=== PATIENT | male | born 1970 | race Two or more races ===

== ENCOUNTER 2021-11-09 17:24 | Emergency (ER) | payer MEDICARE, MEDICAID, SELFPAY ==
[2021-11-09 17:33] VITALS: BP 124/81; PULSE 98; RESP 18; TEMP 36.9; O2SAT 98; BMI 30.7
[2021-11-09 17:43] LABS: MANUAL DIFF FLAG NO
[2021-11-09 17:44] LABS: Basophils Percent Auto 0.3 % (0-2); Hematocrit 44.3 % (42.0-52.0); Imm Gran Abs Auto 0.04 X10*3/uL (0.00-0.03); Imm Gran Pct Auto 0.3 % (0.0-0.4); Lymphocytes Absolute Auto 2.8 X10*3/uL (1.2-4.9); Mean Corpuscular HGB Conc 33.9 g/dl (31.0-36.0); Mean Corpuscular Hemoglobin 29.8 pg (27.0-33.0); Mean Corpuscular Volume 88.1 fL (80.0-98.0); Monocytes Absolute Auto 1.1 X10*3/uL (0.1-1.2); Monocytes Percent Auto 8.7 % (2-11); Neutrophils Absolute Auto 9.2 x10*3/uL (2.0-8.3); Neutrophils Percent Auto 69.7 % (45-73); Platelet Count 282 X10*3/uL (160-400); Red Blood Count 5.03 X10*6/uL (4.60-5.80); Red Cell Distribution Width 14.8 % (11.0-16.0); White Blood Count 13.2 X10*3/uL (4.8-10.8)
[2021-11-09 18:03] LABS: Alanine Aminotransferase 250 U/L (0-40); Alkaline Phosphatase 155 U/L (39-117); Anion Gap 15 (12-20); Aspartate Amino Transferase 755 U/L (5-37); Bilirubin Direct 1.8 mg/dL (0.0-0.5); Bilirubin Total 3.3 mg/dL (0.0-1.0); Blood Urea Nitrogen 22 mg/dL (9-16); Calcium 9.1 mg/dL (8.4-10.2); Carbon Dioxide 20 mmol/L (22-29); Chloride 96 mmol/L (96-108); Creatinine Clr Calc Pharmacy 94.1; Estimated Glomerular Filt Rate > 60; Glucose Random 127 mg/dL (60-115); Lipase 89 U/L (8-78); Potassium 4.3 mmol/L (3.3-5.1); Sodium 127 mmol/L (135-145)
== END 2021-11-10 02:01 | disposition left against medical advice (07) ==
PROVIDERS: Emergency Provider Emergency Medicine
DX: R10.9 Unspecified abdominal pain (principal); R11.10 Vomiting, unspecified; R42 Dizziness and giddiness
CPT/HCPCS: 36415; 80048; 80076; 83690; 85025; 99283

== ENCOUNTER 2023-05-23 09:47 | Inpatient (IN) | payer OTHER, SELFPAY ==
[2023-05-23] VITALS (8 sets, daily range): BP systolic 99–159; BP diastolic 40–84; PULSE 86–100; RESP 14–24; TEMP 36.7–37.7; O2SAT 87–98; BMI 41.5
--- NOTE | ~2023-05-23 | CT_ITS ---
EXAMINATION: CT CHEST WITHOUT CONTRAST CLINICAL INFORMATION: abnormal cxr findings. COMPARISON: No pertinent prior studies are available for comparison. TECHNIQUE: Multidetector volumetric imaging was performed from the thoracic inlet through the lung bases without contrast. Sagittal and coronal reformatted images were obtained on the technologist workstation. Soft tissue and lung algorithms evaluated. Thick slab MIP images were performed to increase nodule conspicuity. This CT examination was performed using dose optimization techniques as appropriate, variously including the following: *Automated exposure control *Adjustment of mA and/or kV according to patient size (this includes techniques or standardized protocols for targeted exams where dose is matched to indication/reason for exam; i.e. extremities or head) *Use of iterative reconstruction technique DLP: 493 mGy-cm. FINDINGS: LUNG: Minimal dependent airspace disease more likely reflecting a component of atelectasis/consolidation more so the right base where there are some subtle air bronchograms present. Tiny calcified granuloma also seen in the right lower lobe. Central airways are unremarkable. Tiny layering right effusion MEDIASTINUM: The mediastinum is normal. The central vascular structures are unremarkable. No hilar or mediastinal lymphadenopathy. CORONARY ARTERY CALCIFICATION: Absent PERICARDIUM/PLEURA: Small right pleural effusion THYROID/VISUALIZED LOWER NECK: Unremarkable. CHEST WALL/AXILLA: Bilateral gynecomastia VISUALIZED UPPER ABDOMEN: Slight nodular configuration to the liver. Spleen measures 16.2 cm maximal AP diameter. There does appear to be recanalization of the umbilical vein and some perisplenic varicosities present suggesting underlying portal hypertension. BONES: Degenerative changes in the spine. CT/CT chest wo IV con IMPRESSION: 1. Small right pleural effusion with mild right basilar airspace disease more likely due to atelectasis/consolidation. 2. Nodular configuration to the liver with splenomegaly and recanalization of the umbilical vein suggesting underlying portal hypertension.
--- NOTE | ~2023-05-23 | US_ITS ---
LIMITED ABDOMINAL ULTRASOUND. HISTORY: Cirrhosis. Evaluate ascites. US/US abdomen limited FINDINGS/IMPRESSION: Ultrasound examination of the 4 quadrants of the abdomen demonstrates no evidence of ascites. Intra-abdominal organs are not evaluated by this exam.
--- NOTE | ~2023-05-23 | XR_ITS ---
EXAMINATION: XR CHEST CLINICAL INFORMATION: Hypoxia COMPARISON: None available. TECHNIQUE: Frontal view of the chest was obtained. FINDINGS: There are bilateral airspace opacities, somewhat nodular, greater in the mid and lower lung zones. The right hilum is prominent. There are no pleural effusions. The cardiac silhouette is magnified by the AP position. XR/XR chest 1V IMPRESSION: Bilateral perihilar and lower lobe airspace opacities, nonspecific. Differential considerations include infectious, inflammatory and neoplastic processes. Thoracic CT with contrast might be of benefit in better assessing the extent and etiology of the findings.
--- NOTE | ~2023-05-23 | US_ITS ---
EXAMINATION: US SCROTUM CLINICAL INFORMATION: Scrotal swelling.. COMPARISON: None available. TECHNIQUE: A sonogram of the scrotum was performed assessing white-scale appearance and color Doppler flow. Spectral Doppler analysis of the arterial and venous flow were performed in the testes bilaterally. FINDINGS: RIGHT: Right testicle measures 4.03 x 2.5 x 3.0 cm, volume 16.0 mL. No focal testicular parenchymal lesions are visualized. Spectral Doppler analysis of the arterial and venous flow is normal in the right testis. Right epididymal head is normal in size. No right hydrocele or varicocele is seen. Right epididymal Doppler flow is normal. There is right inguinal hernia containing fat extending to the scrotum. LEFT: Left testicle measures 4.2 x 1.9 x 2.9 cm, volume 12.1 mL. No focal testicular parenchymal lesions are visualized. Spectral Doppler analysis of the arterial and venous flow is normal in the left testis. Left epididymal head is normal in size. There is a left epididymal head cysts measuring 0.3 x 0.25 x 0.3 cm. No left hydrocele or varicocele is seen. Left epididymal Doppler flow is normal. US/US scrotum IMPRESSION: 1. Right inguinal hernia containing fat extending to superior scrotum. 2. Small left epididymal head cyst. 3. Both testes are unremarkable. There is normal color flow to testes and epididymis
--- NOTE | 2023-05-23 10:14 | ED_ITS ---
HPI - General Adult General Chief complaint: General Medical Stated complaint: DYSURIA [id number], SWOLLEN TESTICLES/LE Time Seen by Provider: 05/23/23 10:03 Source: patient and RN notes reviewed Mode of arrival: ambulatory Limitations: no limitations History of Present Illness HPI narrative: This is a 52-year-old Bulgarian-speaking male, with a history of hypertension, liver cirrhosis, history of alcohol abuse, presenting to the emergency department with complaints of bilateral lower extremity swelling for the last several months and testicular swelling which started last night. Patient is currently on hydrochlorothiazide, which he has been taking however has noticed of the diuretic is no longer working. Patient reports that yesterday while he was watching TV notice that his testicles were much more swollen. Patient denies any dysuria, hematuria, urinary frequency or urgency. Denies any fevers, chills, chest pain. No other complaints or concerns at this time. MD complaint: LE swelling, testicular swelling Onset (ago): day(s) Location: genitals and lower extremity Radiation: non-radiation Quality: aching Pain Consistency: constant Relieving factors: none Exacerbating factors: none Associated symptoms: denies other symptoms Treatments prior to arrival: none Related Data Home Medications Medication Instructions Recorded Confirmed albuterol sulfate 90 mcg/actuation 2 puff inhalation Q6H PRN wheezing 05/23/23 05/23/23 aerosol inhaler (Ventolin HFA) amlodipine 5 mg tablet 5 mg PO DAILY 05/23/23 05/23/23 cholecalciferol (vitamin D3) 25 25 mcg DAILY 05/23/23 05/23/23 mcg (1,000 unit) capsule folic acid 1 mg tablet 1 mg PO DAILY 05/23/23 05/23/23 furosemide 20 mg tablet 20 mg DAILY 05/23/23 05/23/23 hydrochlorothiazide 12.5 mg tablet 12.5 mg PO DAILY 05/23/23 05/23/23 hydroxyzine HCl 25 mg tablet 25 mg PO BID PRN Anxiety 05/23/23 05/23/23 omeprazole 20 mg capsule,delayed 20 mg DAILY 05/23/23 05/23/23 release sertraline 50 mg tablet 50 mg PO DAILY 05/23/23 05/23/23 spironolactone 50 mg tablet 50 mg PO DAILY 05/23/23 05/23/23 thiamine HCl (vitamin B1) 100 mg 100 mg DAILY 05/23/23 05/23/23 tablet trazodone 50 mg tablet 50 mg PO BEDTIME insomnia 05/23/23 05/23/23 Allergies Allergy/AdvReac Type Severity Reaction Status Date / Time aspirin Allergy Unknown rash Verified 05/23/23 10:05 Shrimp Flavor Allergy Unknown anaphylaxis Uncoded 05/23/23 10:05 Review of Systems 2 Review of Systems: Yes all other systems are reviewed and are negative Constitutional: Constitutional: Reports as per [facility] Past Medical History Medical History Pancreatic lesion Peripheral neuropathy Portal vein thrombosis Recurrent acute pancreatitis Joint pain Insomnia Anxiety Asthma Hypertension Depression Alcoholic fatty liver Alcoholic cirrhosis of liver Alcohol abuse Social History Social History Household Members: None Housing: Apartment Do you presently have visiting nurse or other home services: Yes (2 nurses and in the process of getting a air conditioning mechanic. for bp checks and meds) Alcohol intake: current Alcohol intake frequency: 3 or more drinks per day Alcohol type: beer Comment: pt refuse Patient Tobacco Use Status: Current everyday Tobacco user Tobacco use type: Cigarette Cigarette Packs Per Day: 1 Cigarettes Per Day: 20.0 Years Smoked: 33 Second Hand Smoke Exposure: No service: No Physical Exam ED Vital Signs: Vital Signs - 24 hr 05/23/23 09:58 05/23/23 10:13 05/23/23 11:41 Temperature 98.1 F 98.1 F 98.3 F Pulse Rate 86 86 96 Respiratory Rate 18 18 24 H Blood Pressure 133/66 133/66 99/45 L Pulse Oximetry 98 98 87 L Oxygen Delivery Method Room Air Room Air Room Air Oxygen Flow Rate 05/23/23 12:50 05/23/23 13:42 Temperature 98.4 F Pulse Rate 95 Respiratory Rate 20 Blood Pressure 121/68 Pulse Oximetry 95 98 Oxygen Delivery Method Room Air Oxymask Oxygen Flow Rate 3 BMI result Body Mass Index 41.5 Const General: cooperative, comfortable and no acute distress Orientation/consciousness: patient oriented x3 Limitations: no limitations HENMT Head: Yes normal to inspection, Yes normocephalic and Yes atraumatic Ears: hearing grossly normal bilaterally General nose exam: Normal external nose present Face and sinus: Yes normal facial exam Mouth: Normal oral and palatal mucosa present, oropharynx normal and moist mucous membranes Throat: Yes posterior oropharynx normal Eyes General: appearance normal, both eyes and all related structures Eyelids: Yes eyelids normal Conjunctivae: conjunctivae normal Sclerae: sclerae normal Pupils: Equal, round and reactive pupils present EOM: EOMs intact bilaterally Neck Neck: Yes normal visual inspection, Yes full ROM and Yes no lymphadenopathy Lymphatic: no lymphadenopathy noted Chest Chest palpation & inspection: normal inspection of the chest Resp Effort & Inspection: normal respiratory effort and able to speak in complete sentences Auscultation: clear to auscultation bilaterally, no crackles, no rales, no rhonchi and no wheezes Cardio Rate: regular rate Rhythm: regular rhythm Heart sounds: S1 normal heart sound present and S2 normal heart sound present GI Inspection: Yes normal to inspection Other: BL testes are edematous, nonerythematous,no palpable masses. non-tender. Examination performed with card hanger present at all times during examination. Skin General skin exam: no rashes or lesions noted Trauma: no lacerations or abrasions Wounds: no wounds Neuro General: patient oriented x3 and moves all extremities Cranial nerves: Yes Equal, round and reactive pupils present Extrem Other: 2+ pitting edema noted bilaterally, no overlying cellulitis. no calf tenderness. General: Yes normal to inspection Right upper extremity: normal to inspection Left upper extremity: normal to inspection Right lower extremity: normal to inspection Left lower extremity: normal to inspection Course Reevaluation(s) Reevaluation #1: I reported to patient's bedside as patient became hypoxic in the 80s. Patient was placed on 3 L of supplemental O2, likely due to worsening CHF. His oxygen improved to 94% on 3 L. Time: 11:45 Reevaluation #2: Patient's oxygen maintained at 95% on 3 L. x-ray review with me attending physician revealing evidence CHF, radiologist reviewed as bilateral perihilar and lower lobe airspace opacities. Scrotal ultrasound showing left epididymal head cyst. Given worsening lower extremity edema, patient needing IV diuresis. Patient will need further hospitalization for management of his treatment and care. Patient is agreeable. Time: 13:38 Reevaluation #3: Hemoccult negative. Discussed case with hospitalist, Dr. Wise, who accepts transfer of care. Transfer care initiated Time: 15:00 Medications Administered Discontinued Medications Generic Name Dose Route Start Last Admin Trade Name Freq PRN Reason Stop Dose Admin Acetaminophen 650 mg 05/23/23 16:00 05/26/23 17:13 Acetaminophen 325 Mg Tablet PO 650 mg Q6H PRN Administration Pain, Mild (Pain Scale 1-3) Folic Acid 1 mg 05/24/23 09:00 05/27/23 10:49 Folic Acid 1 Mg Tablet PO 1 mg DAILY LUCRETIA Administration Furosemide 60 mg 05/23/23 12:58 05/23/23 14:57 Furosemide 100 Mg/10 Ml Vial IVPUSH 05/23/23 12:59 60 mg ONCE ONE Administration Protocol Furosemide 40 mg 05/23/23 21:00 05/26/23 17:11 Furosemide 40 Mg/4 Ml Vial IVPUSH 40 mg BID@0900,1800 LUCRETIA Administration Protocol Furosemide 40 mg 05/27/23 09:00 05/27/23 10:48 Furosemide 40 Mg Tablet PO 40 mg DAILY LUCRETIA Administration Protocol Heparin Sodium (Porcine) 5,000 unit 05/23/23 16:00 05/27/23 10:49 Heparin Sodium,Porcine 5,000 Unit/Ml Vial SUBCUT 5,000 unit Q8H LUCRETIA Administration Influenza Virus Vaccine 0.5 ml 05/23/23 20:06 05/23/23 20:47 Flu Vacc Mg5145-25(6mos Up)/Pf 0.5 Ml Syringe IM 05/23/23 20:07 0.5 ml .ONCE ONE Administration Losartan Potassium 25 mg 05/24/23 11:45 05/27/23 10:49 Losartan Potassium 25 Mg Tablet PO 25 mg DAILY LUCRETIA Administration Protocol Omeprazole 20 mg 05/24/23 09:00 05/27/23 10:49 Omeprazole 20 Mg Capsule.Dr PO 20 mg DAILY LUCRETIA Administration Phenobarbital 45 mg 05/24/23 09:00 05/25/23 19:41 Phenobarbital 15 Mg Tablet PO 05/25/23 21:01 45 mg BID LUCRETIA Administration Protocol Phenobarbital 30 mg 05/26/23 09:00 05/27/23 10:52 Phenobarbital 30 Mg Tablet PO 05/27/23 21:01 30 mg BID LUCRETIA Administration Protocol Phenobarbital Sodium 260 mg 05/23/23 20:00 05/24/23 04:56 Phenobarbital Sodium 130 Mg/Ml Vial IM 05/24/23 02:01 260 mg Q3H LUCRETIA Administration Protocol Potassium Chloride 40 meq 05/24/23 13:20 05/25/23 19:41 Potassium Chloride Packet 20 Meq Packet PO 05/25/23 21:01 40 meq BID LUCRETIA Administration Sertraline HCl 50 mg 05/24/23 09:00 05/27/23 10:49 Sertraline Hcl 50 Mg Tablet PO 50 mg DAILY LUCRETIA Administration Sodium Chloride 3 ml 05/23/23 16:00 05/27/23 10:50 0.9 % Sodium Chloride Flush 3 Ml Syringe IVFLUSH 3 ml QSHIFT LUCRETIA Administration Spironolactone 50 mg 05/24/23 09:00 05/27/23 10:47 Spironolactone 25 Mg Tablet PO 50 mg DAILY LUCRETIA Administration Protocol Thiamine HCl 100 mg 05/24/23 09:00 05/27/23 10:49 Thiamine Hcl 100 Mg Tablet PO 100 mg DAILY LUCRETIA Administration Trazodone HCl 50 mg 05/23/23 21:00 05/26/23 20:20 Trazodone Hcl 50 Mg Tablet PO 50 mg BEDTIME LUCRETIA Administration Medical Decision Making Medical Decision Making [facility] Narrative: This is a 52-year-old Bulgarian-speaking male, with a history of hypertension, liver cirrhosis, history of alcohol abuse, presenting to the emergency department with complaints of bilateral lower extremity swelling for the last several months and testicular swelling which started last night. He has had no CP. Currently on lasix and spirolactone and has been compliant with these medications without any relkiuef. He typically goes to [facility] care. On arrival, pt on 3L of O2 saturating at 98%. BP stable. Scrotum is edematous, nontender, no overlying cellulitis - likely due to edema. Plan: Labs, ekg, scrotal US, cxr, Differential Diagnosis Differential Diagnoses: The differential diagnosis associated with the presentation includes Admission/Observation Consideration of admission/observation: Escalation of care including admission/observation considered Lab Data [facility] Lab Attestation statement: I reviewed the patient's lab results. 05/26/23 06:25 05/27/23 06:13 Labs: Lab Results 05/23/23 05/23/23 05/23/23 Range/Units 10:56 11:26 12:20 WBC 7.6 (4.8-10.8) X10*3/uL RBC 3.56 L D (4.60-5.80) X10*6/uL Hgb 8.6 L D (14.0-18.0) g/dl Hct 28.3 L D (42.0-52.0) % MCV 79.5 L (80.0-98.0) fL MCH 24.2 L (27.0-33.0) pg MCHC 30.4 L (31.0-36.0) g/dl RDW 18.1 H (11.0-16.0) % Plt Count 166 D (160-400) X10*3/uL MPV 9.8 (9.4-12.4) fL Immature Gran % (Auto) 0.3 (0.0-0.4) % Neut % (Auto) 66.5 (45-73) % Lymph % (Auto) 22.5 (20-40) % [place] % (Auto) 9.0 (2-11) % Eos % (Auto) 1.0 (0-4) % Baso % (Auto) 0.7 (0-2) % Lymph # (Auto) 1.7 (1.2-4.9) X10*3/uL [place] # (Auto) 0.7 (0.1-1.2) X10*3/uL Eos # (Auto) 0.1 (0.0-0.4) X10*3/uL Baso # (Auto) 0.1 (0.0-0.2) X10*3/uL Abs Immat Gran (auto) 0.02 (0.00-0.03) X10*3/uL Absolute Neuts (auto) 5.1 (2.0-8.3) x10*3/uL Absolute Nucleated RBC 0.000 (0.0-0.012) X10*3/uL Nucleated RBC % (auto) 0.0 (0.0-0.2) /100WBC Sodium 139 (135-145) mmol/L Potassium 4.3 (3.3-5.1) mmol/L Chloride 106 (96-108) mmol/L Carbon Dioxide 26 (22-29) mmol/L Anion Gap 11 L (12-20) BUN 13 (9-16) mg/dL Creatinine 0.78 (0.5-1.4) mg/dL Estim Creat Clear Calc 148.0 Estimated GFR > 60 Random Glucose 107 (60-115) mg/dL Calcium 8.0 L D (8.4-10.2) mg/dL Magnesium 2.3 (1.6-2.6) mg/dL Iron 38 L (45-160) mcg/dL TIBC 443 H (228-428) mcg/dL % Saturation 9 L (15-50) % Unsat Iron Binding 405 ug/dL Ferritin 17 L (20-250) ng/mL Total Bilirubin 0.9 (0.0-1.0) mg/dL AST 100 H (5-37) U/L ALT 43 H (0-40) U/L Alkaline Phosphatase 118 H (39-117) U/L Troponin I High Sens 12.3 (<3.5-35.0) ng/L B-Natriuretic Peptide 182 H (<100) pg/mL Total Protein 7.7 (6.5-8.0) g/dL Albumin 3.7 (3.5-5.0) g/dL Lipase 47 (8-78) U/L Urine Color Yellow Urine Appearance Clear Urine pH 5.5 (5.0-9.0) Ur Specific [place] 1.010 (1.005-1.025) Urine Protein Negative (Neg-Trace) mg/dL Urine Glucose (UA) Negative (Negative) mg/dL Urine Ketones Negative (Negative) mg/dL Urine Blood Negative (Negative) Urine Nitrite Negative (Negative) Ur Leukocyte Esterase Negative (Negative) Urine RBC 0-2 (0-2) /HPF Urine WBC 0-5 (0-5) /HPF Ur Squamous Epith Cells 0-2 (0-2) /HPF Urine Bacteria None Seen (None Seen) Hyaline Casts 0-2 (0-2) /LPF Stool Occult Blood (NEGATIVE) Ethyl Alcohol 277 mg/dL 05/23/23 Range/Units 13:15 WBC (4.8-10.8) X10*3/uL RBC (4.60-5.80) X10*6/uL Hgb (14.0-18.0) g/dl Hct (42.0-52.0) % MCV (80.0-98.0) fL MCH (27.0-33.0) pg MCHC (31.0-36.0) g/dl RDW (11.0-16.0) % Plt Count (160-400) X10*3/uL MPV (9.4-12.4) fL Immature Gran % (Auto) (0.0-0.4) % Neut % (Auto) (45-73) % Lymph % (Auto) (20-40) % [place] % (Auto) (2-11) % Eos % (Auto) (0-4) % Baso % (Auto) (0-2) % Lymph # (Auto) (1.2-4.9) X10*3/uL [place] # (Auto) (0.1-1.2) X10*3/uL Eos # (Auto) (0.0-0.4) X10*3/uL Baso # (Auto) (0.0-0.2) X10*3/uL Abs Immat Gran (auto) (0.00-0.03) X10*3/uL Absolute Neuts (auto) (2.0-8.3) x10*3/uL Absolute Nucleated RBC (0.0-0.012) X10*3/uL Nucleated RBC % (auto) (0.0-0.2) /100WBC Sodium (135-145) mmol/L Potassium (3.3-5.1) mmol/L Chloride (96-108) mmol/L Carbon Dioxide (22-29) mmol/L Anion Gap (12-20) BUN (9-16) mg/dL Creatinine (0.5-1.4) mg/dL Estim Creat Clear Calc Estimated GFR Random Glucose (60-115) mg/dL Calcium (8.4-10.2) mg/dL Magnesium (1.6-2.6) mg/dL Iron (45-160) mcg/dL TIBC (228-428) mcg/dL % Saturation (15-50) % Unsat Iron Binding ug/dL Ferritin (20-250) ng/mL Total Bilirubin (0.0-1.0) mg/dL AST (5-37) U/L ALT (0-40) U/L Alkaline Phosphatase (39-117) U/L Troponin I High Sens (<3.5-35.0) ng/L B-Natriuretic Peptide (<100) pg/mL Total Protein (6.5-8.0) g/dL Albumin (3.5-5.0) g/dL Lipase (8-78) U/L Urine Color Urine Appearance Urine pH (5.0-9.0) Ur Specific [place] (1.005-1.025) Urine Protein (Neg-Trace) mg/dL Urine Glucose (UA) (Negative) mg/dL Urine Ketones (Negative) mg/dL Urine Blood (Negative) Urine Nitrite (Negative) Ur Leukocyte Esterase (Negative) Urine RBC (0-2) /HPF Urine WBC (0-5) /HPF Ur Squamous Epith Cells (0-2) /HPF Urine Bacteria (None Seen) Hyaline Casts (0-2) /LPF Stool Occult Blood NEGATIVE (NEGATIVE) Ethyl Alcohol mg/dL Radiology Impression Discussion of test interpretation with radiology: I have reviewed the radiologist's reading. External Record Review External record reviewed: Inpatient record, Office record, Outpatient record, Prior outpatient labs, Prior outpatient radiology, Primary care record and Outside ED record Critical Care Time Critical Care Time Critical Care Time: Yes Total Critical Care Time: 40 Attestation: I have personally provided critical care time exclusive of time spent on separately billable procedures. Time includes review of lab data, radiology results, discussion with consultants, and monitoring for potential decompensation. Intervention performed as documented. Discharge Plan Discharge Clinical Impression: Acute exacerbation of CHF (congestive heart failure), Hypoxia Anemia Qualifiers: Anemia type: other cause Patient Disposition: Admitted As Inpatient Interventions: Admission Worksheet (ED) Last Done: 05/23/23 15:09 Discharge Date/Time: 05/23/23 18:19
[2023-05-23 11:03] LABS: MANUAL DIFF FLAG NO
[2023-05-23 11:06] LABS: Basophils Absolute Auto 0.1 X10*3/uL (0.0-0.2); Basophils Percent Auto 0.7 % (0-2); Eosinophils Absolute Auto 0.1 X10*3/uL (0.0-0.4); Hematocrit 28.3 % (42.0-52.0); Hemoglobin 8.6 g/dl (14.0-18.0); Imm Gran Abs Auto 0.02 X10*3/uL (0.00-0.03); Imm Gran Pct Auto 0.3 % (0.0-0.4); Lymphocytes Absolute Auto 1.7 X10*3/uL (1.2-4.9); Lymphocytes Percent Auto 22.5 % (20-40); Mean Corpuscular HGB Conc 30.4 g/dl (31.0-36.0); Mean Corpuscular Hemoglobin 24.2 pg (27.0-33.0); Mean Corpuscular Volume 79.5 fL (80.0-98.0); Mean Platelet Volume 9.8 fL (9.4-12.4); Monocytes Absolute Auto 0.7 X10*3/uL (0.1-1.2); Neutrophils Absolute Auto 5.1 x10*3/uL (2.0-8.3); Neutrophils Percent Auto 66.5 % (45-73); Platelet Count 166 X10*3/uL (160-400); Red Blood Count 3.56 X10*6/uL (4.60-5.80); Red Cell Distribution Width 18.1 % (11.0-16.0); White Blood Count 7.6 X10*3/uL (4.8-10.8)
[2023-05-23 11:24] LABS: B Type Natriuretic Peptide 182 pg/mL (<100)
--- NOTE | 2023-05-23 11:25 | PC.NURSE ---
500 ML urine output via urinal; urine clear yellow without foul odor.
[2023-05-23 11:40] LABS: Appearance Urine Clear; Color Urine Yellow; Glucose Urine UA Negative (Negative); Leukocyte Esterase Urine Negative (Negative); Nitrite Urine Negative (Negative); PH 5.5 (5.0-9.0); Urine Blood Negative (Negative); Urine Ketones Negative (Negative); Urine Protein Negative (Neg-Trace)
[2023-05-23 11:43] LABS: Bacteria Urine None Seen (None Seen); Hyaline Casts Urine 0-2 /LPF (0-2); RBC Urine 0-2 /HPF (0-2); Squamous Epithelial Cell Urine 0-2 /HPF (0-2); WBC Urine 0-5 /HPF (0-5)
--- NOTE | 2023-05-23 11:47 | PC.NURSE ---
US at bedside.
--- NOTE | 2023-05-23 12:01 | PC.NURSE ---
Pt desat to 80% on RA; 2L via oxymask applied.
[2023-05-23 12:40] LABS: Anion Gap 11 (12-20)
[2023-05-23 12:44] LABS: Alanine Aminotransferase 43 U/L (0-40); Albumin Level 3.7 g/dL (3.5-5.0); Alkaline Phosphatase 118 U/L (39-117); Aspartate Amino Transferase 100 U/L (5-37); Bilirubin Total 0.9 mg/dL (0.0-1.0); Blood Urea Nitrogen 13 mg/dL (9-16); Carbon Dioxide 26 mmol/L (22-29); Chloride 106 mmol/L (96-108); Estimated Glomerular Filt Rate > 60; Glucose Random 107 mg/dL (60-115); Lipase 47 U/L (8-78); Magnesium 2.3 mg/dL (1.6-2.6); Potassium 4.3 mmol/L (3.3-5.1); Sodium 139 mmol/L (135-145); Total Protein 7.7 g/dL (6.5-8.0)
[2023-05-23 12:51] LABS: Troponin-I High Sensitivity 12.3 ng/L (<3.5-35.0)
[2023-05-23 13:26] LABS: OBS Int Ctl Valid YES; OBS1 NEGATIVE (NEGATIVE)
[2023-05-23 14:19] LABS: Ethanol 277 mg/dL
[2023-05-23] MEDS: Furosemide 100 MG/10 ML VIAL 60 MG IVPUSH (14:57)
--- NOTE | 2023-05-23 16:03 | PM.IMHP ---
History of Present Illness Date of Service: 05/23/23 Chief Complaint: swelling 52-year-old man presented there with complaints of worsening bilateral lower extremity edema that says has been ongoing for the last several months but worsening recently. He reported scrotal swelling that started last night. He reports drinking at least 6-8 beers every day and smokes about a pack a cigarettes a day. Denies fever, chills, nausea, vomiting, diarrhea, chest pain. Labs showing microcytic anemia with history of liver cirrhosis a mildly elevated liver enzymes likely secondary to alcohol abuse as levels 277, stool occult negative. Chest x-ray showing bilateral perihilar and lower lobe airspace opacifications. Scrotal ultrasound showing right inguinal hernia with both testes unremarkable. Blood pressure and softer side after receiving IV Lasix. Plan is to admit patient for further management and treatment of acute congestive heart failure. Unspecified Review of Systems Review of Systems: Denies any recent fever chills or decrease in appetite respiratory denies shortness breath cardiovascular denies chest pain gastrointestinal denies any dysphagia abdominal pain nausea vomiting or diarrhea genitourinary denies any dysuria frequency or hematuria musculoskeletal denies any joint pain or swelling neuropsych denies any weakness or seizures all other systems reviewed are negative PMFSH Medical History Pancreatic lesion Peripheral neuropathy Portal vein thrombosis Recurrent acute pancreatitis Joint pain Insomnia Anxiety Asthma Hypertension Depression Alcoholic fatty liver Alcoholic cirrhosis of liver Alcohol abuse Pertinent family history: Heart disease Social History (Updated 05/23/23 @ 18:21 by Kasia Aaron NP) Alcohol intake: current Alcohol intake frequency: 3 or more drinks per day Alcohol type: beer Comment: 6-8 beers a day Patient Tobacco Use Status: Current everyday Tobacco user Cigarette Packs Per Day: 1 Meds Allergies Allergy/AdvReac Type Severity Reaction Status Date / Time aspirin Allergy Unknown rash Verified 05/23/23 10:05 Shrimp Flavor Allergy Unknown anaphylaxis Uncoded 05/23/23 10:05 Active Medications: Current Medications Acetaminophen (Acetaminophen 325 Mg Tablet) 650 mg PO Q6H PRN PRN Reason: Pain, Mild (Pain Scale 1-3) Furosemide (Furosemide 40 Mg/4 Ml Vial) 40 mg IVPUSH BID@0900,1800 [facility]; Protocol Heparin Sodium (Porcine) (Heparin Sodium,Porcine 5,000 Unit/Ml Vial) 5,000 unit SUBCUT Q8H [facility] Ondansetron HCl (Ondansetron Hcl 4 Mg/2 Ml Vial) 4 mg IVPUSH Q8H PRN PRN Reason: Nausea and Vomiting Sodium Chloride (0.9 % Sodium Chloride Flush 3 Ml Syringe) 3 ml IVFLUSH QSHIFT [facility] Home Medications Medication Instructions Recorded Confirmed Last Taken Type albuterol sulfate 90 mcg/actuation 2 puff inhalation Q6H PRN wheezing 05/23/23 05/23/23 Unknown History aerosol inhaler (Ventolin HFA) amlodipine 5 mg tablet 5 mg PO DAILY 05/23/23 05/23/23 Unknown History cholecalciferol (vitamin D3) 25 25 mcg DAILY 05/23/23 05/23/23 Unknown History mcg (1,000 unit) capsule folic acid 1 mg tablet 1 mg PO DAILY 05/23/23 05/23/23 Unknown History furosemide 20 mg tablet 20 mg DAILY 05/23/23 05/23/23 Unknown History hydrochlorothiazide 12.5 mg tablet 12.5 mg PO DAILY 05/23/23 05/23/23 Unknown History hydroxyzine HCl 25 mg tablet 25 mg PO BID PRN Anxiety 05/23/23 05/23/23 Unknown History omeprazole 20 mg capsule,delayed 20 mg DAILY 05/23/23 05/23/23 Unknown History release sertraline 50 mg tablet 50 mg PO DAILY 05/23/23 05/23/23 Unknown History spironolactone 50 mg tablet 50 mg PO DAILY 05/23/23 05/23/23 Unknown History thiamine HCl (vitamin B1) 100 mg 100 mg DAILY 05/23/23 05/23/23 Unknown History tablet trazodone 50 mg tablet 50 mg PO BEDTIME insomnia 05/23/23 05/23/23 Unknown History Physical Exam Vital Signs and Narrative: Vital Signs: Last Vital Signs Temp 98.4 F 05/23/23 12:50 Pulse 97 05/23/23 14:59 Resp 14 05/23/23 14:59 BP 108/51 L 05/23/23 14:59 Pulse Ox 98 05/23/23 14:59 O2 Del Method Oxymask 05/23/23 14:59 O2 Flow Rate 3 05/23/23 14:59 BMI result Body Mass Index 41.5 Appearing in no acute distress head is normocephalic atraumatic eyes pupils are PERRLA sclera is anicteric mouth throat mucous membranes are intact and moist neck is supple no lymphadenopathy, no JVD noted lung sounds are clear to auscultation heart regular rate rhythm, clear S1, S2 positive bowel sounds, abdomen is soft, nontender neuro patient is alert x3, no focal deficits +2-3 pedal edema, tense edema to calf and lin area, edema all the way up to thighs, noted scrotal edema Results Labs 05/23/23 10:56 05/23/23 12:20 Labs: Laboratory Results - last 24 hr 05/23/23 05/23/23 05/23/23 10:56 11:26 12:20 MCV 79.5 L MCH 24.2 L MCHC 30.4 L RDW 18.1 H Plt Count 166 D MPV 9.8 Immature Gran % (Auto) 0.3 Neut % (Auto) 66.5 Lymph % (Auto) 22.5 [place] % (Auto) 9.0 Eos % (Auto) 1.0 Baso % (Auto) 0.7 Lymph # (Auto) 1.7 [place] # (Auto) 0.7 Eos # (Auto) 0.1 Baso # (Auto) 0.1 Abs Immat Gran (auto) 0.02 Absolute Neuts (auto) 5.1 Absolute Nucleated RBC 0.000 Nucleated RBC % (auto) 0.0 Anion Gap 11 L Estim Creat Clear Calc 148.0 Estimated GFR > 60 Random Glucose 107 Calcium 8.0 L D Magnesium 2.3 Total Bilirubin 0.9 AST 100 H ALT 43 H Alkaline Phosphatase 118 H B-Natriuretic Peptide 182 H Total Protein 7.7 Albumin 3.7 Lipase 47 Urine Color Yellow Urine Appearance Clear Urine pH 5.5 Ur Specific [place] 1.010 Urine Protein Negative Urine Glucose (UA) Negative Urine Ketones Negative Urine Blood Negative Urine Nitrite Negative Ur Leukocyte Esterase Negative Urine RBC 0-2 Urine WBC 0-5 Ur Squamous Epith Cells 0-2 Urine Bacteria None Seen Hyaline Casts 0-2 Stool Occult Blood Ethyl Alcohol 277 05/23/23 13:15 MCV MCH MCHC RDW Plt Count MPV Immature Gran % (Auto) Neut % (Auto) Lymph % (Auto) [place] % (Auto) Eos % (Auto) Baso % (Auto) Lymph # (Auto) [place] # (Auto) Eos # (Auto) Baso # (Auto) Abs Immat Gran (auto) Absolute Neuts (auto) Absolute Nucleated RBC Nucleated RBC % (auto) Anion Gap Estim Creat Clear Calc Estimated GFR Random Glucose Calcium Magnesium Total Bilirubin AST ALT Alkaline Phosphatase B-Natriuretic Peptide Total Protein Albumin Lipase Urine Color Urine Appearance Urine pH Ur Specific [place] Urine Protein Urine Glucose (UA) Urine Ketones Urine Blood Urine Nitrite Ur Leukocyte Esterase Urine RBC Urine WBC Ur Squamous Epith Cells Urine Bacteria Hyaline Casts Stool Occult Blood NEGATIVE Ethyl Alcohol Imaging Radiologist's Impressions: Impressions Scrotum Ultrasound 05/23/23 12:03 IMPRESSION: 1. Right inguinal hernia containing fat extending to superior scrotum. 2. Small left epididymal head cyst. 3. Both testes are unremarkable. There is normal color flow to testes and epididymis Chest X-Ray 05/23/23 12:30 IMPRESSION: Bilateral perihilar and lower lobe airspace opacities, nonspecific. Differential considerations include infectious, inflammatory and neoplastic processes. Thoracic CT with contrast might be of benefit in better assessing the extent and etiology of the findings. Assessment and Plan (1) Acute exacerbation of CHF (congestive heart failure): Status: Acute 52-year-old man admitted with increased lower extremity edema, scrotal edema with history of alcohol abuse and liver cirrhosis Fluid overload. Acute CHF, Unspecified Likely secondary to liver disease Start IV Lasix 40 mg b.i.d. Cardiology consultation Echocardiogram Strict intake and output Daily weight Monitor on telemetry History of liver cirrhosis Elevated LFTs likely secondary to alcohol abuse Continue spironolactone Monitor LFTs Ultrasound for ascites check, history of paracentesis Chronic alcohol abuse phenobarbitol protocol drinks 6-8 beers a day Discussed importance of cessation Continue thiamine, folic acid Addiction Team consult COPD/asthma No exacerbation Continue albuterol as needed Hypertension with low blood pressure readings Hold hydrochlorothiazide and amlodipine Mental health Continue home medications GERD Continue PPI DVT prophylaxis with heparin Full code Patient requires at least 48 hours of admission for treatment of congestive heart failure requiring IV Lasix, specialty consultation and echocardiogram cannot be done at a lesser acute setting as patient would decompensate quickly (2) Anemia: Status: Acute Quality Stroke Does the patient have a stroke diagnosis?: No VTE Prior VTE?: No VTE Risk Level:: Medical - moderate - high VTE Device Contraindication: Treatment Not Indicated VTE Drug Contraindication: N/A - Med Ordered
--- NOTE | 2023-05-23 16:09 | PHA.MEDREC ---
Pharmacy Consult ? Medication Reconciliation Pharmacy has completed the medication reconciliation. Patient unaware of any medications since he has VNA. Received medication list from [facility] [facility] [employer] in [place]. List was updated 05/05/23. Per claim 2 new medications were added trazodone on 05/18/23 and HCTZ on 05/08/23. List has acamprosate however this was last filled 04/11/23 for a 15 days supply therefore I did not include in home medication list. Ana Gonzalez, PharmD
[2023-05-23] MEDS: Heparin Sodium,Porcine 5,000 UNIT/ML VIAL 5000 UNIT SUBCUT (17:37)
[2023-05-23] MEDS: 0.9 % Sodium Chloride Flush 3 ML SYRINGE IVFLUSH ×2 (17:37→20:52)
--- NOTE | 2023-05-23 20:01 | P.CNGI_ITS ---
History of Present Illness Data of Consult Service Date: 05/23/23 Requesting physician: Kasia Aaron Primary Care Provider: Unknown Physician HPI Reason for consult: anemia 52-year-old man w/ hx of alcohol abuse who i am seeing for assessment for anemia. Patient came to ED after noting wosening exertional SOB with ncreased ankle sweliing, and scrotal swelling. HE does admit to rectal bleeding with fresh blood noted when he wipes himsefl, denies hematuria, melena, nose bleeds, hematuria. He reports drinking at least 6-8 beers every day and smokes about a pack a cigarettes a day. Denies fever, chills, nausea, vomiting, diarrhea, chest pain. Review of Systems 2 Review of Systems: Constitutional : No Weight loss, No Fever, No Chills ENT/Mouth : No sore throat, No Rhinorrhea Eyes: No Swelling, No Redness Cardiovascular : No Chest Pain, + SOB, + Edema Respiratory : No Cough, No Sputum, No Wheezing Gastrointestinal : see HPI Genitourinary : NO Dysuria, No Urinary Frequency, No Hematuria, No Urgency Musculoskeletal : No joint pain, No Myalgias, No Joint Swelling Skin : No Skin Lesions, No rash Neuro : No Weakness, No Numbness, No Dizziness, No Headache Psych : No Anxiety/Panic, No Depression Heme/Lymph: No Bruising, No Lymphadenopathy Endocrine : No Polyuria, No Polydipsia All other systems reviewed and are negative. [facility] Past Medical History Medical History Pancreatic lesion Peripheral neuropathy Portal vein thrombosis Recurrent acute pancreatitis Joint pain Insomnia Anxiety Asthma Hypertension Depression Alcoholic fatty liver Alcoholic cirrhosis of liver Alcohol abuse Family History Pertinent family history: fh of cardiac disease Social History Social History (Updated 05/23/23 @ 18:21 by Kasia Aaron, DIRECTOR OF CASEWORK DEPARTMENT) Alcohol intake: current Alcohol intake frequency: 3 or more drinks per day Alcohol type: beer Comment: 6-8 beers a day Patient Tobacco Use Status: Current everyday Tobacco user Cigarette Packs Per Day: 1 Smoked in Last 30 Days: Yes Use of substances other than those prescribed or required for medical reasons: No Advance Directives: No Advance Directives Information Provided: Yes Nutrition Risks: No Nutritional Risk Meds Allergies Allergy/AdvReac Type Severity Reaction Status Date / Time aspirin Allergy Unknown rash Verified 05/23/23 10:05 Shrimp Flavor Allergy Unknown anaphylaxis Uncoded 05/23/23 10:05 Active Medications: Current Medications Acetaminophen (Acetaminophen 325 Mg Tablet) 650 mg PO Q6H PRN PRN Reason: Pain, Mild (Pain Scale 1-3) Albuterol Sulfate (Albuterol Sulfate 90 Mcg 8 Gm Inhaler) 2 puff INHALE Q6H PRN PRN Reason: wheezing Folic Acid (Folic Acid 1 Mg Tablet) 1 mg PO DAILY [facility] Furosemide (Furosemide 40 Mg/4 Ml Vial) 40 mg IVPUSH BID@0900,1800 [facility]; Protocol Heparin Sodium (Porcine) (Heparin Sodium,Porcine 5,000 Unit/Ml Vial) 5,000 unit SUBCUT Q8H [facility] Last Admin: 05/23/23 17:37 Dose: 5,000 unit Hydroxyzine HCl (Hydroxyzine Hcl 25 Mg Tablet) 25 mg PO BID PRN PRN Reason: Anxiety Omeprazole (Omeprazole 20 Mg Capsule.Dr) 20 mg PO DAILY [facility] Ondansetron HCl (Ondansetron Hcl 4 Mg/2 Ml Vial) 4 mg IVPUSH Q8H PRN PRN Reason: Nausea and Vomiting Pharmacy Consult (Consult Rx Etoh Phenob Po Only) 1 each MISCELLANE ONCE PRN; Protocol PRN Reason: Consult order Phenobarbital (Phenobarbital 15 Mg Tablet) 45 mg PO BID [facility]; Protocol Stop: 05/25/23 21:01 Phenobarbital (Phenobarbital 30 Mg Tablet) 30 mg PO BID [facility]; Protocol Stop: 05/27/23 21:01 Phenobarbital (Phenobarbital 30 Mg Tablet) 30 mg PO DAILY [facility]; Protocol Stop: 05/29/23 09:01 Phenobarbital Sodium (Phenobarbital Sodium 130 Mg/Ml Vial) 260 mg IM Q3H [facility]; Protocol Stop: 05/24/23 02:01 Sertraline HCl (Sertraline Hcl 50 Mg Tablet) 50 mg PO DAILY [facility] Sodium Chloride (0.9 % Sodium Chloride Flush 3 Ml Syringe) 3 ml IVFLUSH QSHIFT [facility] Last Admin: 05/23/23 17:37 Dose: 3 ml Spironolactone (Spironolactone 25 Mg Tablet) 50 mg PO DAILY [facility]; Protocol Thiamine HCl (Thiamine Hcl 100 Mg Tablet) 100 mg PO DAILY [facility] Trazodone HCl (Trazodone Hcl 50 Mg Tablet) 50 mg PO BEDTIME [facility] Home Medications Medication Instructions Recorded Confirmed Last Taken Type albuterol sulfate 90 mcg/actuation 2 puff inhalation Q6H PRN wheezing 05/23/23 05/23/23 Unknown History aerosol inhaler (Ventolin HFA) amlodipine 5 mg tablet 5 mg PO DAILY 05/23/23 05/23/23 Unknown History cholecalciferol (vitamin D3) 25 25 mcg DAILY 05/23/23 05/23/23 Unknown History mcg (1,000 unit) capsule folic acid 1 mg tablet 1 mg PO DAILY 05/23/23 05/23/23 Unknown History furosemide 20 mg tablet 20 mg DAILY 05/23/23 05/23/23 Unknown History hydrochlorothiazide 12.5 mg tablet 12.5 mg PO DAILY 05/23/23 05/23/23 Unknown History hydroxyzine HCl 25 mg tablet 25 mg PO BID PRN Anxiety 05/23/23 05/23/23 Unknown History omeprazole 20 mg capsule,delayed 20 mg DAILY 05/23/23 05/23/23 Unknown History release sertraline 50 mg tablet 50 mg PO DAILY 05/23/23 05/23/23 Unknown History spironolactone 50 mg tablet 50 mg PO DAILY 05/23/23 05/23/23 Unknown History thiamine HCl (vitamin B1) 100 mg 100 mg DAILY 05/23/23 05/23/23 Unknown History tablet trazodone 50 mg tablet 50 mg PO BEDTIME insomnia 05/23/23 05/23/23 Unknown History Physical Exam 2 Vital Signs: Vital Signs: Last Vital Signs Temp 98.8 F 05/23/23 19:42 Pulse 100 05/23/23 19:42 Resp 18 05/23/23 19:42 BP 100/40 L 05/23/23 19:42 Pulse Ox 98 05/23/23 19:42 O2 Del Method Room Air 05/23/23 19:42 O2 Flow Rate 3 05/23/23 14:59 BMI result Body Mass Index 41.5 EXAM: GENERAL: The patient is obese, with roscea VITAL SIGNS:see workflow HEENT: Nonicteric sclerae, PERRLA, EOMI. Oropharynx clear. Moist mucous membranes. Conjunctivae appear pale. No thyroid mass. CHEST: Chest wall is nontender. HEART: Regular rate and rhythm without murmurs. LUNGS: Clear to auscultation bilaterally. ABDOMEN: Soft, positive bowel sounds, nontender, no organomegaly.no flank tenderness SKIN: No rash, no excessive bruising, petechiae, or purpura. NEUROLOGIC: Cranial nerves II-XII intact without motor/sensory deficit. Psych: Appearance: grossly normal Results Labs 05/23/23 10:56 05/23/23 12:20 Labs: Short CBC 05/23/23 Range/Units 10:56 WBC 7.6 (4.8-10.8) X10*3/uL Hgb 8.6 L D (14.0-18.0) g/dl Hct 28.3 L D (42.0-52.0) % Plt Count 166 D (160-400) X10*3/uL BMP 05/23/23 12:20 Sodium 139 Potassium 4.3 Chloride 106 Carbon Dioxide 26 BUN 13 Creatinine 0.78 Calcium 8.0 L D Liver Function 05/23/23 Range/Units 12:20 Total Bilirubin 0.9 (0.0-1.0) mg/dL AST 100 H (5-37) U/L ALT 43 H (0-40) U/L Alkaline Phosphatase 118 H (39-117) U/L Albumin 3.7 (3.5-5.0) g/dL Urine 05/23/23 Range/Units 11:26 Urine Color Yellow Urine Appearance Clear Urine pH 5.5 (5.0-9.0) Ur Specific [place] 1.010 (1.005-1.025) Urine Protein Negative (Neg-Trace) mg/dL Urine Glucose (UA) Negative (Negative) mg/dL Imaging CT scan - chest: Attestation: I personally reviewed and interpreted this imaging study as follows: (varices, pleural effusion, small) Chest x-ray: Attestation: I personally reviewed and interpreted this imaging study as follows: (patchy infiltrates and shadowing ) Assessment and Plan (1) Anemia: Qualifiers: Anemia type: other cause Status: Acute Plan 1/ Anemia, with probable alcoholic cirhosis with imaging suggestive of sequelae of portal htn. ddx; hemorrhoids, alcoholic gastritis, malnutrition 2/ Edema and SOB possible 2/2 to 1/ above and heart failure and alcoholic heart disease or thiamine def PLAN: 1/ transfuse with hgb target 9 g/dl 2/ check hep b and c serologies, hiv, b12, folate 3/ agree with diuresis lasix and aldactone -careful monitoring of lytes 4/ consider echo 5/ B vitamins , DT protocol 6/ egd and colonoscopy once resp status stabilized and completes DT protocol Procedures Date of Service Date of Service: 05/23/23
[2023-05-23 20:06] LABS: Iron 38 mcg/dL (45-160); Percent Iron Saturation 9 % (15-50); Total Iron Binding Capacity 443 mcg/dL (228-428); Unsaturated Iron Binding 405 ug/dL
[2023-05-23 20:26] LABS: Ferritin 17 ng/mL (20-250)
[2023-05-23] MEDS: PHENobarbitaL sodium 130 MG/ML VIAL 260 MG IM (20:43)
[2023-05-23] MEDS: Furosemide 40 MG/4 ML VIAL IVPUSH (20:45)
[2023-05-23] MEDS: Acetaminophen 325 MG TABLET 650 MG PO (20:51)
[2023-05-23] MEDS: traZODone HCL 50 MG TABLET PO (20:51)
[2023-05-24] MEDS: PHENobarbitaL sodium 130 MG/ML VIAL 260 MG IM ×2 (00:58→04:56)
[2023-05-24] MEDS: Heparin Sodium,Porcine 5,000 UNIT/ML VIAL 5000 UNIT SUBCUT ×3 (00:59→15:29)
[2023-05-24 03:34] VITALS: BP 158/76; PULSE 103; RESP 20; TEMP 38.4; O2SAT 97
[2023-05-24 05:30] VITALS: BMI 38.4
[2023-05-24 06:00] VITALS: BMI 38.4
[2023-05-24 06:37] LABS: Influenza A PCR NEGATIVE (Negative); Influenza B PCR NEGATIVE (Negative); Resp Syncy Virus RNA Qual PCR NEGATIVE (Negative); SARS COV2 PCR INHOUSE NEGATIVE (Negative)
[2023-05-24 07:17] VITALS: BP 165/71; PULSE 98; RESP 18; TEMP 37.1; O2SAT 98
[2023-05-24 07:52] LABS: MANUAL DIFF FLAG NO
[2023-05-24 08:06] LABS: Basophils Percent Auto 0.4 % (0-2); Eosinophils Absolute Auto 0.1 X10*3/uL (0.0-0.4); Hematocrit 26.5 % (42.0-52.0); Hemoglobin 8.2 g/dl (14.0-18.0); Imm Gran Abs Auto 0.04 X10*3/uL (0.00-0.03); Imm Gran Pct Auto 0.6 % (0.0-0.4); Lymphocytes Absolute Auto 1.6 X10*3/uL (1.2-4.9); Lymphocytes Percent Auto 22.9 % (20-40); Mean Corpuscular HGB Conc 30.9 g/dl (31.0-36.0); Mean Corpuscular Hemoglobin 23.9 pg (27.0-33.0); Mean Corpuscular Volume 77.3 fL (80.0-98.0); Mean Platelet Volume 10.3 fL (9.4-12.4); Monocytes Absolute Auto 0.7 X10*3/uL (0.1-1.2); Monocytes Percent Auto 9.8 % (2-11); Neutrophils Absolute Auto 4.5 x10*3/uL (2.0-8.3); Neutrophils Percent Auto 65.3 % (45-73); Red Blood Count 3.43 X10*6/uL (4.60-5.80); Red Cell Distribution Width 18.1 % (11.0-16.0); White Blood Count 6.9 X10*3/uL (4.8-10.8)
[2023-05-24 08:31] LABS: Platelet Count 116 X10*3/uL (160-400)
[2023-05-24 08:36] LABS: Alanine Aminotransferase 39 U/L (0-40); Albumin Level 3.6 g/dL (3.5-5.0); Alkaline Phosphatase 126 U/L (39-117); Aspartate Amino Transferase 98 U/L (5-37); Bilirubin Total 1.6 mg/dL (0.0-1.0); Blood Urea Nitrogen 11 mg/dL (9-16); Calcium 8.3 mg/dL (8.4-10.2); Estimated Glomerular Filt Rate > 60; Glucose Random 93 mg/dL (60-115); Magnesium 1.9 mg/dL (1.6-2.6); Total Protein 7.6 g/dL (6.5-8.0)
--- NOTE | 2023-05-24 08:37 | MHC.CM.PN ---
CM met with Patient at bedside, with the assist of a Icing Machine Operator and addressed IMM with him, providing Patient with the original and a copy has been placed on the chart. Patient lives alone in an apartment and he uses a walker to assist with mobility. Patient receives CCA/RN visits and is in the process of obtaining a CCA/MENTAL HEALTH NURSE. Home/resume said services is the goal and CM has initiated and will follow for dc planning. PCP is from [facility] in [place] and Patient's Significant Other/[place] is the HCP.
[2023-05-24 08:47] LABS: Anion Gap 16 (12-20); Carbon Dioxide 26 mmol/L (22-29); Chloride 101 mmol/L (96-108); Potassium 2.9 mmol/L (3.3-5.1); Sodium 140 mmol/L (135-145)
[2023-05-24 08:59] LABS: Folate 11.9 ng/mL (> or = 4.0); Vitamin B12 447 pg/mL (200-900)
[2023-05-24] MEDS: Spironolactone 25 MG TABLET 50 MG PO (09:04)
[2023-05-24] MEDS: 0.9 % Sodium Chloride Flush 3 ML SYRINGE IVFLUSH ×2 (09:04→15:29)
[2023-05-24] MEDS: Acetaminophen 325 MG TABLET 650 MG PO (09:05)
[2023-05-24] MEDS: Omeprazole 20 MG CAPSULE.DR PO (09:05)
[2023-05-24] MEDS: Sertraline HCL 50 MG TABLET PO (09:05)
[2023-05-24] MEDS: Thiamine HCL 100 MG TABLET PO (09:05)
[2023-05-24] MEDS: PHENobarbitaL 15 MG TABLET 45 MG PO ×2 (09:05→20:38)
[2023-05-24] MEDS: Folic Acid 1 MG TABLET PO (09:05)
[2023-05-24] MEDS: Furosemide 40 MG/4 ML VIAL IVPUSH ×2 (09:17→18:47)
[2023-05-24 11:08] VITALS: BP 168/66; PULSE 108; RESP 20; TEMP 37; O2SAT 99
--- NOTE | 2023-05-24 11:41 | P.CONCA_ITS ---
History of Present Illness History of Present Illness Date of Service: 05/24/23 Requesting physician: Jerome Woodard Chief complaint: CHF Narrative: 52-year-old gentleman with background history of alcohol use who is presenting with shortness of breath and significant edema. He has background of liver disease also. Noticed to be significantly volume overloaded and admitted for IV diuretics for congestive heart failure. He has significant peripheral edema. He is hypertensive. Denying any significant chest discomfort but complaining of some atypical pains off and on. Labs, EKG and imaging reviewed. High sensitivity troponin level of 12.3. BNP 182. He is hypokalemic with potassium 2.9 and magnesium is 1.9. Creatinine clearance is 142. PMFSH Past Medical History Medical History Pancreatic lesion Peripheral neuropathy Portal vein thrombosis Recurrent acute pancreatitis Joint pain Insomnia Anxiety Asthma Hypertension Depression Alcoholic fatty liver Alcoholic cirrhosis of liver Alcohol abuse Social History Social History (Updated 05/23/23 @ 18:21 by Kasia Aaron NP) Household Members: None Housing: Apartment Do you presently have visiting nurse or other home services: Yes (2 nurses and in the process of getting a biodiesel product manager. for bp checks and meds) Alcohol intake: current Alcohol intake frequency: 3 or more drinks per day Alcohol type: beer Comment: 6-8 beers a day Patient Tobacco Use Status: Current everyday Tobacco user Tobacco use type: Cigarette Cigarette Packs Per Day: 1 Cigarettes Per Day: 20.0 Years Smoked: 33 Smoked in Last 30 Days: Yes Patient Interested in Nicotine Replacement: No Patient Given Instructions on How to Stop Smoking: No Second Hand Smoke Exposure: No Use of substances other than those prescribed or required for medical reasons: No Currently Displaying Signs/Symptoms of Drug Intoxication Withdrawal: No Have you been hit, kicked, punched, or otherwise hurt by someone within the past year? If so, by whom?: No Do you feel safe in your current relationship?: Yes Is there a partner from a previous relationship who is making you feel unsafe now?: No Are you made to feel afraid or neglected: No Spiritual Healthcare Practices: none Confucianist Healthcare Practices: none Cultural Healthcare Practices: none Advance Directives: No Advance Directives Information Provided: Yes Do you have thoughts of harming others: None Do you have a plan to hurt others: No Plan Recently lost weight without trying: No Nutrition Risks: No Nutritional Risk service: No Meds Allergies Allergy/AdvReac Type Severity Reaction Status Date / Time aspirin Allergy Unknown rash Verified 05/23/23 10:05 Shrimp Flavor Allergy Unknown anaphylaxis Uncoded 05/23/23 10:05 Active Medications: Current Medications Acetaminophen (Acetaminophen 325 Mg Tablet) 650 mg PO Q6H PRN PRN Reason: Pain, Mild (Pain Scale 1-3) Last Admin: 05/24/23 09:05 Dose: 650 mg Albuterol Sulfate (Albuterol Sulfate 90 Mcg 8 Gm Inhaler) 2 puff INHALE Q6H PRN PRN Reason: wheezing Folic Acid (Folic Acid 1 Mg Tablet) 1 mg PO DAILY [facility] Last Admin: 05/24/23 09:05 Dose: 1 mg Furosemide (Furosemide 40 Mg/4 Ml Vial) 40 mg IVPUSH BID@0900,1800 [facility]; Protocol Last Admin: 05/24/23 09:17 Dose: 40 mg Heparin Sodium (Porcine) (Heparin Sodium,Porcine 5,000 Unit/Ml Vial) 5,000 unit SUBCUT Q8H [facility] Last Admin: 05/24/23 09:04 Dose: 5,000 unit Hydroxyzine HCl (Hydroxyzine Hcl 25 Mg Tablet) 25 mg PO BID PRN PRN Reason: Anxiety Omeprazole (Omeprazole 20 Mg Capsule.Dr) 20 mg PO DAILY [facility] Last Admin: 05/24/23 09:05 Dose: 20 mg Ondansetron HCl (Ondansetron Hcl 4 Mg/2 Ml Vial) 4 mg IVPUSH Q8H PRN PRN Reason: Nausea and Vomiting Pharmacy Consult (Consult Rx Etoh Phenob Po Only) 1 each MISCELLANE ONCE PRN; Protocol PRN Reason: Consult order Phenobarbital (Phenobarbital 15 Mg Tablet) 45 mg PO BID [facility]; Protocol Stop: 05/25/23 21:01 Last Admin: 05/24/23 09:05 Dose: 45 mg Phenobarbital (Phenobarbital 30 Mg Tablet) 30 mg PO BID [facility]; Protocol Stop: 05/27/23 21:01 Phenobarbital (Phenobarbital 30 Mg Tablet) 30 mg PO DAILY [facility]; Protocol Stop: 05/29/23 09:01 Sertraline HCl (Sertraline Hcl 50 Mg Tablet) 50 mg PO DAILY [facility] Last Admin: 05/24/23 09:05 Dose: 50 mg Sodium Chloride (0.9 % Sodium Chloride Flush 3 Ml Syringe) 3 ml IVFLUSH QSHIFT [facility] Last Admin: 05/24/23 09:04 Dose: 3 ml Spironolactone (Spironolactone 25 Mg Tablet) 50 mg PO DAILY [facility]; Protocol Last Admin: 05/24/23 09:04 Dose: 50 mg Thiamine HCl (Thiamine Hcl 100 Mg Tablet) 100 mg PO DAILY [facility] Last Admin: 05/24/23 09:05 Dose: 100 mg Trazodone HCl (Trazodone Hcl 50 Mg Tablet) 50 mg PO BEDTIME [facility] Last Admin: 05/23/23 20:51 Dose: 50 mg Home Medications Medication Instructions Recorded Confirmed Last Taken Type albuterol sulfate 90 mcg/actuation 2 puff inhalation Q6H PRN wheezing 05/23/23 05/23/23 Unknown History aerosol inhaler (Ventolin HFA) amlodipine 5 mg tablet 5 mg PO DAILY 05/23/23 05/23/23 Unknown History cholecalciferol (vitamin D3) 25 25 mcg DAILY 05/23/23 05/23/23 Unknown History mcg (1,000 unit) capsule folic acid 1 mg tablet 1 mg PO DAILY 05/23/23 05/23/23 Unknown History furosemide 20 mg tablet 20 mg DAILY 05/23/23 05/23/23 Unknown History hydrochlorothiazide 12.5 mg tablet 12.5 mg PO DAILY 05/23/23 05/23/23 Unknown History hydroxyzine HCl 25 mg tablet 25 mg PO BID PRN Anxiety 05/23/23 05/23/23 Unknown History omeprazole 20 mg capsule,delayed 20 mg DAILY 05/23/23 05/23/23 Unknown History release sertraline 50 mg tablet 50 mg PO DAILY 05/23/23 05/23/23 Unknown History spironolactone 50 mg tablet 50 mg PO DAILY 05/23/23 05/23/23 Unknown History thiamine HCl (vitamin B1) 100 mg 100 mg DAILY 05/23/23 05/23/23 Unknown History tablet trazodone 50 mg tablet 50 mg PO BEDTIME insomnia 05/23/23 05/23/23 Unknown History Physical Exam 2 Vital Signs: Vital Signs: Last Vital Signs Temp 98.6 F 05/24/23 11:08 Pulse 108 H 05/24/23 11:08 Resp 20 05/24/23 11:08 BP 168/66 H 05/24/23 11:08 Pulse Ox 99 05/24/23 11:08 O2 Del Method Room Air 05/24/23 11:08 O2 Flow Rate 3 05/23/23 14:59 BMI result Body Mass Index 38.4 GENERAL APPEARANCE: Obese, short of breath, on supplemental oxygen NECK: no carotid bruit, lasts jugular venous distention. SKIN: no suspicious lesions, warm and dry. HEART: no murmurs, regular rate and rhythm. Tachycardic. LUNGS: clear to auscultation anteriorly. ABDOMEN: soft, nontender. EXTREMITIES: +2 edema. PERIPHERAL PULSES: equal. NEUROLOGIC: No gross deficits, AAO X 3 Objective Labs and Meds 05/24/23 07:08 05/24/23 07:08 Lab results: Laboratory Results - last 24 hr 05/23/23 05/23/23 05/23/23 11:26 12:20 13:15 WBC RBC Hgb Hct MCV MCH MCHC RDW Plt Count MPV Immature Gran % (Auto) Neut % (Auto) Lymph % (Auto) [place] % (Auto) Eos % (Auto) Baso % (Auto) Lymph # (Auto) [place] # (Auto) Eos # (Auto) Baso # (Auto) Abs Immat Gran (auto) Absolute Neuts (auto) Absolute Nucleated RBC Nucleated RBC % (auto) Sodium 139 Potassium 4.3 Chloride 106 Carbon Dioxide 26 Anion Gap 11 L BUN 13 Creatinine 0.78 Estim Creat Clear Calc 148.0 Estimated GFR > 60 Random Glucose 107 Calcium 8.0 L D Magnesium 2.3 Iron 38 L TIBC 443 H % Saturation 9 L Unsat Iron Binding 405 Ferritin 17 L Total Bilirubin 0.9 AST 100 H ALT 43 H Alkaline Phosphatase 118 H Troponin I High Sens 12.3 Total Protein 7.7 Albumin 3.7 Lipase 47 Vitamin B12 Folate Urine Color Yellow Urine Appearance Clear Urine pH 5.5 Ur Specific [place] 1.010 Urine Protein Negative Urine Glucose (UA) Negative Urine Ketones Negative Urine Blood Negative Urine Nitrite Negative Ur Leukocyte Esterase Negative Urine RBC 0-2 Urine WBC 0-5 Ur Squamous Epith Cells 0-2 Urine Bacteria None Seen Hyaline Casts 0-2 Stool Occult Blood NEGATIVE Ethyl Alcohol 277 Influenza Type A (PCR) Influenza Type B (PCR) RSV RNA Qual (PCR) SARS-CoV-2 RNA (RT-PCR) Blood Type Antibody Screen 05/24/23 05/24/23 05:05 07:08 WBC 6.9 RBC 3.43 L Hgb 8.2 L Hct 26.5 L MCV 77.3 L MCH 23.9 L MCHC 30.9 L RDW 18.1 H Plt Count 116 L D MPV 10.3 Immature Gran % (Auto) 0.6 H Neut % (Auto) 65.3 Lymph % (Auto) 22.9 [place] % (Auto) 9.8 Eos % (Auto) 1.0 Baso % (Auto) 0.4 Lymph # (Auto) 1.6 [place] # (Auto) 0.7 Eos # (Auto) 0.1 Baso # (Auto) 0.0 Abs Immat Gran (auto) 0.04 H Absolute Neuts (auto) 4.5 Absolute Nucleated RBC 0.000 Nucleated RBC % (auto) 0.0 Sodium 140 Potassium 2.9 L D Chloride 101 Carbon Dioxide 26 Anion Gap 16 BUN 11 Creatinine 0.78 Estim Creat Clear Calc 142.0 Estimated GFR > 60 Random Glucose 93 Calcium 8.3 L Magnesium 1.9 Iron TIBC % Saturation Unsat Iron Binding Ferritin Total Bilirubin 1.6 H AST 98 H ALT 39 Alkaline Phosphatase 126 H Troponin I High Sens Total Protein 7.6 Albumin 3.6 Lipase Vitamin B12 447 Folate 11.9 Urine Color Urine Appearance Urine pH Ur Specific [place] Urine Protein Urine Glucose (UA) Urine Ketones Urine Blood Urine Nitrite Ur Leukocyte Esterase Urine RBC Urine WBC Ur Squamous Epith Cells Urine Bacteria Hyaline Casts Stool Occult Blood Ethyl Alcohol Influenza Type A (PCR) NEGATIVE Influenza Type B (PCR) NEGATIVE RSV RNA Qual (PCR) NEGATIVE SARS-CoV-2 RNA (RT-PCR) NEGATIVE Blood Type A Positive Antibody Screen NEGATIVE Imaging Radiologist's impression: Impressions Scrotum Ultrasound 05/23/23 12:03 IMPRESSION: 1. Right inguinal hernia containing fat extending to superior scrotum. 2. Small left epididymal head cyst. 3. Both testes are unremarkable. There is normal color flow to testes and epididymis Chest X-Ray 05/23/23 12:30 IMPRESSION: Bilateral perihilar and lower lobe airspace opacities, nonspecific. Differential considerations include infectious, inflammatory and neoplastic processes. Thoracic CT with contrast might be of benefit in better assessing the extent and etiology of the findings. Chest CT 05/23/23 17:07 IMPRESSION: 1. Small right pleural effusion with mild right basilar airspace disease more likely due to atelectasis/consolidation. 2. Nodular configuration to the liver with splenomegaly and recanalization of the umbilical vein suggesting underlying portal hypertension. Abdomen Ultrasound 05/23/23 18:52 FINDINGS/IMPRESSION: Ultrasound examination of the 4 quadrants of the abdomen demonstrates no evidence of ascites. Intra-abdominal organs are not evaluated by this exam. Assessment and Plan (1) Acute exacerbation of CHF (congestive heart failure): Status: Acute Plan 52-year-old gentleman with background of alcoholism presenting with shortness of breath. He is anemic and significantly volume overloaded. There is also some concerns for cirrhosis of liver and GI is involved. Clinically he is volume overloaded and agree with IV Lasix and spironolactone. Monitor potassium and magnesium closely. Keep potassium more than 4 and magnesium more than 2 at all times. We will check echocardiogram to assess LV. It is possible that he has cardiomyopathy due to alcohol use. He has right more than left-sided failure currently with significant edema. With cirrhosis portal hypertension is a possibility and a lot of these patients also developed pulmonary hypertension which can lead to RV dysfunction. In any case we will gather more information with echocardiography. Hydrochlorothiazide should not be resumed. Thank you for allowing me to participate in the care of your patient. Please feel free to contact me if you have any questions. Procedures Date of Service Date of Service: 05/24/23
[2023-05-24] MEDS: Losartan Potassium 25 MG TABLET PO (12:24)
--- NOTE | 2023-05-24 13:17 | HO.PM.IMPN ---
Subjective Subjective Date of Service: 05/24/23 Interval History: Minimal improvement since admission. Continues of bilateral leg pain Review of Systems Denies chest pain Denies shortness of breath Denies nausea vomiting diarrhea Admits to bilateral leg pain worse with ambulation Physical Exam Vital Signs: Vital Signs: Last Vital Signs Temp 98.6 F 05/24/23 11:08 Pulse 108 H 05/24/23 11:08 Resp 20 05/24/23 11:08 BP 168/66 H 05/24/23 11:08 Pulse Ox 99 05/24/23 11:08 O2 Del Method Room Air 05/24/23 11:08 O2 Flow Rate 3 05/23/23 14:59 BMI result Body Mass Index 38.4 Const: Other: Awake alert no acute issues Resp: Other: Essentially clear to auscultations bilaterally. Diminished at bases with scant crackles noted Cardio: Other: No S4; positive S1-S2; no S3 murmurs rubs or gallops GI: Other: Soft nontender nondistended normoactive bowel sounds Neuro: Other: Cranial nerves 2-12 grossly intact as tested motor is 5/5 all extremities sensation isn't Extrem: Other: Bilateral pitting edema Objective Data Active Medications Acetaminophen (Acetaminophen 325 Mg Tablet) 650 mg PO Q6H PRN PRN Reason: Pain, Mild (Pain Scale 1-3) Last Admin: 05/24/23 09:05 Dose: 650 mg Documented By: JAI Albuterol Sulfate (Albuterol Sulfate 90 Mcg 8 Gm Inhaler) 2 puff INHALE Q6H PRN PRN Reason: wheezing Folic Acid (Folic Acid 1 Mg Tablet) 1 mg PO DAILY [facility] Last Admin: 05/24/23 09:05 Dose: 1 mg Documented By: JAI Furosemide (Furosemide 40 Mg/4 Ml Vial) 40 mg IVPUSH BID@0900,1800 [facility]; Protocol Last Admin: 05/24/23 09:17 Dose: 40 mg Documented By: JAI Heparin Sodium (Porcine) (Heparin Sodium,Porcine 5,000 Unit/Ml Vial) 5,000 unit SUBCUT Q8H [facility] Last Admin: 05/24/23 09:04 Dose: 5,000 unit Documented By: JAI Hydroxyzine HCl (Hydroxyzine Hcl 25 Mg Tablet) 25 mg PO BID PRN PRN Reason: Anxiety Losartan Potassium (Losartan Potassium 25 Mg Tablet) 25 mg PO DAILY [facility]; Protocol Last Admin: 05/24/23 12:24 Dose: 25 mg Documented By: JAI Omeprazole (Omeprazole 20 Mg Capsule.Dr) 20 mg PO DAILY [facility] Last Admin: 05/24/23 09:05 Dose: 20 mg Documented By: JAI Ondansetron HCl (Ondansetron Hcl 4 Mg/2 Ml Vial) 4 mg IVPUSH Q8H PRN PRN Reason: Nausea and Vomiting Pharmacy Consult (Consult Rx Etoh Phenob Po Only) 1 each MISCELLANE ONCE PRN; Protocol PRN Reason: Consult order Phenobarbital (Phenobarbital 15 Mg Tablet) 45 mg PO BID [facility]; Protocol Stop: 05/25/23 21:01 Last Admin: 05/24/23 09:05 Dose: 45 mg Documented By: JAI Phenobarbital (Phenobarbital 30 Mg Tablet) 30 mg PO BID [facility]; Protocol Stop: 05/27/23 21:01 Phenobarbital (Phenobarbital 30 Mg Tablet) 30 mg PO DAILY [facility]; Protocol Stop: 05/29/23 09:01 Potassium Chloride (Potassium Chloride Packet 20 Meq Packet) 40 meq PO BID [facility] Stop: 05/25/23 21:01 Sertraline HCl (Sertraline Hcl 50 Mg Tablet) 50 mg PO DAILY [facility] Last Admin: 05/24/23 09:05 Dose: 50 mg Documented By: JAI Sodium Chloride (0.9 % Sodium Chloride Flush 3 Ml [facility]) [facility] Admin: 05/24/23 09:04 Dose: 3 ml Documented By: JAI Spironolactone (Spironolactone 25 Mg Tablet) 50 mg PO DAILY [facility]; Protocol Last Admin: 05/24/23 09:04 Dose: 50 mg Documented By: JAI Thiamine HCl (Thiamine Hcl 100 Mg Tablet) 100 mg PO DAILY [facility] Last Admin: 05/24/23 09:05 Dose: 100 mg Documented By: JAI Trazodone HCl (Trazodone Hcl 50 Mg Tablet) 50 mg PO BEDTIME [facility] Last Admin: 05/23/23 20:51 Dose: 50 mg Documented By: [email or web address] Labs 05/24/23 07:08 05/24/23 07:08 Labs: Laboratory Results - last 24 hr 05/23/23 05/23/23 05/24/23 12:20 13:15 05:05 MCV MCH MCHC RDW Plt Count MPV Immature Gran % (Auto) Neut % (Auto) Lymph % (Auto) [place] % (Auto) Eos % (Auto) Baso % (Auto) Lymph # (Auto) [place] # (Auto) Eos # (Auto) Baso # (Auto) Abs Immat Gran (auto) Absolute Neuts (auto) Absolute Nucleated RBC Nucleated RBC % (auto) Anion Gap Estim Creat Clear Calc Estimated GFR Random Glucose Calcium Magnesium Iron 38 L TIBC 443 H % Saturation 9 L Unsat Iron Binding 405 Ferritin 17 L Total Bilirubin AST ALT Alkaline Phosphatase Total Protein Albumin Vitamin B12 Folate Stool Occult Blood NEGATIVE Ethyl Alcohol 277 Influenza Type A (PCR) NEGATIVE Influenza Type B (PCR) NEGATIVE RSV RNA Qual (PCR) NEGATIVE SARS-CoV-2 RNA (RT-PCR) NEGATIVE Blood Type Antibody Screen 05/24/23 07:08 MCV 77.3 L MCH 23.9 L MCHC 30.9 L RDW 18.1 H Plt Count 116 L D MPV 10.3 Immature Gran % (Auto) 0.6 H Neut % (Auto) 65.3 Lymph % (Auto) 22.9 [place] % (Auto) 9.8 Eos % (Auto) 1.0 Baso % (Auto) 0.4 Lymph # (Auto) 1.6 [place] # (Auto) 0.7 Eos # (Auto) 0.1 Baso # (Auto) 0.0 Abs Immat Gran (auto) 0.04 H Absolute Neuts (auto) 4.5 Absolute Nucleated RBC 0.000 Nucleated RBC % (auto) 0.0 Anion Gap 16 Estim Creat Clear Calc 142.0 Estimated GFR > 60 Random Glucose 93 Calcium 8.3 L Magnesium 1.9 Iron TIBC % Saturation Unsat Iron Binding Ferritin Total Bilirubin 1.6 H AST 98 H ALT 39 Alkaline Phosphatase 126 H Total Protein 7.6 Albumin 3.6 Vitamin B12 447 Folate 11.9 Stool Occult Blood Ethyl Alcohol Influenza Type A (PCR) Influenza Type B (PCR) RSV RNA Qual (PCR) SARS-CoV-2 RNA (RT-PCR) Blood Type A Positive Antibody Screen NEGATIVE Assessment and Plan (1) Acute exacerbation of CHF (congestive heart failure): Status: Acute Assessment and Plan: 52-year-old man admitted with increased lower extremity edema, scrotal edema with history of alcohol abuse and liver cirrhosis;responding to aggressive diuresis 1Acute CHF, Unspecified;echo pending -5 L negative since admission -IV Lasix 40 mg b.i.d. -continue Aldactone 50 mg daily -aggressive repletion of potassium and magnesium -follow renals/divalent 2.Liver cirrhosis -continue spironolactone -no evidence of ultrasound on abdominal ultrasound -follow liver function tests 4.Chronic alcohol abuse -for no seizures noted -phenobarbitol protocol 5.COPD/asthma No exacerbation Continue albuterol as needed 6.Hypertension -acceptable control -add back therapies when appropriate heparin Full code Patient requires ongoing hospitalization for treatment of congestive heart failure requiring IV Lasix, specialty consultation and echocardiogram cannot be done at a lesser acute setting as patient would decompensate quickly (2) Anemia: Status: Acute Quality Stroke Does the patient have a stroke diagnosis?: No VTE Prior VTE?: No VTE Risk Level:: Medical - moderate - high VTE Device Contraindication: Treatment Not Indicated VTE Drug Contraindication: N/A - Med Ordered
[2023-05-24] MEDS: Potassium Chloride Packet 20 MEQ PACKET 40 MEQ PO ×2 (14:23→20:39)
[2023-05-24 15:13] VITALS: BP 160/68; PULSE 89; RESP 18; TEMP 37.1; O2SAT 99
[2023-05-24 20:00] VITALS: BP 138/62; PULSE 92; RESP 18; TEMP 37.1; O2SAT 98
[2023-05-24] MEDS: traZODone HCL 50 MG TABLET PO (20:39)
[2023-05-25] VITALS (7 sets, daily range): BP systolic 116–148; BP diastolic 46–70; PULSE 90–102; RESP 18–21; TEMP 37–37.7; O2SAT 97–99; BMI 37.6
[2023-05-25] MEDS: Heparin Sodium,Porcine 5,000 UNIT/ML VIAL 5000 UNIT SUBCUT ×4 (00:07→23:23)
[2023-05-25] MEDS: 0.9 % Sodium Chloride Flush 3 ML SYRINGE IVFLUSH ×4 (00:07→19:42)
[2023-05-25 05:49] LABS: MANUAL DIFF FLAG NO
[2023-05-25 05:55] LABS: Basophils Percent Auto 0.4 % (0-2); Eosinophils Absolute Auto 0.1 X10*3/uL (0.0-0.4); Eosinophils Percent Auto 2.2 % (0-4); Hematocrit 27.4 % (42.0-52.0); Hemoglobin 8.2 g/dl (14.0-18.0); Imm Gran Abs Auto 0.01 X10*3/uL (0.00-0.03); Imm Gran Pct Auto 0.2 % (0.0-0.4); Lymphocytes Absolute Auto 1.3 X10*3/uL (1.2-4.9); Lymphocytes Percent Auto 24.6 % (20-40); Mean Corpuscular HGB Conc 29.9 g/dl (31.0-36.0); Mean Corpuscular Hemoglobin 23.4 pg (27.0-33.0); Mean Corpuscular Volume 78.3 fL (80.0-98.0); Mean Platelet Volume 10.3 fL (9.4-12.4); Monocytes Absolute Auto 0.6 X10*3/uL (0.1-1.2); Monocytes Percent Auto 10.6 % (2-11); Neutrophils Absolute Auto 3.4 x10*3/uL (2.0-8.3); Red Cell Distribution Width 17.8 % (11.0-16.0); White Blood Count 5.4 X10*3/uL (4.8-10.8)
[2023-05-25 05:59] LABS: Platelet Count 95 X10*3/uL (160-400)
[2023-05-25 06:10] LABS: Alanine Aminotransferase 30 U/L (0-40); Albumin Level 3.3 g/dL (3.5-5.0); Alkaline Phosphatase 112 U/L (39-117); Anion Gap 12 (12-20); Aspartate Amino Transferase 62 U/L (5-37); Bilirubin Total 1.6 mg/dL (0.0-1.0); Blood Urea Nitrogen 12 mg/dL (9-16); Calcium 8.3 mg/dL (8.4-10.2); Carbon Dioxide 23 mmol/L (22-29); Chloride 104 mmol/L (96-108); Estimated Glomerular Filt Rate > 60; Glucose Fasting 97 mg/dL (60-99); Potassium 3.4 mmol/L (3.3-5.1); Sodium 136 mmol/L (135-145); Total Protein 7.1 g/dL (6.5-8.0)
--- NOTE | 2023-05-25 07:00 | CA_ITS ---
Transthoracic Echocardiogram Patient (Last, First, Middle): José Manuel Vegas G Gender: Male Date of : 1970 Age: 52 Procedure Date: 05/25/2023 Procedure Type: Transthoracic Echocardiogram Location: [facility] [place] Height: 172. cm Weight: 115.21 kg BSA: 2.26 m2 Heart Rate: 92 bpm BP: 117 / 46 mmHg Wire Spinner: JESS Referring MD: Freddie Buckley MD Symptoms: CHF Study Quality: Adequate ECG Rhythm: Sinus Conclusions: - Mildly increased left ventricular cavity size. There is mildly increased left ventricular wall thickness. The left ventricular systolic function is normal. The visually estimated ejection fraction is between 55-60%. - Elevated filling pressures. - Mildly increased right ventricular cavity size. There is normal right ventricular systolic function. - There is a normal trileaflet aortic valve. Elevated gradients due to anemia. - There is mild dilatation of the sinuses of Valsalva measuring 3.80 cm and mild dilatation of the ascending aorta measuring 3.60 cm. Findings Procedure Information Contrast agent, definity, is being given per protocol with complications as noted. Left Ventricle Mildly increased left ventricular cavity size. There is mildly increased left ventricular wall thickness. The left ventricular systolic function is normal. The visually estimated ejection fraction is between 55-60%. There is no evidence of regional wall motion abnormalities. Abnormal diastolic function is noted. Spectral Doppler is indicative of a pseudonormal filling pattern. Elevated filling pressures. Right Ventricle Mildly increased right ventricular cavity size. There is normal right ventricular systolic function. Atria The left atrium is normal in size. The right atrium is normal in size. Aortic Valve There is a normal trileaflet aortic valve. There is no aortic valve stenosis. There is no aortic valve regurgitation. Mitral Valve The mitral valve appears normal. There is trace mitral valve regurgitation. There is no mitral valve stenosis. Pulmonic Valve The pulmonic valve is likely normal. Tricuspid Valve Normal tricuspid valve structure and function. There is no tricuspid valve regurgitation. Tricuspid regurgitation envelope is inadequate for calculation of right ventricular systolic pressure. Normal right atrial pressure. Great Vessels There is mild dilatation of the sinuses of Valsalva measuring 3.80 cm and mild dilatation of the ascending aorta measuring 3.60 cm. The visualized portions of the pulmonary artery and branches are normal. Venous The inferior vena cava is normal in size and collapses greater than 50% with inspiration. Pericardium/Pleural There is no evidence of pericardial effusion. Prior Study Comparison No prior study available for comparison. Measurements 2D Linear Measurements IVSd: 1.07 0.6-0.9/0.6-1.0 cm LVIDd: 6.00 3.9-5.3/4.2-5.9 cm LVIDd Index: 2.65 2.4-3.2/2.2-3.1 cm/m2 LVIDs: 3.78 2.0-3.6 cm LVPWd: 1.20 0.7-1.1 cm LA Diam: 4.40 2.7-3.8/3.0-4.0 cm LAIDs Index: 1.95 1.5-2.3 cm/m2 LV Mass: 363.59 67-162/88-224 g LV Mass Index: 160.88 43-95/49-115 g/m2 LVOT Diam: 2.10 3.0+(-)1.3 cm 2D Systolic Function EF 4C: 62.40 >55% EF 2C: 55.80 >55% EF BiP: 59.10 >55% Mitral Valve MV Pk E: 1.13 MV PK A: 1.18 MV Decel Time: 195.00 E/A: 1.00 E'Lateral: 6.96 E'Medial: 7.29 E/E' Med: 15.50 E/E' Lat: 16.20 PHT: 57.00 MVA PHT: 3.86 Decel [place]: 5.78 Aortic Valve AoV Pk Edward: 2.27 AoV Mn Edward: 1.64 AoV VTI: 0.42 AoV Pk Grad: 21.00 Aov Mn Grad: 12.00 SEAN Cont.VTI: 2.52 LVOT LVOT Pk Edward: 1.67 LVOT Mn Edward: 1.11 LVOT VTI: 0.31 LVOT Pk Grad: 11.00 LVOT Mn Grad: 6.00 LVOT Diam: 2.10 LVOT Area: 3.46 Diastolic Function MV Pk E: 1.13 MV Pk A: 1.18 E/A: 1.00 E'Medial: 7.29 E/E' Med: 15.50 E' Laterial: 6.96 E/E' Lat: 16.20 Right Ventricle TAPSE (mm): 25.30 TVS' Edward: 14.40 Great Vessels Aorta Sinus of Valsalva: 3.80 2.0-3.5 cm Ao Asc: 3.60 2.1-3.4 cm Pulmonary Valve PV Pk Edward: 1.41 Peak PV Grad: 8.00 Updated in Other Vendor System with Status of Final Freddie Buckley MD electronically signed on 05/25/2023 5:05:25 PM with status of Final
[2023-05-25] MEDS: PHENobarbitaL 15 MG TABLET 45 MG PO ×2 (08:19→19:41)
[2023-05-25] MEDS: Thiamine HCL 100 MG TABLET PO (08:19)
[2023-05-25] MEDS: Furosemide 40 MG/4 ML VIAL IVPUSH ×2 (08:19→16:55)
[2023-05-25] MEDS: Omeprazole 20 MG CAPSULE.DR PO (08:19)
[2023-05-25] MEDS: Losartan Potassium 25 MG TABLET PO (08:19)
[2023-05-25] MEDS: Spironolactone 25 MG TABLET 50 MG PO (08:20)
[2023-05-25] MEDS: Sertraline HCL 50 MG TABLET PO (08:20)
[2023-05-25] MEDS: Potassium Chloride Packet 20 MEQ PACKET 40 MEQ PO ×2 (08:20→19:41)
[2023-05-25] MEDS: Folic Acid 1 MG TABLET PO (08:20)
--- NOTE | 2023-05-25 10:17 | PM.PNCARD ---
Subjective Subjective Date of Service: 05/25/23 Interval history: Seen and examined at bedside. Feeling better. Still volume overloaded. Labs reviewed. Physical Exam Vital Signs: Last Vital Signs Temp 98.7 F 05/25/23 07:07 Pulse 94 05/25/23 07:07 Resp 20 05/25/23 07:07 BP 117/46 L 05/25/23 07:07 Pulse Ox 97 05/25/23 07:07 O2 Del Method Room Air 05/25/23 07:07 O2 Flow Rate 3 05/23/23 14:59 BMI result Body Mass Index 37.6 GENERAL APPEARANCE: Obese, in no distress. NECK: no carotid bruit, + jugular venous distention. SKIN: no suspicious lesions, warm and dry. HEART: no murmurs, regular rate and rhythm. LUNGS: clear to auscultation anteriorly. ABDOMEN: soft, nontender. EXTREMITIES: +2 edema ankle to mid leg. PERIPHERAL PULSES: equal. NEUROLOGIC: No gross deficits, AAO X 3 Objective Labs and Meds 05/25/23 05:41 05/25/23 05:41 Lab results: Laboratory Results - last 24 hr 05/25/23 05:41 WBC 5.4 RBC 3.50 L Hgb 8.2 L Hct 27.4 L MCV 78.3 L MCH 23.4 L MCHC 29.9 L RDW 17.8 H Plt Count 95 L MPV 10.3 Immature Gran % (Auto) 0.2 Neut % (Auto) 62.0 Lymph % (Auto) 24.6 [place] % (Auto) 10.6 Eos % (Auto) 2.2 Baso % (Auto) 0.4 Lymph # (Auto) 1.3 [place] # (Auto) 0.6 Eos # (Auto) 0.1 Baso # (Auto) 0.0 Abs Immat Gran (auto) 0.01 Absolute Neuts (auto) 3.4 Absolute Nucleated RBC 0.000 Nucleated RBC % (auto) 0.0 Sodium 136 Potassium 3.4 Chloride 104 Carbon Dioxide 23 Anion Gap 12 BUN 12 Creatinine 0.74 Estim Creat Clear Calc 148.0 Estimated GFR > 60 Fasting Glucose 97 Calcium 8.3 L Total Bilirubin 1.6 H AST 62 H ALT 30 Alkaline Phosphatase 112 Total Protein 7.1 Albumin 3.3 L Progress Note: A&P Assessment and plan (1) Acute exacerbation of CHF (congestive heart failure): Status: Acute Plan 52-year-old gentleman presenting with anemia and congestive heart failure. He has background of alcohol use. Clinically improving with diuretics at this point. Continue IV Lasix along with spironolactone. Losartan 25 mg daily. Would not titrate dose further. No beta-maria r for now. Check echocardiogram to assess LV function. If transfusion is a planned then he may be able to tolerated now. Thank you for allowing me to participate in the care of your patient. Please feel free to contact me if you have any questions. Time Spent With Patient Time: Total time managing care of this patient today ____ minutes. Progress Note: Quality Stroke Does the patient have a stroke diagnosis?: No Procedures Date of Service Date of Service: 05/25/23
--- NOTE | 2023-05-25 13:04 | P.PNIM_ITS ---
Subjective Subjective Date of Service: 05/25/23 Interval History: seen and examined this morning history obtained with assistance of bill adjuster follow up for CHF leg swelling improving, no sob Review of Systems Review of Systems: Yes all other systems are reviewed and are negative Constitutional Constitutional: Denies chills and Denies fever(s) Cardiovascular Cardiovascular: Denies chest pain and Denies palpitations Gastrointestinal Gastrointestinal: Denies abdominal pain, Denies nausea and Denies vomiting Endocrine Endocrine: Denies palpitations Physical Exam 2 Vital Signs: Vital Signs: Last Vital Signs Temp 98.8 F 05/25/23 11:03 Pulse 91 05/25/23 11:03 Resp 20 05/25/23 11:03 BP 147/70 H 05/25/23 11:03 Pulse Ox 99 05/25/23 11:03 O2 Del Method Room Air 05/25/23 11:03 O2 Flow Rate 3 05/23/23 14:59 BMI result Body Mass Index 37.6 Const: General: cooperative, comfortable, no acute distress, alert and awake Nutritional Appearance: overweight Orientation/consciousness: patient oriented x3 Resp: Effort & Inspection: normal respiratory effort, able to speak in complete sentences, no respiratory distress and no use of accessory muscles A uscultation: clear to auscultation bilaterally Cardio: Jugular venous distension: JVD Rate: regular rate GI: Inspection: No distended Palpation (GI): Soft to palpation Neuro: General: patient oriented x3 and moves all extremities Extrem: Other: b/l lower extremity edema Objective Data Active Medications Acetaminophen (Acetaminophen 325 Mg Tablet) 650 mg PO Q6H PRN PRN Reason: Pain, Mild (Pain Scale 1-3) Last Admin: 05/24/23 09:05 Dose: 650 mg Documented By: JAI Albuterol Sulfate (Albuterol Sulfate 90 Mcg 8 Gm Inhaler) 2 puff INHALE Q6H PRN PRN Reason: wheezing Folic Acid (Folic Acid 1 Mg Tablet) 1 mg PO DAILY [facility] Last Admin: 05/25/23 08:20 Dose: 1 mg Documented By: LAURI Furosemide (Furosemide 40 Mg/4 Ml Vial) 40 mg IVPUSH BID@0900,1800 [facility]; Protocol Last Admin: 05/25/23 08:19 Dose: 40 mg Documented By: LAURI Heparin Sodium (Porcine) (Heparin Sodium,Porcine 5,000 Unit/Ml Vial) 5,000 unit SUBCUT Q8H [facility] Last Admin: 05/25/23 08:19 Dose: 5,000 unit Documented By: LAURI Hydroxyzine HCl (Hydroxyzine Hcl 25 Mg Tablet) 25 mg PO BID PRN PRN Reason: Anxiety Losartan Potassium (Losartan Potassium 25 Mg Tablet) 25 mg PO DAILY [facility]; Protocol Last Admin: 05/25/23 08:19 Dose: 25 mg Documented By: LAURI Omeprazole (Omeprazole 20 Mg Capsule.Dr) 20 mg PO DAILY [facility] Last Admin: 05/25/23 08:19 Dose: 20 mg Documented By: LAURI Ondansetron HCl (Ondansetron Hcl 4 Mg/2 Ml Vial) 4 mg IVPUSH Q8H PRN PRN Reason: Nausea and Vomiting Pharmacy Consult (Consult Rx Etoh Phenob Po Only) 1 each MISCELLANE ONCE PRN; Protocol PRN Reason: Consult order Phenobarbital (Phenobarbital 15 Mg Tablet) 45 mg PO BID [facility]; Protocol Stop: 05/25/23 21:01 Last Admin: 05/25/23 08:19 Dose: 45 mg Documented By: LAURI Phenobarbital (Phenobarbital 30 Mg Tablet) 30 mg PO BID [facility]; Protocol Stop: 05/27/23 21:01 Phenobarbital (Phenobarbital 30 Mg Tablet) 30 mg PO DAILY [facility]; Protocol Stop: 05/29/23 09:01 Potassium Chloride (Potassium Chloride Packet 20 Meq Packet) 40 meq PO BID [facility] Stop: 05/25/23 21:01 Last Admin: 05/25/23 08:20 Dose: 40 meq Documented By: LAURI Sertraline HCl (Sertraline Hcl 50 Mg Tablet) 50 mg PO DAILY [facility] Last Admin: 05/25/23 08:20 Dose: 50 mg Documented By: LAURI Sodium Chloride (0.9 % Sodium Chloride Flush 3 Ml Syringe) [facility] Last Admin: 05/25/23 08:20 Dose: 3 ml Documented By: LAURI Spironolactone (Spironolactone 25 Mg Tablet) 50 mg PO DAILY [facility]; Protocol Last Admin: 05/25/23 08:20 Dose: 50 mg Documented By: LAURI Thiamine HCl (Thiamine Hcl 100 Mg Tablet) 100 mg PO DAILY [facility] Last Admin: 12/14/23 08:19 Dose: 100 mg Documented By: FOGARTB Trazodone HCl (Trazodone Hcl 50 Mg Tablet) 50 mg PO BEDTIME [facility] Last Admin: 05/24/23 20:39 Dose: 50 mg Documented By: ERNESTINA Labs 05/25/23 05:41 05/25/23 05:41 Labs: Laboratory Results - last 24 hr 05/25/23 05:41 MCV 78.3 L MCH 23.4 L MCHC 29.9 L RDW 17.8 H Plt Count 95 L MPV 10.3 Immature Gran % (Auto) 0.2 Neut % (Auto) 62.0 Lymph % (Auto) 24.6 [place] % (Auto) 10.6 Eos % (Auto) 2.2 Baso % (Auto) 0.4 Lymph # (Auto) 1.3 [place] # (Auto) 0.6 Eos # (Auto) 0.1 Baso # (Auto) 0.0 Abs Immat Gran (auto) 0.01 Absolute Neuts (auto) 3.4 Absolute Nucleated RBC 0.000 Nucleated RBC % (auto) 0.0 Anion Gap 12 Estim Creat Clear Calc 148.0 Estimated GFR > 60 Fasting Glucose 97 Calcium 8.3 L Total Bilirubin 1.6 H AST 62 H ALT 30 Alkaline Phosphatase 112 Total Protein 7.1 Albumin 3.3 L Assessment and Plan (1) Acute exacerbation of CHF (congestive heart failure): Status: Acute Assessment and Plan: This is a 52-year-old man admitted with increased lower extremity edema, scrotal edema with history of alcohol abuse and liver cirrhosis Acute respiratory failure due to CHF exacerbation weaned off oxygen and on room air Acute CHF, Unspecified ;echo pending - nearly 10L negative since admission -continue IV Lasix 40 mg b.i.d. -continue Aldactone 50 mg daily -aggressive repletion of potassium and magnesium as needed, follow BMP daily Liver cirrhosis -continue spironolactone, IV lasix (on po at baseline) -no evidence of ascites on abdominal ultrasound -follow liver function tests Thrombocytopenia r/t etoh follow CBC anemia b12, folate wnl no evidence of blood loss avoid blood transfusion due to fluid overload will consider iron transfusion follow CBC alcohol use disorder continue thiamine/folic acid continue phenobarbitol protocol addiction medicine consult pending - pt says he has been gradually decreasing his alcohol intake over the past few months COPD/asthma No exacerbation Continue albuterol as needed Hypertension started on loartan continue aldactone HCTZ, norvasc on hold dvt ppx - heparin Full code attending - Dr. Chaney Patient requires ongoing hospitalization for treatment of congestive heart failure requiring IV Lasix, specialty consultation and echocardiogram cannot be done at a lesser acute setting as patient would decompensate quickly Quality Stroke Does the patient have a stroke diagnosis?: No VTE Prior VTE?: No VTE Risk Level:: Medical - moderate - high VTE Device Contraindication: Treatment Not Indicated VTE Drug Contraindication: N/A - Med Ordered
--- NOTE | 2023-05-25 16:12 | MHC.RECOVRN ---
Met with pt and pts partner in 450, along with automatic machine attendant, after consult placed to Addiction Medicine for alcohol use. Pt had presented to the ED with bilateral testicular swelling along with bilateral lower extremity swelling. Pt had reported a hx of liver cirrhosis, HTN, and alcohol use. Upon evaluation, pt admitted for acute exacerbation of CHF. Pt sitting in bed, awake, alert, easily engages in conversation. Pt reports alcohol use, 6-8 24 ounce beers daily x 2 years. Pt reports prior to 2 years ago, drinking 12-18 beers daily. Pt reports hx 4-5 medical admissions for alcohol withdrawal, typically goes to [facility] or [facility]. Pt reports 2 months ago an admission to [facility] but ended up being transferred to [facility] and admitted x 4 days. Pt reports hx heroin and cocaine use, over 10 years ago. Pt reports having been prescribed naltrexone and acamprosate from PCP and hospital respectively, is not currently taking either medication. Pt reports he took naltrexone x 1 week and then discontinued. Discussed HAYLEY and importance of outpatient follow up. Pt would like to restart HAYLEY and follow up at the [facility]. Appt made for 06/02/23 at 1:15PM. Pt provided with written information, denies questions or concerns at this time. Discussed with Cindy Macedo APRN.
[2023-05-25] MEDS: traZODone HCL 50 MG TABLET PO (19:41)
[2023-05-26 03:09] VITALS: BP 150/71; PULSE 89; RESP 20; TEMP 37.3; O2SAT 95
[2023-05-26 05:09] VITALS: BMI 37.9
[2023-05-26 06:39] LABS: MANUAL DIFF FLAG NO
[2023-05-26 06:52] LABS: Basophils Percent Auto 0.4 % (0-2); Eosinophils Absolute Auto 0.2 X10*3/uL (0.0-0.4); Eosinophils Percent Auto 2.2 % (0-4); Hematocrit 29.5 % (42.0-52.0); Hemoglobin 8.9 g/dl (14.0-18.0); Imm Gran Abs Auto 0.05 X10*3/uL (0.00-0.03); Imm Gran Pct Auto 0.7 % (0.0-0.4); Lymphocytes Absolute Auto 1.8 X10*3/uL (1.2-4.9); Mean Corpuscular HGB Conc 30.2 g/dl (31.0-36.0); Mean Corpuscular Hemoglobin 23.9 pg (27.0-33.0); Mean Corpuscular Volume 79.1 fL (80.0-98.0); Mean Platelet Volume 10.4 fL (9.4-12.4); Monocytes Absolute Auto 0.8 X10*3/uL (0.1-1.2); Monocytes Percent Auto 10.1 % (2-11); Neutrophils Absolute Auto 4.8 x10*3/uL (2.0-8.3); Neutrophils Percent Auto 62.6 % (45-73); Platelet Count 121 X10*3/uL (160-400); Red Blood Count 3.73 X10*6/uL (4.60-5.80); Red Cell Distribution Width 18.2 % (11.0-16.0); White Blood Count 7.6 X10*3/uL (4.8-10.8)
[2023-05-26 07:05] VITALS: BP 131/60; PULSE 91; RESP 18; TEMP 36.6; O2SAT 100
[2023-05-26 07:15] LABS: Anion Gap 11 (12-20); Blood Urea Nitrogen 16 mg/dL (9-16); Calcium 8.8 mg/dL (8.4-10.2); Carbon Dioxide 26 mmol/L (22-29); Chloride 104 mmol/L (96-108); Creatinine Clr Calc Pharmacy 135.7; Estimated Glomerular Filt Rate > 60; Glucose Random 101 mg/dL (60-115); Magnesium 2.1 mg/dL (1.6-2.6); Potassium 3.6 mmol/L (3.3-5.1); Sodium 137 mmol/L (135-145)
[2023-05-26 07:22] LABS: HBS Num1 0.64 mIU/mL (0-7.99); HBc Num1 0.14 S/CO (0.00-0.79); HBsAGNum1 0.27 S/CO (0.00-0.99); HIV AB/AG Nonreactive (Nonreactive); HIV Num 1 0.05 S/CO (0.00-0.99); Hepatitis B Core Antibody Nonreactive (Nonreactive); Hepatitis B Surface Antigen Negative (Negative); ~HepC Num1 0.25 S/CO (0.00-0.79); ~Hepatitis B Surface Antibody NONREACTIVE (Nonreactive); ~Hepatitis C Antibody Nonreactive (Nonreactive)
[2023-05-26] MEDS: Heparin Sodium,Porcine 5,000 UNIT/ML VIAL 5000 UNIT SUBCUT ×3 (08:44→23:16)
[2023-05-26] MEDS: Furosemide 40 MG/4 ML VIAL IVPUSH ×2 (08:44→17:11)
[2023-05-26] MEDS: 0.9 % Sodium Chloride Flush 3 ML SYRINGE IVFLUSH ×3 (08:45→23:17)
[2023-05-26] MEDS: PHENobarbitaL 30 MG TABLET PO ×2 (08:54→20:20)
[2023-05-26] MEDS: Spironolactone 25 MG TABLET 50 MG PO (08:54)
[2023-05-26] MEDS: Omeprazole 20 MG CAPSULE.DR PO (08:54)
[2023-05-26] MEDS: Losartan Potassium 25 MG TABLET PO (08:55)
[2023-05-26] MEDS: Thiamine HCL 100 MG TABLET PO (08:55)
[2023-05-26] MEDS: Folic Acid 1 MG TABLET PO (08:55)
[2023-05-26] MEDS: Sertraline HCL 50 MG TABLET PO (08:55)
[2023-05-26 11:09] VITALS: BP 106/60; PULSE 89; RESP 18; TEMP 36.2; O2SAT 98
--- NOTE | 2023-05-26 11:35 | P.PNCA_ITS ---
Subjective Subjective Date of Service: 05/26/23 Interval history: Seen examined at bedside. Feeling better. Still has peripheral edema but much improved. Physical Exam Vital Signs: Last Vital Signs Temp 97.1 F 05/26/23 11:09 Pulse 89 05/26/23 11:09 Resp 18 05/26/23 11:09 BP 106/60 05/26/23 11:09 Pulse Ox 98 05/26/23 11:09 O2 Del Method Room Air 05/26/23 11:09 O2 Flow Rate 3 05/23/23 14:59 BMI result Body Mass Index 37.9 GENERAL APPEARANCE: Obese, in no distress. NECK: no carotid bruit, mild jugular venous distention. SKIN: no suspicious lesions, warm and dry. HEART: no murmurs, regular rate and rhythm. LUNGS: clear to auscultation anteriorly. ABDOMEN: soft, nontender. EXTREMITIES: +1 edema ankle. PERIPHERAL PULSES: equal. NEUROLOGIC: No gross deficits, AAO X 3 Objective Labs and Meds 05/26/23 06:25 05/26/23 06:25 Lab results: Laboratory Results - last 24 hr 05/25/23 05/26/23 13:06 06:25 WBC 7.6 RBC 3.73 L Hgb 8.9 L Hct 29.5 L MCV 79.1 L MCH 23.9 L MCHC 30.2 L RDW 18.2 H Plt Count 121 L D MPV 10.4 Immature Gran % (Auto) 0.7 H Neut % (Auto) 62.6 Lymph % (Auto) 24.0 [place] % (Auto) 10.1 Eos % (Auto) 2.2 Baso % (Auto) 0.4 Lymph # (Auto) 1.8 [place] # (Auto) 0.8 Eos # (Auto) 0.2 Baso # (Auto) 0.0 Abs Immat Gran (auto) 0.05 H Absolute Neuts (auto) 4.8 Absolute Nucleated RBC 0.000 Nucleated RBC % (auto) 0.0 Sodium 137 Potassium 3.6 Chloride 104 Carbon Dioxide 26 Anion Gap 11 L BUN 16 Creatinine 0.81 Estim Creat Clear Calc 135.7 Estimated GFR > 60 Random Glucose 101 Calcium 8.8 D Magnesium 2.1 Hep Bs Antigen Negative Hep Bs Antibody NONREACTIVE Hep B Core Total Ab Nonreactive Hepatitis C Ab (EIA) Nonreactive HIV 1&2 Ab/P24 Ag 4thGn Nonreactive Progress Note: A&P Assessment and plan (1) Acute exacerbation of CHF (congestive heart failure): Status: Acute Plan [age] year gentleman presenting with congestive heart failure anemia on background of alcohol use. Echocardiography has shown mild dilation of the LV but overall LV function is normal. He had elevated filling pressures. Diuresed and improving. Continue IV diuretics today and can transition to 40 mg p.o. Lasix from tomorrow. The hydrochlorothiazide should not be resumed at discharge. He should stay on spironolactone 50 mg and losartan. Complete abstinence from alcohol. Thank you for allowing me to participate in the care of your patient. Please feel free to contact me if you have any questions. Time Spent With Patient Time: Total time managing care of this patient today ____ minutes. Progress Note: Quality Stroke Does the patient have a stroke diagnosis?: No Procedures Date of Service Date of Service: 05/26/23
[2023-05-26 15:50] VITALS: BP 139/52; PULSE 85; RESP 20; TEMP 36.5; O2SAT 100
--- NOTE | 2023-05-26 16:23 | P.PNIM_ITS ---
Subjective Subjective Date of Service: 05/26/23 Interval History: seen and examined this morning follow up for CHF improving, still with leg edema, no sob Review of Systems Review of Systems: Yes all other systems are reviewed and are negative Constitutional Constitutional: Denies chills and Denies fever(s) Cardiovascular Cardiovascular: Denies chest pain, Denies palpitations and Denies dyspnea Respiratory Respiratory: Denies cough and Denies dyspnea Gastrointestinal Gastrointestinal: Denies abdominal pain Endocrine Endocrine: Denies palpitations Physical Exam 2 Vital Signs: Vital Signs: Last Vital Signs Temp 97.7 F 05/26/23 15:50 Pulse 85 05/26/23 15:50 Resp 20 05/26/23 15:50 BP 139/52 L 05/26/23 15:50 Pulse Ox 100 05/26/23 15:50 O2 Del Method Room Air 05/26/23 15:50 O2 Flow Rate 3 05/23/23 14:59 BMI result Body Mass Index 37.9 Const: General: cooperative, comfortable, no acute distress, alert and awake Nutritional Appearance: overweight Orientation/consciousness: patient oriented x3 Resp: Effort & Inspection: normal respiratory effort, able to speak in complete sentences, no respiratory distress and no use of accessory muscles A uscultation: clear to auscultation bilaterally Cardio: Jugular venous distension: JVD (mild) Rate: regular rate GI: Inspection: No distended Palpation (GI): Soft to palpation Neuro: General: patient oriented x3 and moves all extremities Extrem: Other: b/l pedal edema, improving Objective Data Active Medications Acetaminophen (Acetaminophen 325 Mg Tablet) 650 mg PO Q6H PRN PRN Reason: Pain, Mild (Pain Scale 1-3) Last Admin: 05/24/23 09:05 Dose: 650 mg Documented By: JAI Albuterol Sulfate (Albuterol Sulfate 90 Mcg 8 Gm Inhaler) 2 puff INHALE Q6H PRN PRN Reason: wheezing Folic Acid (Folic Acid 1 Mg Tablet) 1 mg PO DAILY [facility] Last Admin: 05/26/23 08:55 Dose: 1 mg Documented By: ISAIAS Furosemide (Furosemide 40 Mg/4 Ml Vial) 40 mg IVPUSH BID@0900,1800 [facility]; Protocol Last Admin: 05/26/23 08:44 Dose: 40 mg Documented By: ISAIAS Heparin Sodium (Porcine) (Heparin Sodium,Porcine 5,000 Unit/Ml Vial) 5,000 unit SUBCUT Q8H [facility] Last Admin: 05/26/23 08:44 Dose: 5,000 unit Documented By: ISAIAS Hydroxyzine HCl (Hydroxyzine Hcl 25 Mg Tablet) 25 mg PO BID PRN PRN Reason: Anxiety Losartan Potassium (Losartan Potassium 25 Mg Tablet) 25 mg PO DAILY [facility]; Protocol Last Admin: 05/26/23 08:55 Dose: 25 mg Documented By: ISAIAS Omeprazole (Omeprazole 20 Mg Capsule.Dr) 20 mg PO DAILY [facility] Last Admin: 05/26/23 08:54 Dose: 20 mg Documented By: ISAIAS Ondansetron HCl (Ondansetron Hcl 4 Mg/2 Ml Vial) 4 mg IVPUSH Q8H PRN PRN Reason: Nausea and Vomiting Pharmacy Consult (Consult Rx Etoh Phenob Po Only) 1 each MISCELLANE ONCE PRN; Protocol PRN Reason: Consult order Phenobarbital (Phenobarbital 30 Mg Tablet) 30 mg PO BID [facility]; Protocol Stop: 05/27/23 21:01 Last Admin: 05/26/23 08:54 Dose: 30 mg Documented By: ISAIAS Phenobarbital (Phenobarbital 30 Mg Tablet) 30 mg PO DAILY [facility]; Protocol Stop: 05/29/23 09:01 Sertraline HCl (Sertraline Hcl 50 Mg Tablet) 50 mg PO DAILY [facility] Last Admin: 05/26/23 08:55 Dose: 50 mg Documented By: ISAIAS Sodium Chloride (0.9 % Sodium Chloride Flush 3 Ml Syringe) [facility] Last Admin: 05/26/23 08:45 Dose: 3 ml Documented By: ISAIAS Spironolactone (Spironolactone 25 Mg Tablet) 50 mg PO DAILY [facility]; Protocol Last Admin: 05/26/23 08:54 Dose: 50 mg Documented By: ISAIAS Thiamine HCl (Thiamine Hcl 100 Mg Tablet) 100 mg PO DAILY [facility] Last Admin: 05/26/23 08:55 Dose: 100 mg Documented By: ISAIAS Trazodone HCl (Trazodone Hcl 50 Mg Tablet) 50 mg PO BEDTIME [facility] Last Admin: 05/25/23 19:41 Dose: 50 mg Documented By: ELLEN Labs 05/26/23 06:25 05/26/23 06:25 Labs: Laboratory Results - last 24 hr 05/25/23 05/26/23 13:06 06:25 MCV 79.1 L MCH 23.9 L MCHC 30.2 L RDW 18.2 H Plt Count 121 L D MPV 10.4 Immature Gran % (Auto) 0.7 H Neut % (Auto) 62.6 Lymph % (Auto) 24.0 [place] % (Auto) 10.1 Eos % (Auto) 2.2 Baso % (Auto) 0.4 Lymph # (Auto) 1.8 [place] # (Auto) 0.8 Eos # (Auto) 0.2 Baso # (Auto) 0.0 Abs Immat Gran (auto) 0.05 H Absolute Neuts (auto) 4.8 Absolute Nucleated RBC 0.000 Nucleated RBC % (auto) 0.0 Anion Gap 11 L Estim Creat Clear Calc 135.7 Estimated GFR > 60 Random Glucose 101 Calcium 8.8 D Magnesium 2.1 Hep Bs Antigen Negative Hep Bs Antibody NONREACTIVE Hep B Core Total Ab Nonreactive Hepatitis C Ab (EIA) Nonreactive HIV 1&2 Ab/P24 Ag 4thGn Nonreactive Assessment and Plan (1) Acute exacerbation of CHF (congestive heart failure): Status: Acute Assessment and Plan: This is a 52-year-old man admitted with increased lower extremity edema, scrotal edema with history of alcohol abuse and liver cirrhosis Acute respiratory failure due to CHF exacerbation weaned off oxygen and on room air Acute HFpEF nearly 10L negative since admission continue IV Lasix 40 mg b.i.d. today and then change to po lasix in am continue Aldactone 50 mg daily stop HCTZ follow BMP daily Liver cirrhosis continue spironolactone, IV lasix (on po at baseline) no evidence of ascites on abdominal ultrasound follow liver function tests seen by GI rec egd and colonoscopy, tentatively scheduled for Monday Thrombocytopenia r/t etoh liver dz cbc stable anemia b12, folate wnl no evidence of blood loss avoid blood transfusion due to fluid overload H/H stable alcohol use disorder continue thiamine/folic acid continue phenobarbitol protocol seen by recovery team, has appointment on 06/02 at [facility] at 1:15 for follow up COPD/asthma No exacerbation Continue albuterol as needed Hypertension started on loartan continue aldactone HCTZ, norvasc on hold dvt ppx - heparin Full code attending - Dr. Chaney Patient requires ongoing hospitalization for treatment of congestive heart failure requiring IV Lasix, specialty consultation and echocardiogram cannot be done at a lesser acute setting as patient would decompensate quickly Quality Stroke Does the patient have a stroke diagnosis?: No VTE Prior VTE?: No VTE Risk Level:: Medical - moderate - high VTE Device Contraindication: Treatment Not Indicated VTE Drug Contraindication: N/A - Med Ordered
[2023-05-26] MEDS: Acetaminophen 325 MG TABLET 650 MG PO (17:13)
[2023-05-26 20:00] VITALS: BP 111/49; PULSE 90; RESP 18; TEMP 36.3; O2SAT 99
[2023-05-26] MEDS: traZODone HCL 50 MG TABLET PO (20:20)
[2023-05-26 23:32] VITALS: BP 128/58; PULSE 82; RESP 20; TEMP 36.6; O2SAT 96
[2023-05-27 03:14] VITALS: BP 127/60; PULSE 85; RESP 18; TEMP 36.7; O2SAT 96
[2023-05-27 05:21] VITALS: BMI 37.9
[2023-05-27 06:50] LABS: Anion Gap 13 (12-20); Blood Urea Nitrogen 16 mg/dL (9-16); Calcium 8.9 mg/dL (8.4-10.2); Carbon Dioxide 25 mmol/L (22-29); Chloride 105 mmol/L (96-108); Estimated Glomerular Filt Rate > 60; Glucose Random 102 mg/dL (60-115); Potassium 3.9 mmol/L (3.3-5.1); Sodium 139 mmol/L (135-145)
[2023-05-27 07:18] VITALS: BP 127/58; PULSE 86; RESP 18; TEMP 36.9; O2SAT 95
--- NOTE | 2023-05-27 10:07 | HO.PM.IMPN ---
Subjective Subjective Date of Service: 05/27/23 Interval History: seen and examined this morning follow up for fluid overload leg edema improving no sob Review of Systems Review of Systems: Yes all other systems are reviewed and are negative Constitutional Constitutional: Denies chills and Denies fever(s) Cardiovascular Cardiovascular: Denies chest pain, Denies palpitations and Denies dyspnea Respiratory Respiratory: Denies cough and Denies dyspnea Endocrine Endocrine: Denies palpitations Physical Exam Vital Signs: Vital Signs: Last Vital Signs Temp 98.5 F 05/27/23 07:18 Pulse 86 05/27/23 07:18 Resp 18 05/27/23 07:18 BP 127/58 L 05/27/23 07:18 Pulse Ox 95 05/27/23 07:18 O2 Del Method Room Air 05/27/23 07:18 O2 Flow Rate 3 05/23/23 14:59 BMI result Body Mass Index 37.9 Const: General: cooperative, comfortable, no acute distress, alert and awake Nutritional Appearance: overweight Orientation/consciousness: patient oriented x3 Resp: Effort & Inspection: normal respiratory effort, able to speak in complete sentences, no respiratory distress and no use of accessory muscles Auscultation: clear to auscultation bilaterally Cardio: Jugular venous distension: JVD (mild) Rate: regular rate GI: Inspection: No distended Palpation (GI): Soft to palpation Neuro: General: patient oriented x3 and moves all extremities Extrem: Other: leg edema much improved, still with b/l swelling to feet also improving Objective Data Active Medications Acetaminophen (Acetaminophen 325 Mg Tablet) 650 mg PO Q6H PRN PRN Reason: Pain, Mild (Pain Scale 1-3) Last Admin: 05/26/23 17:13 Dose: 650 mg Documented By: ISAIAS Albuterol Sulfate (Albuterol Sulfate 90 Mcg 8 Gm Inhaler) 2 puff INHALE Q6H PRN PRN Reason: wheezing Folic Acid (Folic Acid 1 Mg Tablet) 1 mg PO DAILY [facility] Last Admin: 05/26/23 08:55 Dose: 1 mg Documented By: ISAIAS Furosemide (Furosemide 40 Mg Tablet) 40 mg PO DAILY [facility]; Protocol Heparin Sodium (Porcine) (Heparin Sodium,Porcine 5,000 Unit/Ml Vial) 5,000 unit SUBCUT Q8H [facility] Last Admin: 05/26/23 23:16 Dose: 5,000 unit Documented By: JUAN Hydroxyzine HCl (Hydroxyzine Hcl 25 Mg Tablet) 25 mg PO BID PRN PRN Reason: Anxiety Losartan Potassium (Losartan Potassium 25 Mg Tablet) 25 mg PO DAILY [facility]; Protocol Last Admin: 05/26/23 08:55 Dose: 25 mg Documented By: ISAIAS Omeprazole (Omeprazole 20 Mg Capsule.Dr) 20 mg PO DAILY [facility] Last Admin: 05/26/23 08:54 Dose: 20 mg Documented By: ISAIAS Ondansetron HCl (Ondansetron Hcl 4 Mg/2 Ml Vial) 4 mg IVPUSH Q8H PRN PRN Reason: Nausea and Vomiting Pharmacy Consult (Consult Rx Etoh Phenob Po Only) 1 each MISCELLANE ONCE PRN; Protocol PRN Reason: Consult order Phenobarbital (Phenobarbital 30 Mg Tablet) 30 mg PO BID [facility]; Protocol Stop: 05/27/23 21:01 Last Admin: 05/26/23 20:20 Dose: 30 mg Documented By: JUAN Phenobarbital (Phenobarbital 30 Mg Tablet) 30 mg PO DAILY [facility]; Protocol Stop: 05/29/23 09:01 Sertraline HCl (Sertraline Hcl 50 Mg Tablet) 50 mg PO DAILY [facility] Last Admin: 05/26/23 08:55 Dose: 50 mg Documented By: ISAIAS Sodium Chloride (0.9 % Sodium Chloride Flush 3 Ml Syringe) [facility] Admin: 05/26/23 23:17 Dose: 3 ml Documented By: JUAN Spironolactone (Spironolactone 25 Mg Tablet) 50 mg PO DAILY [facility]; Protocol Last Admin: 05/26/23 08:54 Dose: 50 mg Documented By: ISAIAS Thiamine HCl (Thiamine Hcl 100 Mg Tablet) 100 mg PO DAILY [facility] Last Admin: 05/26/23 08:55 Dose: 100 mg Documented By: ISAIAS Trazodone HCl (Trazodone Hcl 50 Mg Tablet) 50 mg PO BEDTIME [facility] Last Admin: 05/26/23 20:20 Dose: 50 mg Documented By: JUAN Labs 05/26/23 06:25 05/27/23 06:13 Labs: Laboratory Results - last 24 hr 05/27/23 06:13 Hold Purple Top SEE NOTE Anion Gap 13 Estim Creat Clear Calc 141.0 Estimated GFR > 60 Random Glucose 102 Calcium 8.9 Assessment and Plan (1) Acute exacerbation of CHF (congestive heart failure): Status: Acute Assessment and Plan: This is a 52-year-old man admitted with increased lower extremity edema, scrotal edema with history of alcohol abuse and liver cirrhosis Acute respiratory failure due to CHF exacerbation weaned off oxygen and on room air Acute HFpEF echo with preserved EF negative 10L since admission s/p IV lasix, will change to 40 mg po lasix today (on 20mg at baseline) continue Aldactone 50 mg daily stop HCTZ follow BMP daily Liver cirrhosis continue spironolactone, lasix no evidence of ascites on abdominal ultrasound seen by GI rec inpatient egd and colonoscopy, scheduled for Monday; NPO monday night Thrombocytopenia r/t etoh liver dz cbc stable anemia b12, folate wnl no evidence of blood loss H/H stable alcohol use disorder continue thiamine/folic acid continue phenobarbitol protocol seen by recovery team, has appointment on 06/02 at [facility] at 1:15 for follow up COPD/asthma No exacerbation Continue albuterol as needed Hypertension started on loartan continue aldactone HCTZ, norvasc on hold Morbid obesity BMI 37.9 weight loss encouraged dvt ppx - heparin Full code attending - Dr. Henry Patient requires ongoing hospitalization for treatment of congestive heart failure, EGD/colonoscopy cannot be done at a lesser acute setting as patient could decompensate quickly Quality Stroke Does the patient have a stroke diagnosis?: No VTE Prior VTE?: No VTE Risk Level:: Medical - moderate - high VTE Device Contraindication: Treatment Not Indicated VTE Drug Contraindication: N/A - Med Ordered
[2023-05-27] MEDS: Spironolactone 25 MG TABLET 50 MG PO (10:47)
[2023-05-27] MEDS: Furosemide 40 MG TABLET PO (10:48)
[2023-05-27] MEDS: Heparin Sodium,Porcine 5,000 UNIT/ML VIAL 5000 UNIT SUBCUT (10:49)
[2023-05-27] MEDS: Losartan Potassium 25 MG TABLET PO (10:49)
[2023-05-27] MEDS: Sertraline HCL 50 MG TABLET PO (10:49)
[2023-05-27] MEDS: Thiamine HCL 100 MG TABLET PO (10:49)
[2023-05-27] MEDS: Folic Acid 1 MG TABLET PO (10:49)
[2023-05-27] MEDS: Omeprazole 20 MG CAPSULE.DR PO (10:49)
[2023-05-27] MEDS: 0.9 % Sodium Chloride Flush 3 ML SYRINGE IVFLUSH (10:50)
[2023-05-27] MEDS: PHENobarbitaL 30 MG TABLET PO (10:52)
[2023-05-27 11:40] VITALS: BP 119/57; PULSE 96; RESP 20; TEMP 37.1; O2SAT 100
[2023-05-27 16:00] VITALS: BP 128/62; PULSE 92; RESP 20; TEMP 36.9; O2SAT 97
--- NOTE | 2023-09-01 14:33 | P.DS_ITS ---
DS: Providers Provider Date of Service: 05/27/23 Date of admission: 05/23/23 16:00 Date of discharge: 05/27/23 Primary care physician: MP Schofield Consults: 05/23/23 16:02 Consult to Cardiology Routine Consulting Provider: [facility] Cardiovascular Services Reason for consultation: CHF 05/23/23 16:30 Consult to Gastroenterology Routine Consulting Provider: Katelynn Cuevas Reason for consultation: anemia 05/23/23 16:41 Addiction Medicine Routine Consulting Provider: Addiction Covering Reason for consultation: alcohol abuse Discharging clinician: Lorri Johnson DS: Diagnosis Discharge Diagnosis (1) Acute exacerbation of CHF (congestive heart failure): Status: Acute DS: Summary Hospital Course Hospital Course: From H&P on the day of admission 52-year-old man presented there with complaints of worsening bilateral lower extremity edema that says has been ongoing for the last several months but worsening recently. He reported scrotal swelling that started last night. He reports drinking at least 6-8 beers every day and smokes about a pack a cigarettes a day. Denies fever, chills, nausea, vomiting, diarrhea, chest pain. Labs showing microcytic anemia with history of liver cirrhosis a mildly elevated liver enzymes likely secondary to alcohol abuse as levels 277, stool occult negative. Chest x-ray showing bilateral shaji hilar and lower lobe airspace opacifications. Scrotal ultrasound showing right inguinal hernia with both testes unremarkable. Blood pressure and softer side after receiving IV Lasix. Plan is to admit patient for further management and treatment of acute congestive heart failure Acute respiratory failure due to CHF exacerbation weaned off oxygen and on room air Acute HFpEF echo with preserved EF negative 10L since admission s/p IV lasix, will change to 40 mg po lasix today (on 20mg at baseline) continue Aldactone 50 mg daily stop HCTZ follow BMP daily Liver cirrhosis continue spironolactone, lasix no evidence of ascites on abdominal ultrasound seen by GI rec inpatient egd and colonoscopy, scheduled for Monday; NPO monday night Thrombocytopenia r/t etoh liver dz cbc stable anemia b12, folate wnl no evidence of blood loss H/H stable alcohol use disorder continue thiamine/folic acid continue phenobarbitol protocol seen by recovery team, has appointment on 06/02 at [facility] at 1:15 for follow up COPD/asthma No exacerbation Continue albuterol as needed Hypertension started on loartan continue aldactone HCTZ, norvasc on hold unfortunately on the evening of 05/27, the patient elected to leave the hospital against medical advice. Time Attestation Total time managing care of this patient today: 32 mintues. Discharge Coordination Time (in mins): 32 Quality: Safe Use of Opioids Does Pt have an Active Cancer Diagnosis on the Problem List?: No Quality: Stroke Does the patient have a stroke diagnosis?: No Physical Exam Vital Signs: Vital Signs: Last Vital Signs Temp 98.4 F 05/27/23 16:00 Pulse 92 05/27/23 16:00 Resp 20 05/27/23 16:00 BP 128/62 05/27/23 16:00 Pulse Ox 97 05/27/23 16:00 O2 Del Method Room Air 05/27/23 16:00 O2 Flow Rate 3 05/23/23 14:59 BMI result Body Mass Index 37.9 Const: General: comfortable, no acute distress, alert and awake Nutritional Appearance: average body habitus Resp: Effort & Inspection: normal respiratory effort, able to speak in complete sentences, no respiratory distress and no use of accessory muscles Cardio: Rate: regular rate GI: Inspection: No distended Palpation (GI): nontender Neuro: General: No moves all extremities and No CN's II-XI intact bilaterally DS: Data Data Completed and Pending Completed studies during hospitalization [Text1]: Procedures Detoxification Services for Substance Abuse Treatment (06/27/23) Discharge Plan Discharge Patient Disposition: Left Against Medical Advice Discharge Diagnosis: acute respiratory failure due to acute CHF acute HFpEF liver cirrhosis with thrombocytopenia Referrals: Zo Doe FNP [Primary Care Provider] - 1 Week Discharge Medications: No Action gabapentin 100 mg capsule 100 mg PO BID PRN (Reason: Pain) omeprazole 40 mg capsule,delayed release(DR/EC) 40 mg PO DAILY@0630 thiamine HCl (vitamin B1) 100 mg tablet 100 mg DAILY amlodipine 5 mg tablet 5 mg PO DAILY folic acid 1 mg tablet 1 mg PO DAILY albuterol sulfate [Ventolin HFA] 90 mcg/actuation HFA aerosol inhaler 2 puff INHALATION Q6H PRN (Reason: wheezing) sertraline 50 mg tablet 50 mg PO DAILY spironolactone 50 mg tablet 50 mg PO DAILY cholecalciferol (vitamin D3) 25 mcg (1,000 unit) capsule 25 mcg DAILY quetiapine 25 mg tablet 25 mg BEDTIME docusate sodium 100 mg capsule 100 mg PO BID PRN (Reason: constipation) ferrous sulfate 325 mg (65 mg iron) tablet,delayed release (DR/EC) 325 mg PO DAILY furosemide [Lasix] 40 mg tablet 40 mg PO DAILY Qty: 30 0RF Discharge Orders: Discharge Order (Routine); Ordered 09/01/23 Ordered By: Lorri Johnson Care Plan Goals: left AMA Health Concerns: liver cirrhosis respiratory failure CHF Plan of Treatment: left AMA Assessment: you have left Against medical advice Call to schedule follow-up appointment with PCP Return with new or worsening symptoms Discharge Date/Time: 05/27/23 17:00
== END 2023-05-27 17:00 | disposition left against medical advice (07) | DRG 291 ==
LOC: HO.ED 15:09 → HO.EDOVER 16:16 → HO.IMC 16:41
PROVIDERS: Hospitalist; Internal Medicine; Physician Assistant; Physician Assistant Medical; Admitting Provider Nurse Practitioner Acute Care; Emergency Provider Emergency Medicine Emergency Medical Services; PCP Registered Nurse; Visit Provider Physician Assistant Medical
DX: I11.0 Hypertensive heart disease with heart failure (principal); I50.31 Acute diastolic (congestive) heart failure; J96.01 Acute respiratory failure with hypoxia; K70.30 Alcoholic cirrhosis of liver without ascites; J44.9 Chronic obstructive pulmonary disease, unspecified; E66.01 Morbid (severe) obesity due to excess calories; Z68.37 Body mass index [BMI] 37.0-37.9, adult; D69.59 Other secondary thrombocytopenia; F17.210 Nicotine dependence, cigarettes, uncomplicated; F10.10 Alcohol abuse, uncomplicated; K21.9 Gastro-esophageal reflux disease without esophagitis; Z20.822 Contact with and (suspected) exposure to COVID-19; Y90.8 Blood alcohol level of 240 mg/100 ml or more; Z23 Encounter for immunization; Z71.6 Tobacco abuse counseling; Z79.899 Other long term (current) drug therapy
CPT/HCPCS: 0241U; 36415; 71045; 71250; 76705; 76870; 80048; 80053; 80307; 81001; 82272; 82607; 82728; 82746; 83540; 83690; 83735; 83880; 84484; 85025; 86704; 86706; 86803; 86850; 86900; 86901; 87340; 87389; 90686; 93306; 99285; J1644; J1940; J2560; Q9957

== ENCOUNTER 2023-05-23 16:00 | Outpatient (BNV) | payer OTHER, SELFPAY | END 2023-05-25 07:00 | PROVIDERS: Admitting Provider Nurse Practitioner Acute Care; Emergency Provider Emergency Medicine Emergency Medical Services; PCP Registered Nurse; Visit Provider Internal Medicine Cardiovascular Disease | DX: I50.9 Heart failure, unspecified (principal) | CPT/HCPCS: 93306 ==

== ENCOUNTER → 2023-05-23 16:00 | Outpatient (BNV) | payer OTHER, SELFPAY | PROVIDERS: Admitting Provider Nurse Practitioner Acute Care; Emergency Provider Emergency Medicine Emergency Medical Services; Visit Provider Hospitalist | DX: I50.9 Heart failure, unspecified (principal) | CPT/HCPCS: 99223; 99232; 99233 ==

== ENCOUNTER → 2023-05-23 16:00 | Outpatient (BNV) | payer OTHER, SELFPAY | PROVIDERS: Admitting Provider Nurse Practitioner Acute Care; Emergency Provider Emergency Medicine Emergency Medical Services; Visit Provider Internal Medicine Gastroenterology | DX: D64.9 Anemia, unspecified (principal) | CPT/HCPCS: 99223 ==

== ENCOUNTER → 2023-05-23 16:00 | Outpatient (BNV) | payer OTHER, SELFPAY | PROVIDERS: Admitting Provider Nurse Practitioner Acute Care; Emergency Provider Emergency Medicine Emergency Medical Services; Visit Provider Internal Medicine Cardiovascular Disease | DX: I50.9 Heart failure, unspecified (principal) | CPT/HCPCS: 99223; 99232 ==

== ENCOUNTER 2023-06-27 09:43 | Inpatient (IN) | payer OTHER, SELFPAY ==
--- NOTE | ~2023-06-27 | XR_ITS ---
EXAMINATION: XR CHEST CLINICAL INFORMATION: Shortness of breath. History of CHF. COMPARISON: Chest CT and chest x-ray May 23, 2023 TECHNIQUE: Frontal view of the chest was obtained. FINDINGS: Cardiac silhouette is mildly enlarged. There is mild prominence of the interstitial markings diffusely. There is no gross lobar consolidation. No appreciable pleural effusion. No pneumothorax. XR/XR chest 1V IMPRESSION: Mild prominence of the interstitial markings diffusely. Findings are nonspecific but may represent mild volume overload versus viral infiltrate.
--- NOTE | ~2023-06-27 | US_ITS ---
EXAMINATION: US ABDOMEN LIMITED CLINICAL INFORMATION: Ascites. COMPARISON: Abdominal ultrasound 05/23/2023 TECHNIQUE: Real-time imaging of the 4 quadrants of the abdomen FINDINGS: Ultrasound examination of the 4 quadrants of the abdomen demonstrate no evidence of ascites. Intra-abdominal organs are not evaluated by this exam. US/US abdomen limited IMPRESSION: No ascites.
[2023-06-27 09:52] VITALS: BP 112/49; BP 116/72; PULSE 90; PULSE 95; RESP 18; TEMP 37.1; O2SAT 96; O2SAT 98; BMI 44.3
--- NOTE | 2023-06-27 10:05 | ED.GENADULT ---
HPI - General Adult General Chief complaint: Extremity Problem Stated complaint: LEG & ABD SWELLING X4 MONTHS,FEELS SICK PER EMS Time Seen by Provider: 06/27/23 09:54 Source: patient, EMS and travel professional Mode of arrival: EMS Limitations: no limitations History of Present Illness HPI narrative: 52-year-old man presented to ED with complaints of worsening bilateral lower extremity edema that says has been ongoing for the last several months but worsening recently. Was seen at [facility] 5 times had ultrasound of lower extremities was unremarkable, patient takes water pills diuresis with normal urination, patient with history of drinking problem today he drank 3-4 beers as per patient. Patient been having exertional dyspnea intermittently when he walk with his walker, also reports PND occasionally. Related Data Home Medications Medication Instructions Recorded Confirmed albuterol sulfate 90 mcg/actuation 2 puff inhalation Q6H PRN wheezing 05/23/23 06/27/23 aerosol inhaler (Ventolin HFA) amlodipine 5 mg tablet 5 mg PO DAILY 05/23/23 06/27/23 cholecalciferol (vitamin D3) 25 25 mcg DAILY 05/23/23 06/27/23 mcg (1,000 unit) capsule folic acid 1 mg tablet 1 mg PO DAILY 05/23/23 06/27/23 furosemide 20 mg tablet 20 mg DAILY 05/23/23 06/27/23 hydroxyzine HCl 25 mg tablet 25 mg PO BID PRN Anxiety 05/23/23 06/27/23 sertraline 50 mg tablet 50 mg PO DAILY 05/23/23 06/27/23 spironolactone 50 mg tablet 50 mg PO DAILY 05/23/23 06/27/23 thiamine HCl (vitamin B1) 100 mg 100 mg DAILY 05/23/23 06/27/23 tablet docusate sodium 100 mg capsule 100 mg PO BID PRN constipation 06/27/23 06/27/23 ferrous sulfate 325 mg (65 mg 325 mg PO DAILY 06/27/23 06/27/23 iron) tablet,delayed release quetiapine 25 mg tablet 25 mg BEDTIME 06/27/23 06/27/23 Allergies Allergy/AdvReac Type Severity Reaction Status Date / Time aspirin Allergy Unknown rash Verified 06/27/23 10:09 Shrimp Flavor Allergy Unknown anaphylaxis Uncoded 05/23/23 10:05 Review of Systems Review of Systems: All other systems are reviewed and are negative Constitutional: Reports as per HPI and Reports no additional constitutional complaints Eyes: Reports as per HPI and Reports no additional eye complaints Reports system reviewed and no additional complaints, except as documented Cardiovascular: Reports as per HPI and Reports no additional cardiovascular complaints Respiratory: Reports as per HPI and Reports no additional respiratory complaints Gastrointestinal: Reports as per HPI and Reports no additional gastrointestinal complaints Genitourinary: Reports no additional female genitourinary complaints Musculoskeletal: Reports no additional musculoskeletal complaints Skin/Breast: Reports system reviewed and no additional complaints, except as docu Psychiatric: Reports no additional psychiatric complaints Endocrine: Reports no additional endocrine complaints Hematologic/Lymphatic: Reports no additional hematologic/lymphatic complaints Allergic/Immunologic: Reports no additional allergic/immunologic complaints Reports system reviewed and no additional complaints, except as documented and Reports Abnormal speech present. REPLACED BY [facility] Past Medical History Onset Date is defined in the Problem List Problems that require an onset date and time if occurred within 24 hrs of arrival to the ED Aortic Dissection and Rupture; Neurologic impairment; Cardiopulmonary Arrest; Endotracheal Intubation; Insertion or Replacement of Mechanical Circulatory Assist Device Medical History Pancreatic lesion Peripheral neuropathy Portal vein thrombosis Recurrent acute pancreatitis Joint pain Insomnia Anxiety Asthma Hypertension Depression Alcoholic fatty liver Alcoholic cirrhosis of liver Alcohol abuse Social History Social History Household Members: None Housing: Apartment Do you presently have visiting nurse or other home services: Yes (2 nurses and in the process of getting a making line worker. for bp checks and meds) Alcohol intake: current Alcohol intake frequency: 3 or more drinks per day Alcohol type: beer Comment: pt refuse Patient Tobacco Use Status: Current everyday Tobacco user Tobacco use type: Cigarette Cigarette Packs Per Day: 1 Cigarettes Per Day: 20.0 Years Smoked: 33 Second Hand Smoke Exposure: No Use of substances other than those prescribed or required for medical reasons: No Advance Directives: No Advance Directives Information Provided: Yes Nutrition Risks: No Nutritional Risk service: No Physical Exam ED Vital Signs: Vital Signs - 24 hr 06/27/23 09:52 06/27/23 10:30 06/27/23 12:14 Temperature 98.7 F Pulse Rate 95 92 88 Respiratory Rate 18 18 19 Blood Pressure 112/49 L 110/60 123/71 Pulse Oximetry 96 97 96 Oxygen Delivery Method Room Air Room Air Room Air BMI result Body Mass Index 44.3 Vital signs have been reviewed and appear to be correct. Blood pressure elevated. Heart rate normal. Respiratory rate normal. Temperature normal. Oxygen saturation normal. Appearance: Alert. Oriented X3. No acute distress. Head: Normal external exam. Normocephalic. Atraumatic. No Mallory signs noted. No raccoon eyes noted Eyes: PERRLA. EOMI. Conjunctiva and sclera normal. Eyelids normal. ENT: TM's Normal. Pharynx normal. Uvula midline. Moist mucous membranes. No trismus noted. No drooling noted. No muffled voice noted. Neck: Normal inspection. Neck supple. FROM. No adenopathy. Thyroid Normal. No meningeal signs. No neck mass noted. CVS: Normal heart rate and rhythm. Heart sound normal. No murmurs noted. Pulses normal throughout. Respiratory: No respiratory distress. Painless inspiration. Breath sounds normal. Bilateral basilar rales, Chest nontender. No accessory muscle usage noted or decreased air movement noted. Abdomen: Soft and nontender. Bowel sounds normal in all 4 quadrants. No distention noted. No organomegaly noted. No visible injury noted. Rectal exam: Brown stool trace blood guaiac positive, no external hemorrhoids. Back: No CVA tenderness. Full range of motion noted. Skin: Skin warm and dry. Normal skin color. Normal skin turgor. No rashes/lesions/lacerations noted. Extremities: +3 lower extremity edema. Extremities exhibit normal range of motion. Extremities nontender. Neuro: Oriented X 3. Cranial nerve exam: II-XII are grossly intact No motor deficit. No sensory deficit. Reflexes normal. Course Reevaluation(s) Reevaluation #1: At 52-year-old male history of CHF came in mainly for lower extremity edema, no scrotal edema, mild PND and exertional dyspnea patient is already on Lasix was given 1 extra dose of Lasix in the emergency department. X-ray suggesting volume overload no rafal pulmonary edema. Patient also been having alcohol drinking with elevation of LFTs. Will admit for more diuresis. Time: 12:22 Medications Administered Generic Name Dose Route Start Last Admin Trade Name Freq PRN Reason Stop Dose Admin Octreotide Acetate 500 mcg/ 501 mls @ 50.1 mls/hr 06/27/23 13:00 06/27/23 14:31 Sodium Chloride IVCONT 50 mcg/hr .Q10H [place] 50.1 mls/hr Administration 50 MCG/HR Ceftriaxone Sodium 1 gm/ 50 mls @ 100 mls/hr 06/27/23 13:00 06/27/23 14:32 Sodium Chloride IV Infused Q24H [place] Infusion Nicotine 21 mg 06/27/23 13:30 06/27/23 13:58 Nicotine 21 Mg Patch.[id number] TRANSDERMA 21 mg DAILY [place] Administration Sodium Chloride 3 ml 06/27/23 16:00 06/27/23 15:39 0.9 % Sodium Chloride Flush 3 Ml Syringe IVFLUSH Not Given QSHIFT [place] Discontinued Medications Generic Name Dose Route Start Last Admin Trade Name Freq PRN Reason Stop Dose Admin Furosemide 40 mg 06/27/23 10:16 06/27/23 10:36 Furosemide 40 Mg/4 Ml Vial IVPUSH 06/27/23 10:17 40 mg ONCE ONE Administration Protocol Octreotide Acetate 50 mcg 06/27/23 12:57 06/27/23 13:57 Octreotide Acetate 100 Mcg/Ml Ampul IVPUSH 06/27/23 12:58 50 mcg ONCE ONE Administration Phenobarbital Sodium 317.2 mg 06/27/23 14:00 06/27/23 13:59 Phenobarbital Sodium 130 Mg/Ml Im Once IM 06/27/23 14:01 317.2 mg ONCE ONE Administration Protocol Medical Decision Making Differential Diagnosis Differential Diagnoses: The differential diagnosis associated with the presentation includes (CHF, volume overload, alcoholic hepatitis, electrolyte abnormality, severe anemia, GI bleed.) Admission/Observation Consideration of admission/observation: Escalation of care including admission/observation considered Consult Healthcare Provider Management of the patient was discussed with: Hospitalist (Dr. Polanco) Lab Data MDM Lab Attestation statement: I reviewed the patient's lab results. 06/27/23 10:25 06/27/23 10:25 Labs: Lab Results 06/27/23 06/27/23 06/27/23 Range/Units 10:25 12:15 12:44 WBC 5.2 (4.8-10.8) X10*3/uL RBC 3.29 L (4.60-5.80) X10*6/uL Hgb 7.5 L (14.0-18.0) g/dl Hct 24.2 L (42.0-52.0) % MCV 73.6 L (80.0-98.0) fL MCH 22.8 L (27.0-33.0) pg MCHC 31.0 (31.0-36.0) g/dl RDW 24.4 H (11.0-16.0) % Plt Count 63 L D (160-400) X10*3/uL MPV 9.4 (9.4-12.4) fL Immature Gran % (Auto) 0.6 H (0.0-0.4) % Neut % (Auto) 61.9 (45-73) % Lymph % (Auto) 25.4 (20-40) % King % (Auto) 9.8 (2-11) % Eos % (Auto) 1.7 (0-4) % Baso % (Auto) 0.6 (0-2) % Lymph # (Auto) 1.3 (1.2-4.9) X10*3/uL King # (Auto) 0.5 (0.1-1.2) X10*3/uL Eos # (Auto) 0.1 (0.0-0.4) X10*3/uL Baso # (Auto) 0.0 (0.0-0.2) X10*3/uL Abs Immat Gran (auto) 0.03 (0.00-0.03) X10*3/uL Absolute Neuts (auto) 3.2 (2.0-8.3) x10*3/uL Absolute Nucleated RBC 0.000 (0.0-0.012) X10*3/uL Nucleated RBC % (auto) 0.0 (0.0-0.2) /100WBC Sodium 138 (135-145) mmol/L Potassium 3.8 (3.3-5.1) mmol/L Chloride 107 (96-108) mmol/L Carbon Dioxide 25 (22-29) mmol/L Anion Gap 10 L (12-20) BUN 10 (9-16) mg/dL Creatinine 1.04 (0.5-1.4) mg/dL Estim Creat Clear Calc 108.0 Estimated GFR > 60 Random Glucose 128 H (60-115) mg/dL Calcium 7.5 L D (8.4-10.2) mg/dL Iron 21 L (45-160) mcg/dL TIBC 327 (228-428) mcg/dL % Saturation 6 L (15-50) % Unsat Iron Binding 306 ug/dL Ferritin 64 (20-250) ng/mL Total Bilirubin 1.3 H (0.0-1.0) mg/dL Direct Bilirubin 0.8 H (0.0-0.5) mg/dL AST 243 H (5-37) U/L ALT 83 H (0-40) U/L Alkaline Phosphatase 258 H (39-117) U/L Troponin I High Sens 7.6 (<3.5-35.0) ng/L B-Natriuretic Peptide 100 (<100) pg/mL Total Protein 7.0 (6.5-8.0) g/dL Albumin 3.0 L (3.5-5.0) g/dL Lipase 163 H (8-78) U/L Urine Color Yellow Urine Appearance Clear Urine pH 5.0 (5.0-9.0) Ur Specific [place] <= 1.005 (1.005-1.025) Urine Protein Negative (Neg-Trace) mg/dL Urine Glucose (UA) Negative (Negative) mg/dL Urine Ketones Negative (Negative) mg/dL Urine Blood Negative (Negative) Urine Nitrite Negative (Negative) Ur Leukocyte Esterase Negative (Negative) Stool Occult Blood NEGATIVE (NEGATIVE) Urine Opiates Screen Not Detected (Not Detect) Urine Fentanyl Screen Not Detected (Not Detect) Ur Barbiturates Screen Not Detected (Not Detect) Ur Phencyclidine Scrn Not Detected (Not Detect) Ur Amphetamines Screen Not Detected (Not Detect) U Benzodiazepines Scrn Not Detected (Not Detect) Urine Cocaine Screen Not Detected (Not Detect) U Marijuana (THC) Screen Not Detected (Not Detect) Ethyl Alcohol 304 H* mg/dL Independent Interpretation I performed an independent interpretation of an: Plain X-Ray (Chest:Mild prominence of the interstitial markings diffusely. Findings are nonspecific but may represent mild volume overload versus viral infiltrate. ) and Ultrasound (Abdomen:Ultrasound examination of the 4 quadrants of the abdomen demonstrate no evidence of ascites. Intra-abdominal organs are not evaluated by this exam.) Radiology Impression Discussion of test interpretation with radiology: I have reviewed the radiologist's reading. Chronic Conditions Patient?s care impacted by: Other (Alcohol abuse, CHF.) Discharge Plan Discharge Clinical Impression: CHF (congestive heart failure), Bilateral edema of lower extremity, Anemia, Rectal bleed Patient Disposition: Admitted As Inpatient Interventions: Admission Worksheet (ED) Last Done: 06/27/23 15:40
--- NOTE | 2023-06-27 10:09 | PC.NURSE ---
Addendum entered by William Abdi RN 06/27/23 10:13: bilat feet swollen, tender to touch, + pedal pulses, LSCTA Original Note: a+o x3, arrived via ambulance from home, pt reports bilat leg swelling and pain x4 wks. hx of CHF, on Lasix, compliant with meds, SOB sometimes with movements. hx of ETOH, reports drinking 3 beers this morning.
--- NOTE | 2023-06-27 10:16 | ECG_ITS ---
Test Reason : lower extremity swelling Blood Pressure : / mmHG Vent. Rate : 090 BPM Atrial Rate : 090 BPM P-R Int : 156 ms QRS Dur : 098 ms QT Int : 380 ms P-R-T Axes : 047 038 045 degrees QTc Int : 464 ms Normal sinus rhythm Normal ECG No previous ECGs available Referred By: Don Winters Electronically Signed By:WALTER VILLAGRAN
[2023-06-27 10:29] LABS: MANUAL DIFF FLAG NO
[2023-06-27 10:30] VITALS: BP 110/60; PULSE 92; RESP 18; O2SAT 97
[2023-06-27] MEDS: Furosemide 40 MG/4 ML VIAL IVPUSH (10:36)
[2023-06-27 10:46] LABS: Basophils Percent Auto 0.6 % (0-2); Eosinophils Absolute Auto 0.1 X10*3/uL (0.0-0.4); Eosinophils Percent Auto 1.7 % (0-4); Hematocrit 24.2 % (42.0-52.0); Hemoglobin 7.5 g/dl (14.0-18.0); Imm Gran Abs Auto 0.03 X10*3/uL (0.00-0.03); Imm Gran Pct Auto 0.6 % (0.0-0.4); Lymphocytes Absolute Auto 1.3 X10*3/uL (1.2-4.9); Lymphocytes Percent Auto 25.4 % (20-40); Mean Corpuscular Hemoglobin 22.8 pg (27.0-33.0); Mean Corpuscular Volume 73.6 fL (80.0-98.0); Mean Platelet Volume 9.4 fL (9.4-12.4); Monocytes Absolute Auto 0.5 X10*3/uL (0.1-1.2); Monocytes Percent Auto 9.8 % (2-11); Neutrophils Absolute Auto 3.2 x10*3/uL (2.0-8.3); Neutrophils Percent Auto 61.9 % (45-73); Red Blood Count 3.29 X10*6/uL (4.60-5.80); Red Cell Distribution Width 24.4 % (11.0-16.0); White Blood Count 5.2 X10*3/uL (4.8-10.8)
[2023-06-27 10:51] LABS: Alanine Aminotransferase 83 U/L (0-40); Alkaline Phosphatase 258 U/L (39-117); Anion Gap 10 (12-20); Aspartate Amino Transferase 243 U/L (5-37); Bilirubin Direct 0.8 mg/dL (0.0-0.5); Bilirubin Total 1.3 mg/dL (0.0-1.0); Blood Urea Nitrogen 10 mg/dL (9-16); Calcium 7.5 mg/dL (8.4-10.2); Carbon Dioxide 25 mmol/L (22-29); Chloride 107 mmol/L (96-108); Estimated Glomerular Filt Rate > 60; Glucose Random 128 mg/dL (60-115); Lipase 163 U/L (8-78); Potassium 3.8 mmol/L (3.3-5.1); Sodium 138 mmol/L (135-145)
[2023-06-27 10:56] LABS: B Type Natriuretic Peptide 100 pg/mL (<100); Troponin-I High Sensitivity 7.6 ng/L (<3.5-35.0)
[2023-06-27 11:07] LABS: Platelet Count 63 X10*3/uL (160-400)
--- NOTE | 2023-06-27 11:32 | PC.NURSE ---
LATE ENTRY: 1045-20g iv inserted R forearm, line patent, pt tolerated well. iv lasix given as documented. vss
[2023-06-27 12:14] VITALS: BP 123/71; PULSE 88; RESP 19; O2SAT 96
--- NOTE | 2023-06-27 12:20 | PC.NURSE ---
assumed care of pt at 1100, pt resting quietly in bed, vss, urine sample obtained and sent to lab, I&Os documented per AUG.
[2023-06-27 12:26] LABS: Appearance Urine Clear; Color Urine Yellow; Glucose Urine UA Negative (Negative); Leukocyte Esterase Urine Negative (Negative); Nitrite Urine Negative (Negative); Specific Gravity - Urine <= 1.005 (1.005-1.025); Urine Blood Negative (Negative); Urine Ketones Negative (Negative); Urine Protein Negative (Neg-Trace)
[2023-06-27 12:53] LABS: OBS Int Ctl Valid YES; OBS1 NEGATIVE (NEGATIVE)
--- NOTE | 2023-06-27 13:06 | P.HPHOSP_ITS ---
History of Present Illness Date of Service: 06/27/23 Attending physician on admission: [facility] Chief Complaint: sob, ble edema 52 year old male with alcohol dependence, chronic pancreatitis, alcoholic cirrhosis, portal hypertension, chronic thrombocytopenia, portal vein thrombosis, htn, hld, asthma presents to the ED for evaluation of ble edema. He states this has been ongoing for over a month with associated PANDA, orthopnea, PND worsening over the last week. Does not feel he has gained weight, but feels his abdomen has enlarged. Reports compliance with diuretics. There is also upper abd discomfort. Was recently admitted to [facility] [place] 05/23- 05/28 due to decompensated cirrhosis w/ chf exacerbation. He continues drinking 3-4 24 oz beers on a daily basis, states he continues drinking to manage withdrawal symptoms. No hx DTs or w/d seizure. He also smokes 1PPD cigarettes. Denies any fevers, chills, n/v/d, melena, hematochezia, lightheadedness, chest pain. On arrival, VSS. No leukocytosis/leukopenia. Slight drop in H/H with hemoglobin 7.5, hematocrit 24.2%, MCV 73.6. PLT 63. Bedside Stool occult blood positive per ED provider. Renal function baseline, electrolyte levels normal except for calcium 7.5. Total bilirubin 1.3, direct bilirubin 0.8. AST 243, ALT 83, alkaline phosphatase 258. Troponin 7.8, BNP 100. UA unremarkable. CXR shows mild prominence of the interstitial markings diffusely which are nonspecific possibly representing mild volume overload versus viral infiltrate. In the ED, given 40 mg IV Lasix. Review of Systems 2 Review of Systems: General: No fevers, malaise, unintentional weight loss Cardiovascular: No chest pain, palpitations, or leg edema Respiratory: +orthopnea, +PND. No shortness of breath at rest, wheezing, cough GI: +abd pain. No nausea, vomiting, diarrhea, constipation, melena, hematochezia : No dysuria, hematuria, increased urinary frequency, decreased urinary output MSK: No myalgia, back pain Neuro: No headaches, weakness, paresthesias Skin: No rashes or lesions PMFSH Medical History Pancreatic lesion Peripheral neuropathy Portal vein thrombosis Recurrent acute pancreatitis Joint pain Insomnia Anxiety Asthma Hypertension Depression Alcoholic fatty liver Alcoholic cirrhosis of liver Alcohol abuse Social History Household Members: None Housing: Apartment Do you presently have visiting nurse or other home services: Yes (2 nurses and in the process of getting a oil program compliance specialist. for bp checks and meds) Alcohol intake: current Alcohol intake frequency: 3 or more drinks per day Alcohol type: beer Comment: pt refuse Patient Tobacco Use Status: Current everyday Tobacco user Tobacco use type: Cigarette Cigarette Packs Per Day: 1 Cigarettes Per Day: 20.0 Years Smoked: 33 Second Hand Smoke Exposure: No Use of substances other than those prescribed or required for medical reasons: No Advance Directives: No Advance Directives Information Provided: Yes service: No Meds Allergies Allergy/AdvReac Type Severity Reaction Status Date / Time aspirin Allergy Unknown rash Verified 06/27/23 10:09 Shrimp Flavor Allergy Unknown anaphylaxis Uncoded 05/23/23 10:05 Active Medications: Current Medications Acetaminophen (Acetaminophen 325 Mg Tablet) 650 mg PO Q6H PRN PRN Reason: Pain, Mild (Pain Scale 1-3) Octreotide Acetate 500 mcg/ (Sodium Chloride) 501 mls @ 50.1 mls/hr IVCONT .Q10H [facility] Ceftriaxone Sodium 1 gm/ (Sodium Chloride) 50 mls @ 100 mls/hr IV Q24H [facility] Ondansetron HCl (Ondansetron Hcl 4 Mg/2 Ml Vial) 4 mg IVPUSH Q8H PRN PRN Reason: Nausea and Vomiting Senna (Sennosides 8.6 Mg Tablet) 17.2 mg PO BEDTIME PRN PRN Reason: Constipation Sodium Chloride (0.9 % Sodium Chloride Flush 3 Ml Syringe) 3 ml IVFLUSH QSHIFT [facility] Home Medications Medication Instructions Recorded Confirmed Last Taken Type albuterol sulfate 90 mcg/actuation 2 puff inhalation Q6H PRN wheezing 05/23/23 05/23/23 Unknown History aerosol inhaler (Ventolin HFA) amlodipine 5 mg tablet 5 mg PO DAILY 05/23/23 05/23/23 Unknown History cholecalciferol (vitamin D3) 25 25 mcg DAILY 05/23/23 05/23/23 Unknown History mcg (1,000 unit) capsule folic acid 1 mg tablet 1 mg PO DAILY 05/23/23 05/23/23 Unknown History furosemide 20 mg tablet 20 mg DAILY 05/23/23 05/23/23 Unknown History hydrochlorothiazide 12.5 mg tablet 12.5 mg PO DAILY 05/23/23 05/23/23 Unknown History hydroxyzine HCl 25 mg tablet 25 mg PO BID PRN Anxiety 05/23/23 05/23/23 Unknown History omeprazole 20 mg capsule,delayed 20 mg PO DAILY@0630 05/23/23 05/23/23 Unknown History release sertraline 50 mg tablet 50 mg PO DAILY 05/23/23 05/23/23 Unknown History spironolactone 50 mg tablet 50 mg PO DAILY 05/23/23 05/23/23 Unknown History thiamine HCl (vitamin B1) 100 mg 100 mg DAILY 05/23/23 05/23/23 Unknown History tablet trazodone 50 mg tablet 50 mg PO BEDTIME insomnia 05/23/23 05/23/23 Unknown History docusate sodium 100 mg capsule 100 mg PO BID PRN constipation 06/27/23 Unknown History ferrous sulfate 325 mg (65 mg 325 mg PO DAILY 06/27/23 Unknown History iron) tablet,delayed release quetiapine 25 mg tablet 25 mg BEDTIME 06/27/23 Unknown History Physical Exam 2 Vital Signs and Narrative: Vital Signs: Last Vital Signs Temp 98.7 F 06/27/23 09:52 Pulse 88 06/27/23 12:14 Resp 19 06/27/23 12:14 BP 123/71 06/27/23 12:14 Pulse Ox 96 06/27/23 12:14 O2 Del Method Room Air 06/27/23 12:14 BMI result Body Mass Index 44.3 Constitutional - Awake and Alert, No apparent distress Eyes - PERRLA, EOMI Cardiovascular - S1S2, RRR, 3+ ble pitting edema Respiratory - Normal lung expansion, Normal respiratory effort, No respiratory distress, CTA bilaterally Gastrointestinal - RUQ/epigastric pain w/o guarding or rebound with +fluid wave , +abd variscosities. +BS Extremities - no calf tenderness bilaterally, no swelling Skin - Warm/Dry Neurological - Alert & oriented x3 Psychological - Appropriate affect Results Labs 06/27/23 10:25 06/27/23 10:25 Labs: Laboratory Results - last 24 hr 06/27/23 06/27/23 06/27/23 10:25 12:15 12:44 MCV 73.6 L MCH 22.8 L MCHC 31.0 RDW 24.4 H Plt Count 63 L D MPV 9.4 Immature Gran % (Auto) 0.6 H Neut % (Auto) 61.9 Lymph % (Auto) 25.4 Sutter % (Auto) 9.8 Eos % (Auto) 1.7 Baso % (Auto) 0.6 Lymph # (Auto) 1.3 Sutter # (Auto) 0.5 Eos # (Auto) 0.1 Baso # (Auto) 0.0 Abs Immat Gran (auto) 0.03 Absolute Neuts (auto) 3.2 Absolute Nucleated RBC 0.000 Nucleated RBC % (auto) 0.0 Anion Gap 10 L Estim Creat Clear Calc 108.0 Estimated GFR > 60 Random Glucose 128 H Calcium 7.5 L D Total Bilirubin 1.3 H Direct Bilirubin 0.8 H AST 243 H ALT 83 H Alkaline Phosphatase 258 H B-Natriuretic Peptide 100 Total Protein 7.0 Albumin 3.0 L Lipase 163 H Urine Color Yellow Urine Appearance Clear Urine pH 5.0 Ur Specific Lavinia <= 1.005 Urine Protein Negative Urine Glucose (UA) Negative Urine Ketones Negative Urine Blood Negative Urine Nitrite Negative Ur Leukocyte Esterase Negative Stool Occult Blood NEGATIVE Imaging Radiologist's Impressions: Impressions Chest X-Ray 06/27/23 10:25 IMPRESSION: Mild prominence of the interstitial markings diffusely. Findings are nonspecific but may represent mild volume overload versus viral infiltrate. Assessment and Plan (1) Rectal bleed: Status: Acute (2) Anemia: Status: Acute (3) CHF (congestive heart failure): Status: Acute (4) Decompensated hepatic cirrhosis: Status: Acute Plan 52 year old male with alcohol dependence, chronic pancreatitis, alcoholic cirrhosis, portal hypertension, chronic thrombocytopenia, portal vein thrombosis, htn, hld, asthma admitted for further management of CHF exacerbation in the setting of decompensated hepatic cirrhosis # acute CHF exacerbation -likely alcoholic heart disease due to decompensated hepatic cirrhosis -CXR with mild interstitial prominence, BNP likely falsely low at 100 due to morbid obesity -clinically, volume overloaded -IV Lasix 40 mg daily -strict I&O -daily weights -cardiac diet -follow renal function, electrolytes -last echocardiogram 05/2023 Echocardiography has shown mild dilation of the LV but overall LV function is normal. He had elevated filling pressures. # decompensated alcoholic cirrhosis -complicated by portal hypertension, chronic thrombocytopenia, portal vein thrombosis, suspected ascites -coag studies pending -abdominal U/S pending -given acute anemia with heme-positive stool per ED provider, IV octreotide and ceftriaxone for SBP prophylaxis -IV Lasix as above, continue spironolactone -gastroenterology consult # alcoholic hepatitis -no jaundice. Total bilirubin 1.3, direct bilirubin 0.8, AST 243, ALT 83, lipase 163 -defer steroids at this time -alcohol cessation strongly advised -GI consult #Acute on chronic thrombocytopenia -due to above -avoid any blood thinners/anticoagulants # acute on chronic microcytic anemia -per ED provider, bedside stool occult blood positive, the lab sample heme- negative -will continue octreotide and ceftriaxone as above prophylactically, pending GI evaluation -iron studies pending. Vitamin B12, folic acid levels pending -H/H above transfusion threshold -follow H/H -monitor on telemetry # alcohol use disorder -monitor on CIWA -initiate phenobarbital per protocol -continue thiamine, folic acid -addiction medicine consult -alcohol cessation strongly advised # hypertension -blood pressure reasonably controlled -continue amlodipine, spironolactone, hydrochlorothiazide. Hold p.o. Lasix # mood disorder -continue home meds # cigarette smoker -smoking cessation strongly advised -patches for NRT #Morbid obesity with BMI greater than 44 related to excess calories as well as fluid overload -weight loss efforts encouraged, IV diuresis as above DVT prophylaxis- SCPs given degree of thrombocytopenia Full code Pt requires inpt stay at least 2 midnights for management of volume overload r/t CHF exacerbation and decompensated cirrhosis requiring IV diuresis, close monitoring of I and O, and expert consultation Quality Stroke Does the patient have a stroke diagnosis?: No VTE Prior VTE?: No VTE Risk Level:: Medical - moderate - high VTE Device Contraindication: N/A - Device Ordered VTE Drug Contraindication: Treatment Not Indicated
[2023-06-27] MEDS: Octreotide Acetate 100 MCG/ML AMPUL 50 MCG IVPUSH (13:57)
[2023-06-27] MEDS: cefTRIAXone sodium 1 GM in 0.9 % Sodium Chloride 50 ML IV (13:58)
[2023-06-27] MEDS: Nicotine 21 MG PATCH.TD24 TRANSDERMA (13:58)
[2023-06-27] MEDS: PHENobarbitaL sodium 130 MG/ML IM ONCE 317.2 MG IM (13:59)
--- NOTE | 2023-06-27 14:06 | P.CNGI_ITS ---
History of Present Illness Data of Consult Service Date: 06/27/23 Requesting physician: Syeda Mason Primary Care Provider: Unknown Physician HPI Reason for consult: Alcoholic cirrhosis, anemia 52 YM with htn, hld, asthma, ETOH abuse complicated by chronic pancreatitis, cirrhosis, portal hypertension, chronic thrombocytopenia, portal vein thrombosis seen at [facility] ED on 06/27/23 with bilateral LE edema. Pt reported bilateral leg swelling, PANDA, orthopnea, PND for the past month and worsening symptoms over the past week. Pt reports compliance with diuretics and has noted abdominal enlargement with abd discomfort and denies weight gain. Pt was hospitalized at [facility] from 05/23- 05/27 with decompensated cirrhosisand chf exacerbation and left AMA on 05/27/23. Pt continues to drink 3-4 24 oz beers every day and stated he drinks to manage withdrawal symptoms. No hx DTs or w/d seizure. He also smokes 1PPD cigarettes. Pt denied fevers, chills, n/v/d, melena, hematochezia, lightheadedness, chest pain. Of note, pt was seen at [facility] 5 times had ultrasound of lower extremities which was unremarkable, Labs in the ED showed slight decrease in H/H with hemoglobin 7.5, hematocrit 24.2%, MCV 73.6. PLT 63. Bedside Stool occult blood positive per ED provider and negative in the lab. Renal function baseline, electrolyte levels normal except for calcium 7.5. Total bilirubin 1.3, direct bilirubin 0.8. AST 243, ALT 83, alkaline phosphatase 258. Troponin 7.8, BNP 100. UA unremarkable. CXR showed mild prominence of the interstitial markings diffusely which are nonspecific possibly representing mild volume overload versus viral infiltrate. Pt was treated with Lasix 40 mg IV and admitted for further management. 06/27/23 ABD US SHOWED: FINDINGS: Ultrasound examination of the 4 quadrants of the abdomen demonstrate no evidence of ascites. Intra-abdominal organs are not evaluated by this exam. 05/23/[address] SCAN SHOWED: 1. Small right pleural effusion with mild right basilar airspace disease more likely due to atelectasis/consolidation. 2. Nodular configuration to the liver with splenomegaly and recanalization of the umbilical vein suggesting underlying portal hypertension. 05/25/23 ECHOCARDIOGRAM SHOWED: Conclusions: - Mildly increased left ventricular cavity size. There is mildly increased left ventricular wall thickness. The left ventricular systolic function is normal. The visually estimated ejection fraction is between 55-60%. - Elevated filling pressures. - Mildly increased right ventricular cavity size. There is normal right ventricular systolic function. - There is a normal trileaflet aortic valve. Elevated gradients due to anemia. - There is mild dilatation of the sinuses of Valsalva measuring 3.80 cm and mild dilatation of the ascending aorta measuring 3.60 cm. Review of Systems 2 Review of Systems: General: No fevers, malaise, unintentional weight loss Cardiovascular: No chest pain, palpitations, or leg edema Respiratory: +orthopnea, +PND. No shortness of breath at rest, wheezing, cough GI: +abd pain. No nausea, vomiting, diarrhea, constipation, melena, hematochezia : No dysuria, hematuria, increased urinary frequency, decreased urinary output MSK: No myalgia, back pain Neuro: No headaches, weakness, paresthesias Skin: No rashes or lesions PMFSH Past Medical History Medical History Pancreatic lesion Peripheral neuropathy Portal vein thrombosis Recurrent acute pancreatitis Joint pain Insomnia Anxiety Asthma Hypertension Depression Alcoholic fatty liver Alcoholic cirrhosis of liver Alcohol abuse Social History Social History Household Members: Family Housing: Apartment Do you presently have visiting nurse or other home services: Yes (2 nurses and in the process of getting a legal job titles. for bp checks and meds) Alcohol intake: current Alcohol intake frequency: 3 or more drinks per day Alcohol type: beer Comment: pt refuse Patient Tobacco Use Status: Former Tobacco user Tobacco use type: Cigarette Cigarette Packs Per Day: 1 Cigarettes Per Day: 20.0 Years Smoked: 33 e-Cigarette/Vaping Use: Currently Using Second Hand Smoke Exposure: No Advance Directives: No Advance Directives Information Provided: No service: No Meds Allergies Allergy/AdvReac Type Severity Reaction Status Date / Time aspirin Allergy Unknown rash Verified 07/19/23 13:42 Shrimp Flavor Allergy Unknown anaphylaxis Uncoded 07/11/23 12:11 Active Medications: Current Medications Acetaminophen (Acetaminophen 325 Mg Tablet) 650 mg PO Q6H PRN PRN Reason: Pain, Mild (Pain Scale 1-3) Furosemide (Furosemide 40 Mg/4 Ml Vial) 40 mg IVPUSH DAILY [facility]; Protocol Octreotide Acetate 500 mcg/ (Sodium Chloride) 501 mls @ 50.1 mls/hr IVCONT .Q10H [facility] Ceftriaxone Sodium 1 gm/ (Sodium Chloride) 50 mls @ 100 mls/hr IV Q24H [facility] Last Admin: 06/27/23 13:58 Dose: 100 mls/hr Nicotine (Nicotine 21 Mg Patch.Td24) 21 mg TRANSDERMA DAILY [facility] Ondansetron HCl (Ondansetron Hcl 4 Mg/2 Ml Vial) 4 mg IVPUSH Q8H PRN PRN Reason: Nausea and Vomiting Pantoprazole Sodium (Pantoprazole Sodium 40 Mg/10 Ml Vial) 40 mg IVPUSH BID@0630,1630 [facility] Pharmacy Consult (Consult Rx Etoh Phenob Im/Po) 1 each MISCELLANE ONCE PRN; Protocol PRN Reason: Consult order Phenobarbital (Phenobarbital 15 Mg Tablet) 45 mg PO BID [facility]; Protocol Stop: 06/29/23 21:01 Phenobarbital (Phenobarbital 30 Mg Tablet) 30 mg PO BID [facility]; Protocol Stop: 07/01/23 21:01 Phenobarbital (Phenobarbital 15 Mg Tablet) 15 mg PO DAILY [facility]; Protocol Stop: 07/03/23 09:01 Phenobarbital Sodium (Phenobarbital Sodium 130 Mg/Ml Vial Im Q3hx2) 237.9 mg IM Q3H [facility]; Protocol Stop: 06/27/23 20:01 Senna (Sennosides 8.6 Mg Tablet) 17.2 mg PO BEDTIME PRN PRN Reason: Constipation Sodium Chloride (0.9 % Sodium Chloride Flush 3 Ml Syringe) 3 ml IVFLUSH QSHIFT [facility] Home Medications Medication Instructions Recorded Confirmed Last Taken Type albuterol sulfate 90 mcg/actuation 2 puff inhalation Q6H PRN wheezing 05/23/23 06/27/23 Unknown History aerosol inhaler (Ventolin HFA) amlodipine 5 mg tablet 5 mg PO DAILY 05/23/23 06/27/23 06/27/23 History cholecalciferol (vitamin D3) 25 25 mcg DAILY 05/23/23 06/27/23 06/27/23 History mcg (1,000 unit) capsule folic acid 1 mg tablet 1 mg PO DAILY 05/23/23 06/27/23 06/27/23 History hydroxyzine HCl 25 mg tablet 25 mg PO BID PRN Anxiety 05/23/23 06/27/23 Unknown History sertraline 50 mg tablet 50 mg PO DAILY 05/23/23 06/27/23 06/27/23 History spironolactone 50 mg tablet 50 mg PO DAILY 05/23/23 06/27/23 06/27/23 History thiamine HCl (vitamin B1) 100 mg 100 mg DAILY 05/23/23 06/27/23 06/27/23 History tablet docusate sodium 100 mg capsule 100 mg PO BID PRN constipation 06/27/23 06/27/23 Unknown History ferrous sulfate 325 mg (65 mg 325 mg PO DAILY 06/27/23 06/27/23 06/27/23 History iron) tablet,delayed release quetiapine 25 mg tablet 25 mg BEDTIME 06/27/23 06/27/23 06/26/23 History Physical Exam 2 Vital Signs: Vital Signs: Last Vital Signs Temp 98.7 F 06/27/23 09:52 Pulse 88 06/27/23 12:14 Resp 19 06/27/23 12:14 BP 123/71 06/27/23 12:14 Pulse Ox 96 06/27/23 12:14 O2 Del Method Room Air 06/27/23 12:14 BMI result Body Mass Index 44.3 Const: General: healthy appearing and no acute distress Nutritional Appearance: obese (morbidly obese) Orientation/consciousness: patient oriented x3 Limitations: language barrier and ambulation with walker HEENT: Head: Yes normal to inspection Ears: hearing grossly normal bilaterally Mouth: Normal oral and palatal mucosa present Eyes: Sclerae: sclerae normal Pupils: Equal, round and reactive pupils present Neck: Neck: Yes normal visual inspection Chest: Chest palpation & inspection: normal inspection of the chest Resp: Effort & Inspection: normal respiratory effort Auscultation: clear to auscultation bilaterally Cardio: Palpation: normal PMI Rate: regular rate Rhythm: regular rhythm Heart sounds: S1 normal heart sound present, S2 normal heart sound present and no murmurs GI: Palpation (GI): Soft to palpation, nontender and No hepatosplenomegaly present Auscultation: normal bowel sounds Rectal Exam - Male: Yes deferred Skin: General skin exam: no rashes or lesions noted and spider nevi (On anterior chest) Neuro: General: patient oriented x3, gait normal and moves all extremities Cranial nerves: Yes Equal, round and reactive pupils present Extrem: General: Yes pedal edema (3+ pitting edema bilaterally) Psych: Appearance: grossly normal Mental Status: mental status grossly normal Results Labs 06/30/23 05:27 06/30/23 05:27 Labs: Short CBC 06/27/23 Range/Units 10:25 WBC 5.2 (4.8-10.8) X10*3/uL Hgb 7.5 L (14.0-18.0) g/dl Hct 24.2 L (42.0-52.0) % Plt Count 63 L D (160-400) X10*3/uL BMP 06/27/23 10:25 Sodium 138 Potassium 3.8 Chloride 107 Carbon Dioxide 25 BUN 10 Creatinine 1.04 Calcium 7.5 L D Liver Function 06/27/23 Range/Units 10:25 Total Bilirubin 1.3 H (0.0-1.0) mg/dL Direct Bilirubin 0.8 H (0.0-0.5) mg/dL AST 243 H (5-37) U/L ALT 83 H (0-40) U/L Alkaline Phosphatase 258 H (39-117) U/L Albumin 3.0 L (3.5-5.0) g/dL Urine 06/27/23 Range/Units 12:15 Urine Color Yellow Urine Appearance Clear Urine pH 5.0 (5.0-9.0) Ur Specific [place] <= 1.005 (1.005-1.025) Urine Protein Negative (Neg-Trace) mg/dL Urine Glucose (UA) Negative (Negative) mg/dL Assessment and Plan (1) Rectal bleed: Status: Resolved (2) Anemia: Status: Acute (3) Decompensated hepatic cirrhosis: Status: Acute Plan 52 YM with htn, hld, asthma, ETOH abuse complicated by chronic pancreatitis, cirrhosis, portal hypertension, chronic thrombocytopenia, portal vein thrombosis admitted to [facility] with bilateral LE edema, PANDA, orthopnea, PND for the past month and worsening symptoms over the past week. Cirrhosis is likely a combination of ETOH abuse and ROCHA related to morbid obesity. Pt continues to drink 3-4 24 oz beers every day and stated he drinks to manage withdrawal symptoms. Labs in the ED showed slight decrease in H/H with hemoglobin 7.5, hematocrit 24.2%, MCV 73.6. PLT 63 and elevated lipase Iron studies suggestive of MORALES Bedside Stool occult blood positive per ED provider and negative in the lab. Hep B and C serologies were negative on previous admission 06/27/23 ABD US SHOWED: demonstrate no evidence of ascites. Intra-abdominal organs are not evaluated by this exam. 05/23/[address] SCAN SHOWED: 1. Small right pleural effusion with mild right basilar airspace disease more likely due to atelectasis/consolidation. 2. Nodular configuration to the liver with splenomegaly and recanalization of the umbilical vein suggesting underlying portal hypertension.1 / Anemia, with probable alcoholic cirhosis with imaging suggestive of sequelae of portal htn. ddx; hemorrhoids, alcoholic gastritis, malnutrition 2/ Edema and SOB possible 2/2 to 1/ above and heart failure and alcoholic heart disease or thiamine def RECOMMENDATIONS: 1. Agree with IV PPI, octreotide and antiemetics, diuresis with lasix and aldactone -careful monitoring of lytes and renal function 2. Monitor CBC twice daily x 24 hrs and transfuse with hgb target of 8 g/dl 3 CIWA protocol 4. EGD and colonoscopy once pt completes DT protocol 5. Complete abdominal US with doppler to FU on PVT (Only limited US reports to check for ascites in [facility]) ADDENDUM: 06/30/23 hospital course: Patient was admitted for acute CHF exacerbation with preserved ejection fraction as well as fluid overloaded due to decompensated alcohol cirrhosis. He was treated with IV Lasix and Aldactone and diuresed well. He was noted to have acute on chronic microcytic anemia with concern for GI bleed related to portal hypertension, was empirically treated with IV ceftriaxone, octreotide, IV Protonix. He had no further gross bleeding and hemoglobin remained stable. Was continued on iron. For acute alcoholic hepatitis patient received symptomatic treatment and labs improved. Alcohol cessation is recommended. For alcohol dependence with withdrawal he was treated with phenobarbital protocol and CIWA is now 0. For hypertension was continued on amlodipine, spironolactone, hydrochlorothiazide. For mood disorder was continued on Seroquel and Zoloft. For morbid obesity weight loss is recommended. For acute hypokalemia and acute hypomagnesemia he received replacement. Patient is feeling better, will be discharged home on increased maintenance Lasix to 40 mg daily, and oral PPI. He should follow up with GI as outpatient and continue low-salt diet and avoid alcohol. Procedures Date of Service Date of Service: 07/24/23
[2023-06-27 14:15] LABS: Amphetamine Screen Urine Not Detected (Not Detect); Barbiturates, Urine Not Detected (Not Detect); Benzodiazepines Screen Urine Not Detected (Not Detect); Cannabinoid Screen Urine Not Detected (Not Detect); Cocaine Screen Urine Not Detected (Not Detect); Fentanyl, urine Not Detected (Not Detect); Opiate Screen Urine Not Detected (Not Detect); Phencyclidine Screen Urine Not Detected (Not Detect)
[2023-06-27 14:18] LABS: Iron 21 mcg/dL (45-160); Percent Iron Saturation 6 % (15-50); Total Iron Binding Capacity 327 mcg/dL (228-428); Unsaturated Iron Binding 306 ug/dL
--- NOTE | 2023-06-27 14:18 | PC.NURSE ---
pt medicated per AUG, phenobarbital protocol initiated, vss, CIWA 1.
[2023-06-27] MEDS: Octreotide Acetate 500 MCG in 0.9 % Sodium Chloride 500 ML 50.1 MCG IVCONT (14:31)
[2023-06-27 14:33] VITALS: BP 122/76; PULSE 89; RESP 18; O2SAT 96
[2023-06-27 14:38] LABS: Ferritin 64 ng/mL (20-250)
[2023-06-27 15:05] LABS: Ethanol 304 mg/dL
--- NOTE | 2023-06-27 15:30 | PHA.MEDREC ---
Pharmacy Consult ? Medication Reconciliation Pharmacy has completed the medication reconciliation. [employer] - Haim spoke with patient via interpreters services and call patient's to confirm medications. patient no longer of HCTZ or trazodone. Ana Gonzalez, PharmD
[2023-06-27 15:42] LABS: Vitamin B12 740 pg/mL (200-900)
--- NOTE | 2023-06-27 15:56 | PC.NURSE ---
RN-RN report sent, transport notified.
[2023-06-27 16:00] VITALS: BP 144/70; PULSE 97; RESP 20; TEMP 36.3; O2SAT 100
[2023-06-27 16:05] LABS: Partial Thromboplastin Time 35.3 SEC (26.0-36.4)
[2023-06-27 16:14] LABS: INTERNATIONAL NORM RATIO 1.5 (0.9-1.1); Prothrombin Time 17.8 SEC (11.1-13.3)
[2023-06-27] MEDS: Pantoprazole Sodium 40 MG/10 ML VIAL IVPUSH (16:36)
[2023-06-27] MEDS: PHENobarbitaL sodium 130 MG/ML VIAL IM Q3Hx2 237.9 MG IM ×2 (16:36→20:02)
[2023-06-27 17:42] LABS: Folate 15.8 ng/mL (> or = 4.0)
[2023-06-27 20:00] VITALS: BP 185/83; PULSE 102; RESP 20; TEMP 36.7; O2SAT 94
[2023-06-28] VITALS (7 sets, daily range): BP systolic 127–186; BP diastolic 56–89; PULSE 81–124; RESP 18–20; TEMP 36.8–37.3; O2SAT 95–99
[2023-06-28] MEDS: Octreotide Acetate 500 MCG in 0.9 % Sodium Chloride 500 ML 50.1 MCG IVCONT ×3 (00:29→20:08)
[2023-06-28] MEDS: 0.9 % Sodium Chloride Flush 3 ML SYRINGE IVFLUSH ×2 (00:29→20:08)
[2023-06-28] MEDS: hydrOXYzine HCL 25 MG TABLET PO (03:14)
[2023-06-28] MEDS: ondansetron HCL 4 MG/2 ML VIAL IVPUSH (03:14)
[2023-06-28] MEDS: PHENobarbitaL sodium 130 MG/ML VIAL IM (04:13)
[2023-06-28] MEDS: Pantoprazole Sodium 40 MG/10 ML VIAL IVPUSH ×2 (05:26→15:49)
[2023-06-28] MEDS: Acetaminophen 325 MG TABLET 650 MG PO ×2 (05:57→16:23)
[2023-06-28 07:38] LABS: MANUAL DIFF FLAG NO
[2023-06-28 07:44] LABS: Basophils Percent Auto 0.3 % (0-2); Eosinophils Percent Auto 0.4 % (0-4); Hematocrit 26.8 % (42.0-52.0); Hemoglobin 8.5 g/dl (14.0-18.0); Imm Gran Abs Auto 0.01 X10*3/uL (0.00-0.03); Imm Gran Pct Auto 0.1 % (0.0-0.4); Lymphocytes Absolute Auto 1.4 X10*3/uL (1.2-4.9); Lymphocytes Percent Auto 20.7 % (20-40); Mean Corpuscular HGB Conc 31.7 g/dl (31.0-36.0); Mean Corpuscular Hemoglobin 23.1 pg (27.0-33.0); Mean Corpuscular Volume 72.8 fL (80.0-98.0); Mean Platelet Volume 9.4 fL (9.4-12.4); Monocytes Absolute Auto 0.7 X10*3/uL (0.1-1.2); Neutrophils Absolute Auto 4.5 x10*3/uL (2.0-8.3); Neutrophils Percent Auto 67.5 % (45-73); Red Blood Count 3.68 X10*6/uL (4.60-5.80); Red Cell Distribution Width 25.6 % (11.0-16.0); White Blood Count 6.7 X10*3/uL (4.8-10.8)
[2023-06-28 07:56] LABS: Platelet Count 67 X10*3/uL (160-400)
[2023-06-28 08:09] LABS: Alanine Aminotransferase 79 U/L (0-40); Albumin Level 3.2 g/dL (3.5-5.0); Alkaline Phosphatase 265 U/L (39-117); Anion Gap 14 (12-20); Aspartate Amino Transferase 162 U/L (5-37); Bilirubin Direct 1.5 mg/dL (0.0-0.5); Bilirubin Total 3.1 mg/dL (0.0-1.0); Blood Urea Nitrogen 10 mg/dL (9-16); Calcium 7.5 mg/dL (8.4-10.2); Carbon Dioxide 30 mmol/L (22-29); Chloride 96 mmol/L (96-108); Creatinine Clr Calc Pharmacy 95.2; Estimated Glomerular Filt Rate > 60; Glucose Random 106 mg/dL (60-115); Potassium 3.6 mmol/L (3.3-5.1); Sodium 136 mmol/L (135-145); Total Protein 7.7 g/dL (6.5-8.0)
[2023-06-28] MEDS: Nicotine 21 MG PATCH.TD24 TRANSDERMA (08:26)
[2023-06-28] MEDS: PHENobarbitaL 15 MG TABLET 45 MG PO ×2 (08:26→20:08)
[2023-06-28] MEDS: amLODIPine Besylate 5 MG TABLET PO (08:26)
[2023-06-28] MEDS: Furosemide 40 MG/4 ML VIAL IVPUSH (08:26)
[2023-06-28] MEDS: Spironolactone 25 MG TABLET 50 MG PO (08:27)
[2023-06-28] MEDS: Sertraline HCL 50 MG TABLET PO (08:27)
[2023-06-28] MEDS: Cholecalciferol (Vitamin D3) 25 MCG TABLET PO (08:27)
[2023-06-28] MEDS: Folic Acid 1 MG TABLET PO (08:27)
[2023-06-28] MEDS: Ferrous Sulfate 324 MG TABLET.DR PO (08:27)
[2023-06-28] MEDS: Thiamine HCL 100 MG TABLET PO (08:27)
[2023-06-28] MEDS: Gabapentin 100 MG CAPSULE PO ×3 (09:59→20:08)
--- NOTE | 2023-06-28 10:28 | HO.PM.IMPN ---
Subjective Subjective Date of Service: 06/28/23 Interval History: leg pain Physical Exam Vital Signs: Vital Signs: Last Vital Signs Temp 98.9 F 06/28/23 08:00 Pulse 101 H 06/28/23 08:00 Resp 20 06/28/23 08:00 BP 144/82 H 06/28/23 08:00 Pulse Ox 95 06/28/23 08:00 O2 Del Method Room Air 06/28/23 08:00 BMI result Body Mass Index 44.3 General: AO X 3, no acute distress Resp: CTA bilateral, no accessory muscles used CVS: S1,S2,RRR, 3+ edema GI: soft, non tender, non distended Neuro: motor grossly intact, alert Psych: appropriate affect, appropriate insight Objective Data Active Medications Acetaminophen (Acetaminophen 325 Mg Tablet) 650 mg PO Q6H PRN PRN Reason: Pain, Mild (Pain Scale 1-3) Last Admin: 06/28/23 05:57 Dose: 650 mg Documented By: ELLEN Albuterol Sulfate (Albuterol Sulfate 90 Mcg 8 Gm Inhaler) 2 puff INHALE Q6H PRN PRN Reason: wheezing Amlodipine Besylate (Amlodipine Besylate 5 Mg Tablet) 5 mg PO DAILY [facility]; Protocol Last Admin: 06/28/23 08:26 Dose: 5 mg Documented By: TRACEY Docusate Sodium (Docusate Sodium 100 Mg Capsule) 100 mg PO BID PRN PRN Reason: constipation Ferrous Sulfate (Ferrous Sulfate 324 Mg Tablet.) 324 mg PO DAILY [facility] Last Admin: 06/28/23 08:27 Dose: 324 mg Documented By: TRACEY Folic Acid (Folic Acid 1 Mg Tablet) 1 mg PO DAILY [facility] Last Admin: 06/28/23 08:27 Dose: 1 mg Documented By: TRACEY Furosemide (Furosemide 40 Mg/4 Ml Vial) 40 mg IVPUSH DAILY [facility]; Protocol Last Admin: 06/28/23 08:26 Dose: 40 mg Documented By: TRACEY Gabapentin (Gabapentin 100 Mg Capsule) 100 mg PO TID [facility] Last Admin: 06/28/23 09:59 Dose: 100 mg Documented By: TRACEY Hydroxyzine HCl (Hydroxyzine Hcl 25 Mg Tablet) 25 mg PO BID PRN PRN Reason: Anxiety Last Admin: 06/28/23 03:14 Dose: 25 mg Documented By: ELLEN Octreotide Acetate 500 mcg/ (Sodium Chloride) 501 mls @ 50.1 mls/hr IVCONT .Q10H [facility] Last Admin: 06/28/23 09:59 Dose: 50 mcg/hr, 50.1 mls/hr Documented By: TRACEY Ceftriaxone Sodium 1 gm/ (Sodium Chloride) 50 mls @ 100 mls/hr IV Q24H [facility] Last Infusion: 06/27/23 14:32 Dose: Infused Documented By: FLY Nicotine (Nicotine 21 Mg Patch.Td24) 21 mg TRANSDERMA DAILY [facility] Last Admin: 06/28/23 08:26 Dose: 21 mg Documented By: TRACEY Ondansetron HCl (Ondansetron Hcl 4 Mg/2 Ml Vial) 4 mg IVPUSH Q8H PRN PRN Reason: Nausea and Vomiting Last Admin: 06/28/23 03:14 Dose: 4 mg Documented By: ELLEN Pantoprazole Sodium (Pantoprazole Sodium 40 Mg/10 Ml Vial) 40 mg IVPUSH BID@0630,1630 [facility] Last Admin: 06/28/23 05:26 Dose: 40 mg Documented By: ELLEN Pharmacy Consult (Consult Rx Etoh Phenob Im/Po) 1 each MISCELLANE ONCE PRN; Protocol PRN Reason: Consult order Phenobarbital (Phenobarbital 15 Mg Tablet) 45 mg PO BID [facility]; Protocol Stop: 06/29/23 21:01 Last Admin: 06/28/23 08:26 Dose: 45 mg Documented By: TRACEY Phenobarbital (Phenobarbital 30 Mg Tablet) 30 mg PO BID [facility]; Protocol Stop: 07/01/23 21:01 Phenobarbital (Phenobarbital 15 Mg Tablet) 15 mg PO DAILY [facility]; Protocol Stop: 07/03/23 09:01 Quetiapine Fumarate (Quetiapine Fumarate 25 Mg Tablet) 25 mg PO BEDTIME [facility] Senna (Sennosides 8.6 Mg Tablet) 17.2 mg PO BEDTIME PRN PRN Reason: Constipation Sertraline HCl (Sertraline Hcl 50 Mg Tablet) 50 mg PO DAILY [facility] Last Admin: 06/28/23 08:27 Dose: 50 mg Documented By: TRACEY Sodium Chloride (0.9 % Sodium Chloride Flush 3 Ml Syringe) 3 ml IVFLUSH QSHIFT [facility] Last Admin: 06/28/23 07:20 Dose: Not Given Documented By: TRACEY Non-Admin Reason: See Note Spironolactone (Spironolactone 25 Mg Tablet) 50 mg PO DAILY [facility]; Protocol Last Admin: 06/28/23 08:27 Dose: 50 mg Documented By: TRACEY Thiamine HCl (Thiamine Hcl 100 Mg Tablet) 100 mg PO DAILY [facility] Last Admin: 06/28/23 08:27 Dose: 100 mg Documented By: TRACEY Vitamin D (Cholecalciferol (Vitamin D3) 25 Mcg Tablet) 25 mcg PO DAILY [facility] Last Admin: 06/28/23 08:27 Dose: 25 mcg Documented By: TRACEY Labs 06/28/23 07:29 06/28/23 07:29 Labs: Laboratory Results - last 24 hr 06/27/23 06/27/23 06/27/23 10:25 12:15 12:44 MCV 73.6 L MCH 22.8 L MCHC 31.0 RDW 24.4 H Plt Count 63 L D MPV 9.4 Immature Gran % (Auto) 0.6 H Neut % (Auto) 61.9 Lymph % (Auto) 25.4 [place] % (Auto) 9.8 Eos % (Auto) 1.7 Baso % (Auto) 0.6 Lymph # (Auto) 1.3 [place] # (Auto) 0.5 Eos # (Auto) 0.1 Baso # (Auto) 0.0 Abs Immat Gran (auto) 0.03 Absolute Neuts (auto) 3.2 Absolute Nucleated RBC 0.000 Nucleated RBC % (auto) 0.0 PT INR APTT Anion Gap 10 L Estim Creat Clear Calc 108.0 Estimated GFR > 60 Random Glucose 128 H Calcium 7.5 L D Iron 21 L TIBC 327 % Saturation 6 L Unsat Iron Binding 306 Ferritin 64 Total Bilirubin 1.3 H Direct Bilirubin 0.8 H AST 243 H ALT 83 H Alkaline Phosphatase 258 H B-Natriuretic Peptide 100 Total Protein 7.0 Albumin 3.0 L Lipase 163 H Vitamin B12 Folate Urine Color Yellow Urine Appearance Clear Urine pH 5.0 Ur Specific [place] <= 1.005 Urine Protein Negative Urine Glucose (UA) Negative Urine Ketones Negative Urine Blood Negative Urine Nitrite Negative Ur Leukocyte Esterase Negative Stool Occult Blood NEGATIVE Urine Opiates Screen Not Detected Urine Fentanyl Screen Not Detected Ur Barbiturates Screen Not Detected Ur Phencyclidine Scrn Not Detected Ur Amphetamines Screen Not Detected U Benzodiazepines Scrn Not Detected Urine Cocaine Screen Not Detected U Marijuana (THC) Screen Not Detected Ethyl Alcohol 304 H* 06/27/23 06/27/23 06/28/23 14:55 15:52 07:29 MCV 72.8 L MCH 23.1 L MCHC 31.7 RDW 25.6 H Plt Count 67 L MPV 9.4 Immature Gran % (Auto) 0.1 Neut % (Auto) 67.5 Lymph % (Auto) 20.7 [place] % (Auto) 11.0 Eos % (Auto) 0.4 Baso % (Auto) 0.3 Lymph # (Auto) 1.4 [place] # (Auto) 0.7 Eos # (Auto) 0.0 Baso # (Auto) 0.0 Abs Immat Gran (auto) 0.01 Absolute Neuts (auto) 4.5 Absolute Nucleated RBC 0.000 Nucleated RBC % (auto) 0.0 PT 17.8 H INR 1.5 H APTT 35.3 Anion Gap 14 Estim Creat Clear Calc 95.2 Estimated GFR > 60 Random Glucose 106 Calcium 7.5 L Iron TIBC % Saturation Unsat Iron Binding Ferritin Total Bilirubin 3.1 H Direct Bilirubin 1.5 H AST 162 H ALT 79 H Alkaline Phosphatase 265 H B-Natriuretic Peptide Total Protein 7.7 Albumin 3.2 L Lipase Vitamin B12 740 Folate 15.8 Urine Color Urine Appearance Urine pH Ur Specific [place] Urine Protein Urine Glucose (UA) Urine Ketones Urine Blood Urine Nitrite Ur Leukocyte Esterase Stool Occult Blood Urine Opiates Screen Urine Fentanyl Screen Ur Barbiturates Screen Ur Phencyclidine Scrn Ur Amphetamines Screen U Benzodiazepines Scrn Urine Cocaine Screen U Marijuana (THC) Screen Ethyl Alcohol Assessment and Plan (1) Decompensated hepatic cirrhosis: Status: Acute Plan 52M PMH alcohol dependence, chronic pancreatitis, alcoholic cirrhosis, portal hypertension, chronic thrombocytopenia, portal vein thrombosis, htn, hld, asthma admitted for further management of CHF exacerbation in the setting of decompensated hepatic cirrhosis acute CHF exacerbation with preserved ef iv lasix, aldactone decompensated alcoholic cirrhosis complicated by portal hypertension, chronic thrombocytopenia, portal vein thrombosis, suspected ascites given acute anemia with heme-positiver, IV octreotide and ceftriaxone for SBP prophylaxis gastroenterology following acute alcoholic hepatitis no jaundice. Total bilirubin 1.3, direct bilirubin 0.8, AST 243, ALT 83, lipase 163 defer steroids at this time acute on chronic microcytic anemia bedside stool occult blood positive, the lab sample heme-negative continue octreotide and ceftriaxone as above prophylactically monitor hgb ?inpatient egd alcohol dependence with withdrawal phonobarb, ciwa hypertension continue amlodipine, spironolactone, hydrochlorothiazide mood disorder seroquel, zoloft cigarette smoker smoking cessation strongly advised patches for NRT Morbid obesity with BMI greater than 44 related to excess calories weight loss efforts encouraged DVT prophylaxis- SCPs given degree of thrombocytopenia Full code reason for continued hospitalization:iv diuresis Quality Stroke Does the patient have a stroke diagnosis?: No VTE Prior VTE?: No VTE Risk Level:: Medical - moderate - high VTE Device Contraindication: N/A - Device Ordered VTE Drug Contraindication: Treatment Not Indicated
[2023-06-28] MEDS: cefTRIAXone sodium 1 GM in 0.9 % Sodium Chloride 50 ML IV (12:05)
--- NOTE | 2023-06-28 12:39 | MHC.CM.PN ---
[facility] conducted w/Pt and flatwork assembler services. Detailed information assisted by [facility] RN Lonnie Siegel via phone. Pt reports he lives alone and that his SO occasionally stays w/him (but she mostly cares for her parents). He does not drive, but has [facility] transport services for when he needs to get to his appts. He owns a walker (wheeled), shower chair and grab bars in the [place]. Hi PCP is Dr. Nhi Brasher at [facility] in [place]. He has both a psychiatrist and a therapist at [address] [place] [address]. Mounika Villela and his therapist's name (he believes) is Vielka. He attends [facility] adult day care 9am-1pm, offered daily; the transportation service calls him every morning and asks if he plans on attending, if he does, they transport him both ways, if he does not, they call the next day, etc. He has fci services through [employer] and [facility] nurse Lonnie Siegel indicates that if in-home PT is recommended at time of D/C, then he would approve it (communicated Pt's stated previous functional in-home challenges, and visibly noticeable BLE edema). Pt also has compression stockings he wears at home as well. Pt also has [facility] in his home through [facility] as well. [employer] services through [employer] are currently being reviewed through [facility] for approval. Pt will require transportation to be set up for him at time of D/C, as he does not have a ride. D/C plan is home w/return to service through [employer] for continued fci care and potentially in-home PT to address declining functionality and BLLE edema. CM to follow.
--- NOTE | 2023-06-28 17:30 | HO.ADDICTPRO ---
Subjective Subjective Date of Service: 06/28/23 Reason For Visit: decompensated cirrhosis CHF GI bleed Interim History: Patient is a 52 year old Speaking male with liver cirrhosis, CHF and alcohol use disorder. Currently medically admitted with GI bleed and decomensated cirrhosis. Patient know ACS via previous admission. Patient very forthcoming with alcohol use and ambivalence with changing this. He drinks 6 tall boys daily. He has decreased amount over the years as he states at one time he was drinking a case of beer daily. He understands ongoing medical issues that are a result of alcohol. Review of Systems Medical Review of Systems: unchanged Mental Status Exam Mental Status Exam Patient Appearance: Appropriate Level of Consciousness: Awake and Appropriate Patient Behavior: Appropriate and Talkative Mood Description: Calm Affect Description: Calm Speech Pattern: Clear Thought Content: positive for Intact Judgement: Fair Diagnostics Vital Signs (24Hr): Vital Signs - 24 hr 06/27/23 20:00 06/28/23 00:00 06/28/23 03:18 Temperature 98.1 F 98.2 F 99.1 F Pulse Rate 102 H 124 H 92 Respiratory Rate 20 20 18 Blood Pressure 185/83 H 186/89 H 141/58 H Pulse Oximetry 94 99 96 Oxygen Delivery Method Room Air Room Air Room Air 06/28/23 08:00 06/28/23 11:25 06/28/23 14:54 Temperature 98.9 F 99.1 F 99.2 F Pulse Rate 101 H 100 88 Respiratory Rate 20 20 20 Blood Pressure 144/82 H 157/75 H 127/56 L Pulse Oximetry 95 97 99 Oxygen Delivery Method Room Air Room Air Room Air BMI result Body Mass Index 44.3 Labs 06/29/23 06:46 06/29/23 06:46 Labs: Laboratory Results - last 48 hr 06/27/23 06/27/23 06/27/23 10:25 12:15 12:44 WBC 5.2 RBC 3.29 L Hgb 7.5 L Hct 24.2 L MCV 73.6 L MCH 22.8 L MCHC 31.0 RDW 24.4 H Plt Count 63 L D MPV 9.4 Immature Gran % (Auto) 0.6 H Neut % (Auto) 61.9 Lymph % (Auto) 25.4 [place] % (Auto) 9.8 Eos % (Auto) 1.7 Baso % (Auto) 0.6 Lymph # (Auto) 1.3 [place] # (Auto) 0.5 Eos # (Auto) 0.1 Baso # (Auto) 0.0 Abs Immat Gran (auto) 0.03 Absolute Neuts (auto) 3.2 Absolute Nucleated RBC 0.000 Nucleated RBC % (auto) 0.0 PT INR APTT Sodium 138 Potassium 3.8 Chloride 107 Carbon Dioxide 25 Anion Gap 10 L BUN 10 Creatinine 1.04 Estim Creat Clear Calc 108.0 Estimated GFR > 60 Random Glucose 128 H Calcium 7.5 L D Iron 21 L TIBC 327 % Saturation 6 L Unsat Iron Binding 306 Ferritin 64 Total Bilirubin 1.3 H Direct Bilirubin 0.8 H AST 243 H ALT 83 H Alkaline Phosphatase 258 H Troponin I High Sens 7.6 B-Natriuretic Peptide 100 Total Protein 7.0 Albumin 3.0 L Lipase 163 H Vitamin B12 Folate Urine Color Yellow Urine Appearance Clear Urine pH 5.0 Ur Specific [place] <= 1.005 Urine Protein Negative Urine Glucose (UA) Negative Urine Ketones Negative Urine Blood Negative Urine Nitrite Negative Ur Leukocyte Esterase Negative Stool Occult Blood NEGATIVE Urine Opiates Screen Not Detected Urine Fentanyl Screen Not Detected Ur Barbiturates Screen Not Detected Ur Phencyclidine Scrn Not Detected Ur Amphetamines Screen Not Detected U Benzodiazepines Scrn Not Detected Urine Cocaine Screen Not Detected U Marijuana (THC) Screen Not Detected Ethyl Alcohol 304 H* 06/27/23 06/27/23 06/28/23 14:55 15:52 07:29 WBC 6.7 RBC 3.68 L Hgb 8.5 L Hct 26.8 L MCV 72.8 L MCH 23.1 L MCHC 31.7 RDW 25.6 H Plt Count 67 L MPV 9.4 Immature Gran % (Auto) 0.1 Neut % (Auto) 67.5 Lymph % (Auto) 20.7 [place] % (Auto) 11.0 Eos % (Auto) 0.4 Baso % (Auto) 0.3 Lymph # (Auto) 1.4 [place] # (Auto) 0.7 Eos # (Auto) 0.0 Baso # (Auto) 0.0 Abs Immat Gran (auto) 0.01 Absolute Neuts (auto) 4.5 Absolute Nucleated RBC 0.000 Nucleated RBC % (auto) 0.0 PT 17.8 H INR 1.5 H APTT 35.3 Sodium 136 Potassium 3.6 Chloride 96 Carbon Dioxide 30 H Anion Gap 14 BUN 10 Creatinine 1.18 Estim Creat Clear Calc 95.2 Estimated GFR > 60 Random Glucose 106 Calcium 7.5 L Iron TIBC % Saturation Unsat Iron Binding Ferritin Total Bilirubin 3.1 H Direct Bilirubin 1.5 H AST 162 H ALT 79 H Alkaline Phosphatase 265 H Troponin I High Sens B-Natriuretic Peptide Total Protein 7.7 Albumin 3.2 L Lipase Vitamin B12 740 Folate 15.8 Urine Color Urine Appearance Urine pH Ur Specific [place] Urine Protein Urine Glucose (UA) Urine Ketones Urine Blood Urine Nitrite Ur Leukocyte Esterase Stool Occult Blood Urine Opiates Screen Urine Fentanyl Screen Ur Barbiturates Screen Ur Phencyclidine Scrn Ur Amphetamines Screen U Benzodiazepines Scrn Urine Cocaine Screen U Marijuana (THC) Screen Ethyl Alcohol Imaging Radiology Impressions: ITS Impressions Chest X-Ray 06/27/23 10:25 IMPRESSION: Mild prominence of the interstitial markings diffusely. Findings are nonspecific but may represent mild volume overload versus viral infiltrate. Abdomen Ultrasound 06/27/23 13:15 IMPRESSION: No ascites. Medications Medications Current Medications Acetaminophen (Acetaminophen 325 Mg Tablet) 650 mg PO Q6H PRN PRN Reason: Pain, Mild (Pain Scale 1-3) Last Admin: 06/28/23 16:23 Dose: 650 mg Albuterol Sulfate (Albuterol Sulfate 90 Mcg 8 Gm Inhaler) 2 puff INHALE Q6H PRN PRN Reason: wheezing Amlodipine Besylate (Amlodipine Besylate 5 Mg Tablet) 5 mg PO DAILY [facility]; Protocol Last Admin: 06/28/23 08:26 Dose: 5 mg Docusate Sodium (Docusate Sodium 100 Mg Capsule) 100 mg PO BID PRN PRN Reason: constipation Ferrous Sulfate (Ferrous Sulfate 324 Mg Tablet.Dr) 324 mg PO DAILY [facility] Last Admin: 06/28/23 08:27 Dose: 324 mg Folic Acid (Folic Acid 1 Mg Tablet) 1 mg PO DAILY [facility] Last Admin: 06/28/23 08:27 Dose: 1 mg Furosemide (Furosemide 40 Mg/4 Ml Vial) 40 mg IVPUSH DAILY [facility]; Protocol Last Admin: 06/28/23 08:26 Dose: 40 mg Gabapentin (Gabapentin 100 Mg Capsule) 100 mg PO TID [facility] Last Admin: 06/28/23 15:49 Dose: 100 mg Hydroxyzine HCl (Hydroxyzine Hcl 25 Mg Tablet) 25 mg PO BID PRN PRN Reason: Anxiety Last Admin: 06/28/23 03:14 Dose: 25 mg Octreotide Acetate 500 mcg/ (Sodium Chloride) 501 mls @ 50.1 mls/hr IVCONT .Q10H [facility] Last Admin: 06/28/23 09:59 Dose: 50 mcg/hr, 50.1 mls/hr Ceftriaxone Sodium 1 gm/ (Sodium Chloride) 50 mls @ 100 mls/hr IV Q24H [facility] Last Infusion: 06/28/23 13:27 Dose: Infused Nicotine (Nicotine 21 Mg Patch.Td24) 21 mg TRANSDERMA DAILY [facility] Last Admin: 06/28/23 08:26 Dose: 21 mg Ondansetron HCl (Ondansetron Hcl 4 Mg/2 Ml Vial) 4 mg IVPUSH Q8H PRN PRN Reason: Nausea and Vomiting Last Admin: 06/28/23 03:14 Dose: 4 mg Pantoprazole Sodium (Pantoprazole Sodium 40 Mg/10 Ml Vial) 40 mg IVPUSH BID@0630,1630 [facility] Last Admin: 06/28/23 15:49 Dose: 40 mg Pharmacy Consult (Consult Rx Etoh Phenob Im/Po) 1 each MISCELLANE ONCE PRN; Protocol PRN Reason: Consult order Phenobarbital (Phenobarbital 15 Mg Tablet) 45 mg PO BID [facility]; Protocol Stop: 06/29/23 21:01 Last Admin: 06/28/23 08:26 Dose: 45 mg Phenobarbital (Phenobarbital 30 Mg Tablet) 30 mg PO BID [facility]; Protocol Stop: 07/01/23 21:01 Phenobarbital (Phenobarbital 15 Mg Tablet) 15 mg PO DAILY [facility]; Protocol Stop: 07/03/23 09:01 Quetiapine Fumarate (Quetiapine Fumarate 25 Mg Tablet) 25 mg PO BEDTIME [facility] Senna (Sennosides 8.6 Mg Tablet) 17.2 mg PO BEDTIME PRN PRN Reason: Constipation Sertraline HCl (Sertraline Hcl 50 Mg Tablet) 50 mg PO DAILY [facility] Last Admin: 06/28/23 08:27 Dose: 50 mg Sodium Chloride (0.9 % Sodium Chloride Flush 3 Ml Syringe) 3 ml IVFLUSH QSHIFT [facility] Last Admin: 06/28/23 12:19 Dose: Not Given Spironolactone (Spironolactone 25 Mg Tablet) 50 mg PO DAILY [facility]; Protocol Last Admin: 06/28/23 08:27 Dose: 50 mg Thiamine HCl (Thiamine Hcl 100 Mg Tablet) 100 mg PO DAILY [facility] Last Admin: 06/28/23 08:27 Dose: 100 mg Vitamin D (Cholecalciferol (Vitamin D3) 25 Mcg Tablet) 25 mcg PO DAILY [facility] Last Admin: 06/28/23 08:27 Dose: 25 mcg Allergies Allergies Allergy/AdvReac Type Severity Reaction Status Date / Time aspirin Allergy Unknown rash Verified 06/27/23 10:09 Shrimp Flavor Allergy Unknown anaphylaxis Uncoded 05/23/23 10:05 Assessment & Plan Assessment & Plan (1) Alcohol use disorder, severe, dependence: Status: Acute Code(s): F10.20 - Alcohol dependence, uncomplicated Assessment and Plan: Patient appears to be in contemplation stage/ambivalence of change. Aware of risks related to ongoing alcohol consumption, has the resources and support, however does not feel capable of initialing change Encouraged patient to consider reducing use over time. Reducing by one 24 oz beer every 2 weeks. He understands the goal is zero due to chronic medical issues, however, complete abstinence seems unreachable for him (from his perspective). discussed medications for alcohol use disorder provided information regarding support groups which can be accesses via zoom on his phone--and in Danish Total time managing care of this patient today __40__ minutes.
[2023-06-28] MEDS: QUEtiapine Fumarate 25 MG TABLET PO (20:08)
[2023-06-29] MEDS: Albuterol Sulfate 90 MCG 8 GM INHALER 2 PUFF INHALE (00:40)
[2023-06-29 03:41] VITALS: BP 118/61; PULSE 88; RESP 18; TEMP 36.6; O2SAT 97
[2023-06-29] MEDS: Octreotide Acetate 500 MCG in 0.9 % Sodium Chloride 500 ML 50.1 MCG IVCONT (06:05)
[2023-06-29] MEDS: Pantoprazole Sodium 40 MG/10 ML VIAL IVPUSH ×2 (06:05→15:59)
[2023-06-29 07:37] VITALS: BP 140/72; PULSE 90; RESP 20; TEMP 37.2; O2SAT 97
[2023-06-29 07:38] LABS: Hematocrit 26.2 % (42.0-52.0); Hemoglobin 8.4 g/dl (14.0-18.0); Mean Corpuscular HGB Conc 32.1 g/dl (31.0-36.0); Mean Corpuscular Hemoglobin 24.3 pg (27.0-33.0); Mean Corpuscular Volume 75.7 fL (80.0-98.0); Platelet Count 55 X10*3/uL (160-400); Red Blood Count 3.46 X10*6/uL (4.60-5.80); Red Cell Distribution Width 26.8 % (11.0-16.0); White Blood Count 4.9 X10*3/uL (4.8-10.8)
[2023-06-29 07:56] LABS: Alanine Aminotransferase 57 U/L (0-40); Albumin Level 2.9 g/dL (3.5-5.0); Alkaline Phosphatase 230 U/L (39-117); Anion Gap 12 (12-20); Aspartate Amino Transferase 100 U/L (5-37); Bilirubin Direct 1.4 mg/dL (0.0-0.5); Bilirubin Total 2.4 mg/dL (0.0-1.0); Blood Urea Nitrogen 8 mg/dL (9-16); Calcium 7.1 mg/dL (8.4-10.2); Carbon Dioxide 28 mmol/L (22-29); Chloride 101 mmol/L (96-108); Creatinine Clr Calc Pharmacy 120.8; Estimated Glomerular Filt Rate > 60; Glucose Fasting 164 mg/dL (60-99); Magnesium 1.4 mg/dL (1.6-2.6); Potassium 3.1 mmol/L (3.3-5.1); Sodium 138 mmol/L (135-145); Total Protein 7.2 g/dL (6.5-8.0)
[2023-06-29] MEDS: Nicotine 21 MG PATCH.TD24 TRANSDERMA (09:29)
[2023-06-29] MEDS: Spironolactone 25 MG TABLET 50 MG PO (09:30)
[2023-06-29] MEDS: Folic Acid 1 MG TABLET PO (09:30)
[2023-06-29] MEDS: Ferrous Sulfate 324 MG TABLET.DR PO (09:30)
[2023-06-29] MEDS: Cholecalciferol (Vitamin D3) 25 MCG TABLET PO (09:30)
[2023-06-29] MEDS: amLODIPine Besylate 5 MG TABLET PO (09:30)
[2023-06-29] MEDS: Thiamine HCL 100 MG TABLET PO (09:30)
[2023-06-29] MEDS: Gabapentin 100 MG CAPSULE PO ×3 (09:30→20:16)
[2023-06-29] MEDS: Furosemide 40 MG/4 ML VIAL IVPUSH (09:30)
[2023-06-29] MEDS: PHENobarbitaL 15 MG TABLET 45 MG PO ×2 (09:30→20:16)
[2023-06-29] MEDS: Magnesium Sulfate/H2O 2 GM/50 ML PIGGYBACK IV (09:30)
[2023-06-29] MEDS: Sertraline HCL 50 MG TABLET PO (09:30)
[2023-06-29] MEDS: 0.9 % Sodium Chloride Flush 3 ML SYRINGE IVFLUSH ×3 (09:31→20:17)
--- NOTE | 2023-06-29 10:26 | P.PNIM_ITS ---
Subjective Subjective Date of Service: 06/29/23 Interval History: leg pain improved Physical Exam 2 Vital Signs: Vital Signs: Last Vital Signs Temp 99.0 F 06/29/23 07:37 Pulse 90 06/29/23 07:37 Resp 20 06/29/23 07:37 BP 140/72 H 06/29/23 07:37 Pulse Ox 97 06/29/23 07:37 O2 Del Method Room Air 06/29/23 07:37 BMI result Body Mass Index 44.3 General: AO X 3, no acute distress Resp: CTA bilateral, no accessory muscles used CVS: S1,S2,RRR, 3+ edema GI: soft, non tender, non distended Neuro: motor grossly intact, alert Psych: appropriate affect, appropriate insight Objective Data Active Medications Acetaminophen (Acetaminophen 325 Mg Tablet) 650 mg PO Q6H PRN PRN Reason: Pain, Mild (Pain Scale 1-3) Last Admin: 06/28/23 16:23 Dose: 650 mg Documented By: TRACEY Albuterol Sulfate (Albuterol Sulfate 90 Mcg 8 Gm Inhaler) 2 puff INHALE Q6H PRN PRN Reason: wheezing Last Admin: 06/29/23 00:40 Dose: 2 puff Documented By: RUSTY Amlodipine Besylate (Amlodipine Besylate 5 Mg Tablet) 5 mg PO DAILY [facility]; Protocol Last Admin: 06/29/23 09:30 Dose: 5 mg Documented By: OMKAR Docusate Sodium (Docusate Sodium 100 Mg Capsule) 100 mg PO BID PRN PRN Reason: constipation Ferrous Sulfate (Ferrous Sulfate 324 Mg Tablet.Dr) 324 mg PO DAILY [facility] Last Admin: 06/29/23 09:30 Dose: 324 mg Documented By: OMKAR Folic Acid (Folic Acid 1 Mg Tablet) 1 mg PO DAILY [facility] Last Admin: 06/29/23 09:30 Dose: 1 mg Documented By: MOKAR Furosemide (Furosemide 40 Mg/4 Ml Vial) 40 mg IVPUSH DAILY [facility]; Protocol Last Admin: 06/29/23 09:30 Dose: 40 mg Documented By: OMKAR Gabapentin (Gabapentin 100 Mg Capsule) 100 mg PO TID [facility] Last Admin: 06/29/23 09:30 Dose: 100 mg Documented By: OMKAR Hydroxyzine HCl (Hydroxyzine Hcl 25 Mg Tablet) 25 mg PO BID PRN PRN Reason: Anxiety Last Admin: 06/28/23 03:14 Dose: 25 mg Documented By: ELLEN Octreotide Acetate 500 mcg/ (Sodium Chloride) 501 mls @ 50.1 mls/hr IVCONT .Q10H [facility] Last Admin: 06/29/23 06:05 Dose: 50 mcg/hr, 50.1 mls/hr Documented By: RUSTY Ceftriaxone Sodium 1 gm/ (Sodium Chloride) 50 mls @ 100 mls/hr IV Q24H [facility] Last Infusion: 06/28/23 13:27 Dose: Infused Documented By: SOFFAElena Nicotine (Nicotine 21 Mg Patch.Td24) 21 mg TRANSDERMA DAILY [facility] Last Admin: 06/29/23 09:29 Dose: 21 mg Documented By: OMKAR Ondansetron HCl (Ondansetron Hcl 4 Mg/2 Ml Vial) 4 mg IVPUSH Q8H PRN PRN Reason: Nausea and Vomiting Last Admin: 06/28/23 03:14 Dose: 4 mg Documented By: ELLEN Pantoprazole Sodium (Pantoprazole Sodium 40 Mg/10 Ml Vial) 40 mg IVPUSH BID@0630,1630 [facility] Last Admin: 06/29/23 06:05 Dose: 40 mg Documented By: RUSTY Pharmacy Consult (Consult Rx Etoh Phenob Im/Po) 1 each MISCELLANE ONCE PRN; Protocol PRN Reason: Consult order Phenobarbital (Phenobarbital 15 Mg Tablet) 45 mg PO BID [facility]; Protocol Stop: 06/29/23 21:01 Last Admin: 06/29/23 09:30 Dose: 45 mg Documented By: OMKAR Phenobarbital (Phenobarbital 30 Mg Tablet) 30 mg PO BID [facility]; Protocol Stop: 07/01/23 21:01 Phenobarbital (Phenobarbital 15 Mg Tablet) 15 mg PO DAILY [facility]; Protocol Stop: 07/03/23 09:01 Quetiapine Fumarate (Quetiapine Fumarate 25 Mg Tablet) 25 mg PO BEDTIME [facility] Last Admin: 06/28/23 20:08 Dose: 25 mg Documented By: RUSTY Senna (Sennosides 8.6 Mg Tablet) 17.2 mg PO BEDTIME PRN PRN Reason: Constipation Sertraline HCl (Sertraline Hcl 50 Mg Tablet) 50 mg PO DAILY [facility] Last Admin: 06/29/23 09:30 Dose: 50 mg Documented By: OMKAR Sodium Chloride (0.9 % Sodium Chloride Flush 3 Ml Syringe) 3 ml IVFLUSH QSHIFT [facility] Last Admin: 06/29/23 09:31 Dose: 3 ml Documented By: OMKAR Spironolactone (Spironolactone 25 Mg Tablet) 50 mg PO DAILY [facility]; Protocol Last Admin: 06/29/23 09:30 Dose: 50 mg Documented By: OMKAR Thiamine HCl (Thiamine Hcl 100 Mg Tablet) 100 mg PO DAILY [facility] Last Admin: 06/29/23 09:30 Dose: 100 mg Documented By: OMKAR Vitamin D (Cholecalciferol (Vitamin D3) 25 Mcg Tablet) 25 mcg PO DAILY [facility] Last Admin: 06/29/23 09:30 Dose: 25 mcg Documented By: OMKAR Labs 06/29/23 06:46 06/29/23 06:46 Labs: Laboratory Results - last 24 hr 06/29/23 06:46 MCV 75.7 L MCH 24.3 L MCHC 32.1 RDW 26.8 H Plt Count 55 L MPV Not Reportable Absolute Nucleated RBC 0.000 Nucleated RBC % (auto) 0.0 Anion Gap 12 Estim Creat Clear Calc 120.8 Estimated GFR > 60 Fasting Glucose 164 H Calcium 7.1 L Magnesium 1.4 L* Total Bilirubin 2.4 H Direct Bilirubin 1.4 H AST 100 H ALT 57 H Alkaline Phosphatase 230 H Total Protein 7.2 Albumin 2.9 L Assessment and Plan (1) Decompensated hepatic cirrhosis: Status: Acute Plan 52M PMH alcohol dependence, chronic pancreatitis, alcoholic cirrhosis, portal hypertension, chronic thrombocytopenia, portal vein thrombosis, htn, hld, asthma admitted for further management of CHF exacerbation in the setting of decompensated hepatic cirrhosis acute CHF exacerbation with preserved ef iv lasix, aldactone decompensated alcoholic cirrhosis complicated by portal hypertension, chronic thrombocytopenia, portal vein thrombosis, suspected ascites given acute anemia with heme-positive and ceftriaxone for SBP prophylaxis gastroenterology following acute alcoholic hepatitis no jaundice. Total bilirubin 1.3, direct bilirubin 0.8, AST 243, ALT 83, lipase 163 defer steroids at this time acute on chronic microcytic anemia bedside stool occult blood positive, the lab sample heme-negative continue ceftriaxone as above prophylactically monitor hgb ?inpatient egd alcohol dependence with withdrawal phonobarb, ciwa hypertension continue amlodipine, spironolactone, hydrochlorothiazide mood disorder seroquel, zoloft cigarette smoker smoking cessation strongly advised patches for NRT Morbid obesity with BMI greater than 44 related to excess calories weight loss efforts encouraged DVT prophylaxis- SCPs given degree of thrombocytopenia Full code reason for continued hospitalization:iv diuresis Quality Stroke Does the patient have a stroke diagnosis?: No VTE Prior VTE?: No VTE Risk Level:: Medical - moderate - high VTE Device Contraindication: N/A - Device Ordered VTE Drug Contraindication: Treatment Not Indicated
[2023-06-29 10:56] VITALS: BP 132/71; PULSE 95; RESP 20; TEMP 37.3; O2SAT 95
[2023-06-29] MEDS: cefTRIAXone sodium 1 GM in 0.9 % Sodium Chloride 50 ML IV (12:47)
[2023-06-29] MEDS: Potassium Chloride ER 20 MEQ TAB.ER.PRT 40 MEQ PO (12:47)
[2023-06-29 15:58] VITALS: BP 137/74; PULSE 105; RESP 20; TEMP 36.7; O2SAT 97
[2023-06-29 19:28] VITALS: BP 153/77; PULSE 103; RESP 20; TEMP 37.2; O2SAT 99
[2023-06-29] MEDS: QUEtiapine Fumarate 25 MG TABLET PO (20:16)
[2023-06-29 23:39] VITALS: BP 138/49; PULSE 94; RESP 20; TEMP 37.2; O2SAT 96
[2023-06-30 03:21] VITALS: BP 137/56; PULSE 94; RESP 20; TEMP 37.2; O2SAT 97
[2023-06-30] MEDS: Pantoprazole Sodium 40 MG/10 ML VIAL IVPUSH (06:01)
[2023-06-30 06:09] LABS: Hematocrit 25.5 % (42.0-52.0); Hemoglobin 7.9 g/dl (14.0-18.0)
[2023-06-30 06:10] LABS: Mean Corpuscular Hemoglobin 23.5 pg (27.0-33.0); Mean Corpuscular Volume 75.9 fL (80.0-98.0); Red Blood Count 3.36 X10*6/uL (4.60-5.80); Red Cell Distribution Width 27.3 % (11.0-16.0); White Blood Count 5.5 X10*3/uL (4.8-10.8)
[2023-06-30 06:13] LABS: PLT ABN DIST 1; Platelet Count 66 X10*3/uL (160-400)
[2023-06-30 06:24] LABS: Anion Gap 9 (12-20); Blood Urea Nitrogen 7 mg/dL (9-16); Calcium 7.3 mg/dL (8.4-10.2); Carbon Dioxide 29 mmol/L (22-29); Chloride 104 mmol/L (96-108); Creatinine Clr Calc Pharmacy 147.9; Estimated Glomerular Filt Rate > 60; Glucose Fasting 87 mg/dL (60-99); Magnesium 1.6 mg/dL (1.6-2.6); Potassium 3.2 mmol/L (3.3-5.1); Sodium 139 mmol/L (135-145)
[2023-06-30 07:15] VITALS: BP 127/60; PULSE 90; RESP 16; TEMP 37.5; O2SAT 97
--- NOTE | 2023-06-30 09:11 | PM.DS ---
DS: Providers Provider Date of Service: 06/30/23 Date of admission: 06/27/23 12:54 Primary care physician: Nhi So Consults: 06/27/23 12:57 Consult to Gastroenterology Routine Consulting Provider: Moris Morris Reason for consultation: decompensated hepatic cirrhosis, alcoholic hepatitis 06/27/23 13:02 Addiction Medicine Routine Consulting Provider: Addiction Covering Reason for consultation: etoh dependence DS: Diagnosis Discharge Diagnosis (1) Alcohol use disorder, severe, dependence: Status: Acute DS: Summary Hospital Course Hospital Course: from initial hpi: 52 year old male with alcohol dependence, chronic pancreatitis, alcoholic cirrhosis, portal hypertension, chronic thrombocytopenia, portal vein thrombosis, htn, hld, asthma presents to the ED for evaluation of ble edema. He states this has been ongoing for over a month with associated PANDA, orthopnea, PND worsening over the last week. Does not feel he has gained weight, but feels his abdomen has enlarged. Reports compliance with diuretics. There is also upper abd discomfort. [place] [facility] [place] due to decompensated cirrhosis w/ chf exacerbation. He continues drinking 3-4 24 oz beers on a daily basis, states he continues drinking to manage withdrawal symptoms. No hx DTs or w/d seizure. He also smokes 1PPD cigarettes. Denies any fevers, chills, n/v/d, melena, hematochezia, lightheadedness, chest pain. On arrival, VSS. No leukocytosis/leukopenia. Slight drop in H/H with hemoglobin 7.5, hematocrit 24.2%, MCV 73.6. PLT 63. Bedside Stool occult blood positive per ED provider. Renal function baseline, electrolyte levels normal except for calcium 7.5. Total bilirubin 1.3, direct bilirubin 0.8. AST 243, ALT 83, alkaline phosphatase 258. Troponin 7.8, BNP 100. UA unremarkable. CXR shows mild prominence of the interstitial markings diffusely which are nonspecific possibly representing mild volume overload versus viral infiltrate. In the ED, given 40 mg IV Lasix. hospital course: Patient was admitted for acute CHF exacerbation with preserved ejection fraction as well as fluid overloaded due to decompensated alcohol cirrhosis. He was treated with IV Lasix and Aldactone and diuresed well. He was noted to have acute on chronic microcytic anemia with concern for GI bleed related to portal hypertension, was empirically treated with IV ceftriaxone, octreotide, IV Protonix. He had no further gross bleeding and hemoglobin remained stable. He was seen by Gastroenterology who felt this was likely hemorrhoidal bleed and can follow up outpatient. Was continued on iron. For acute alcoholic hepatitis patient received symptomatic treatment and labs improved. Alcohol cessation is recommended. For alcohol dependence with withdrawal he was treated with phenobarbital protocol and CIWA is now 0. For hypertension was continued on amlodipine, spironolactone, hydrochlorothiazide. For mood disorder was continued on Seroquel and Zoloft. For morbid obesity weight loss is recommended. For acute hypokalemia and acute hypomagnesemia he received replacement. Patient is feeling better, will be discharged home on increased maintenance Lasix to 40 mg daily, and oral PPI. He should follow up with GI as outpatient and continue low-salt diet and avoid alcohol. Time Attestation Discharge coordination time: Greater than 30 minutes Quality: Safe Use of Opioids Does Pt have an Active Cancer Diagnosis on the Problem List?: No Quality: Stroke Does the patient have a stroke diagnosis?: No Physical Exam Vital Signs: Vital Signs: Last Vital Signs Temp 99.5 F 06/30/23 07:15 Pulse 90 06/30/23 07:15 Resp 16 06/30/23 07:15 BP 127/60 06/30/23 07:15 Pulse Ox 97 06/30/23 07:15 O2 Del Method Room Air 06/30/23 07:15 BMI result Body Mass Index 44.3 General: AO X 3, no acute distress Resp: CTA bilateral, no accessory muscles used CVS: S1,S2,RRR, 1+ edema GI: soft, non tender, non distended Neuro: motor grossly intact, alert Psych: appropriate affect, appropriate insight DS: Data Data Completed and Pending Labs on day of discharge: Laboratory Results - last 24 hr 06/30/23 05:27 WBC 5.5 RBC 3.36 L Hgb 7.9 L Hct 25.5 L MCV 75.9 L MCH 23.5 L MCHC 31.0 RDW 27.3 H Plt Count 66 L MPV Not Reportable Absolute Nucleated RBC 0.000 Nucleated RBC % (auto) 0.0 Sodium 139 Potassium 3.2 L Chloride 104 Carbon Dioxide 29 Anion Gap 9 L BUN 7 L Creatinine 0.76 Estim Creat Clear Calc 147.9 Estimated GFR > 60 Fasting Glucose 87 Calcium 7.3 L Magnesium 1.6 Discharge Plan Discharge Anticipated Discharge Date/Time: 06/30/23 09:08 Patient Disposition: Home, Self-Care Discharge Diagnosis: chf, anemia, etoh withdrawal Referrals: Nhi So [Primary Care Provider] - 1 Week Discharge Medications: New furosemide [Lasix] 40 mg tablet 40 mg PO DAILY Qty: 30 0RF omeprazole 40 mg capsule,delayed release(DR/EC) 40 mg PO DAILY Qty: 30 0RF Continued thiamine HCl (vitamin B1) 100 mg tablet 100 mg DAILY amlodipine 5 mg tablet 5 mg PO DAILY folic acid 1 mg tablet 1 mg PO DAILY hydroxyzine HCl 25 mg tablet 25 mg PO BID PRN (Reason: Anxiety) albuterol sulfate [Ventolin HFA] 90 mcg/actuation HFA aerosol inhaler 2 puff INHALATION Q6H PRN (Reason: wheezing) sertraline 50 mg tablet 50 mg PO DAILY spironolactone 50 mg tablet 50 mg PO DAILY cholecalciferol (vitamin D3) 25 mcg (1,000 unit) capsule 25 mcg DAILY quetiapine 25 mg tablet 25 mg BEDTIME docusate sodium 100 mg capsule 100 mg PO BID PRN (Reason: constipation) ferrous sulfate 325 mg (65 mg iron) tablet,delayed release (DR/EC) 325 mg PO DAILY Discontinued furosemide 20 mg tablet 20 mg DAILY Discharge Orders: Discharge Order (Routine); Ordered 06/30/23 Ordered By: Jean Cummings Diet: Low salt diet Activity on Discharge: As tolerated Stand Alone Forms: Patient Portal Discharge page Care Plan Goals: recovery Health Concerns: chf, cirrhosis, hemorrhoidal bleed Plan of Treatment: increase lasix to 40mg daily, low salt diet, start ppi, avoid etoh, follow up with gi Assessment: see above
[2023-06-30] MEDS: PHENobarbitaL 30 MG TABLET PO (09:42)
[2023-06-30] MEDS: Gabapentin 100 MG CAPSULE PO (09:42)
[2023-06-30] MEDS: Ferrous Sulfate 324 MG TABLET.DR PO (09:42)
[2023-06-30] MEDS: Folic Acid 1 MG TABLET PO (09:42)
[2023-06-30] MEDS: Spironolactone 25 MG TABLET 50 MG PO (09:42)
[2023-06-30] MEDS: Sertraline HCL 50 MG TABLET PO (09:42)
[2023-06-30] MEDS: Cholecalciferol (Vitamin D3) 25 MCG TABLET PO (09:42)
[2023-06-30] MEDS: Thiamine HCL 100 MG TABLET PO (09:42)
[2023-06-30] MEDS: Potassium Chloride ER 20 MEQ TAB.ER.PRT 40 MEQ PO (09:42)
[2023-06-30] MEDS: amLODIPine Besylate 5 MG TABLET PO (09:43)
[2023-06-30] MEDS: Furosemide 40 MG/4 ML VIAL IVPUSH (09:45)
[2023-06-30] MEDS: 0.9 % Sodium Chloride Flush 3 ML SYRINGE IVFLUSH (09:45)
[2023-06-30 11:13] VITALS: BP 114/63; PULSE 99; RESP 20; TEMP 36.6; O2SAT 98
--- NOTE | 2023-06-30 11:32 | MHC.CM.PN ---
PT WILL DC HOME TODAY WITH RESUMPTION OF SERVICES [facility] NOTIFIED AND DCS SENT TO THEM [facility]IA [facility] ARRANG[place] [facility] [place] [place] 1245 HOURS
== END 2023-06-30 11:45 | disposition home or self-care (01) | DRG 432 ==
LOC: HO.ED 12:30 → HO.EDOVER 13:14 → HO.IMC 15:32
PROVIDERS: Admitting Provider Physician Assistant; Emergency Provider Emergency Medicine; PCP Internal Medicine; Visit Provider Internal Medicine
DX: K70.31 Alcoholic cirrhosis of liver with ascites (principal); I50.33 Acute on chronic diastolic (congestive) heart failure; I81 Portal vein thrombosis; Z68.41 Body mass index [BMI] 40.0-44.9, adult; F10.239 Alcohol dependence with withdrawal, unspecified; K76.6 Portal hypertension; D50.9 Iron deficiency anemia, unspecified; F39 Unspecified mood [affective] disorder; E87.6 Hypokalemia; E83.42 Hypomagnesemia; I11.0 Hypertensive heart disease with heart failure; Y90.8 Blood alcohol level of 240 mg/100 ml or more; F17.210 Nicotine dependence, cigarettes, uncomplicated; Z71.6 Tobacco abuse counseling; E66.01 Morbid (severe) obesity due to excess calories; D69.59 Other secondary thrombocytopenia; K70.11 Alcoholic hepatitis with ascites; Z71.3 Dietary counseling and surveillance; Z79.899 Other long term (current) drug therapy
CPT/HCPCS: 36415; 71045; 76705; 80048; 80076; 80307; 81003; 82272; 82607; 82728; 82746; 83540; 83690; 83735; 83880; 84484; 85025; 85027; 85610; 85730; 93005; 99285; C9113; J0696; J1940; J2354; J2405; J2560; J3475

== ENCOUNTER → 2023-06-27 10:16 | Outpatient (BNV) | payer OTHER, SELFPAY | PROVIDERS: Admitting Provider Physician Assistant; Emergency Provider Emergency Medicine; Visit Provider Internal Medicine | DX: R22.43 Localized swelling, mass and lump, lower limb, bilateral (principal) | CPT/HCPCS: 93010 ==

== ENCOUNTER → 2023-06-27 12:54 | Outpatient (BNV) | payer OTHER, SELFPAY | PROVIDERS: Admitting Provider Physician Assistant; Emergency Provider Emergency Medicine; Visit Provider Internal Medicine | DX: K62.5 Hemorrhage of anus and rectum (principal); D64.9 Anemia, unspecified; I50.9 Heart failure, unspecified; K72.90 Hepatic failure, unspecified without coma; K74.60 Unspecified cirrhosis of liver | CPT/HCPCS: 99223; 99232; 99233; 99239 ==

== ENCOUNTER → 2023-06-27 12:54 | Outpatient (BNV) | payer OTHER, SELFPAY | PROVIDERS: Admitting Provider Physician Assistant; Emergency Provider Emergency Medicine; PCP Internal Medicine; Visit Provider Internal Medicine Gastroenterology | DX: K74.60 Unspecified cirrhosis of liver (principal); D64.9 Anemia, unspecified; K62.5 Hemorrhage of anus and rectum; K72.90 Hepatic failure, unspecified without coma | CPT/HCPCS: 99222 ==

== ENCOUNTER → 2023-06-27 12:54 | Outpatient (BNV) | payer OTHER, SELFPAY | PROVIDERS: Admitting Provider Physician Assistant; Emergency Provider Emergency Medicine; PCP Internal Medicine; Visit Provider Nurse Practitioner Psychiatric/Mental Health | DX: F10.20 Alcohol dependence, uncomplicated (principal) | CPT/HCPCS: 99232 ==

== ENCOUNTER 2023-07-11 11:46 | Emergency (ER) | payer OTHER, SELFPAY ==
--- NOTE | 2023-07-11 | ECG_ITS ---
Test Reason : DIZZINESS Blood Pressure : / mmHG Vent. Rate : 096 BPM Atrial Rate : 096 BPM P-R Int : 148 ms QRS Dur : 090 ms QT Int : 392 ms P-R-T Axes : 030 023 045 degrees QTc Int : 495 ms Normal sinus rhythm Prolonged QT Abnormal ECG When compared with ECG of 27-JUN-2023 10:35, No significant change was found Referred By: Generic ED Physician Electronically Signed By:SAVAGE PETTY MD
[2023-07-11 11:55] VITALS: BP 142/100; PULSE 102; O2SAT 98
[2023-07-11 12:11] VITALS: BP 138/75; PULSE 97; RESP 18; TEMP 37.2; O2SAT 97; BMI 35.1
[2023-07-11 12:38] LABS: Basophils Absolute Auto 0.1 X10*3/uL (0.0-0.2); Basophils Percent Auto 0.8 % (0-2); Eosinophils Percent Auto 0.3 % (0-4); Hematocrit 28.7 % (42.0-52.0); Hemoglobin 8.8 g/dl (14.0-18.0); Imm Gran Abs Auto 0.02 X10*3/uL (0.00-0.03); Imm Gran Pct Auto 0.2 % (0.0-0.4); Lymphocytes Absolute Auto 1.6 X10*3/uL (1.2-4.9); Lymphocytes Percent Auto 17.9 % (20-40); MANUAL DIFF FLAG NO; Mean Corpuscular HGB Conc 30.7 g/dl (31.0-36.0); Mean Corpuscular Hemoglobin 24.1 pg (27.0-33.0); Mean Corpuscular Volume 78.6 fL (80.0-98.0); Mean Platelet Volume 9.1 fL (9.4-12.4); Monocytes Absolute Auto 1.2 X10*3/uL (0.1-1.2); Monocytes Percent Auto 13.1 % (2-11); Neutrophils Absolute Auto 6.1 x10*3/uL (2.0-8.3); Neutrophils Percent Auto 67.7 % (45-73); Platelet Count 408 X10*3/uL (160-400); Red Blood Count 3.65 X10*6/uL (4.60-5.80); Red Cell Distribution Width 26.4 % (11.0-16.0)
[2023-07-11 12:41] LABS: Appearance Urine Clear; Color Urine Yellow; Glucose Urine UA Negative (Negative); Leukocyte Esterase Urine Negative (Negative); Nitrite Urine Negative (Negative); Specific Gravity - Urine 1.015 (1.005-1.025); Urine Blood Negative (Negative); Urine Ketones Negative (Negative); Urine Protein Negative (Neg-Trace)
[2023-07-11 12:50] LABS: Bacteria Urine None Seen (None Seen); Hyaline Casts Urine 0-2 /LPF (0-2); RBC Urine 0-2 /HPF (0-2); Squamous Epithelial Cell Urine 0-2 /HPF (0-2); WBC Urine 0-5 /HPF (0-5)
[2023-07-11 12:54] LABS: COVID-19 Test Negative (Negative); IDNOW Serial# 08D9AD1C
--- NOTE | 2023-07-11 12:55 | PC.NURSE ---
a&ox4. vss and up to date. pt presents to the ED w/ increased dizziness/lightheadedness/weakness x 4 days. pt also c/o 8/10 throat pain d/t increase in coughing x 3 weeks. pt ambulates to the restroom w/ steady gait independently. no assistance needed. pt states he feels lightheaded/dizzy post ambulating. no sob/wob noted. respirations remain even and unlabored. labs obtained/sent. plan of care ongoing. call grimm placed within reach.
[2023-07-11 13:02] LABS: IDNOW Serial# 152EDE1D
[2023-07-11 13:03] LABS: Influenza A Negative (Negative); Influenza B2 Negative (Negative)
[2023-07-11 13:32] LABS: Anion Gap 16 (12-20); Blood Urea Nitrogen 10 mg/dL (9-16); Calcium 8.6 mg/dL (8.4-10.2); Carbon Dioxide 25 mmol/L (22-29); Chloride 101 mmol/L (96-108); Creatinine Clr Calc Pharmacy 119.5; Estimated Glomerular Filt Rate > 60; Glucose Random 90 mg/dL (60-115); Potassium 4.7 mmol/L (3.3-5.1); Sodium 137 mmol/L (135-145)
[2023-07-11 14:43] VITALS: BP 132/63; PULSE 92; RESP 16; TEMP 37.3; O2SAT 97
--- NOTE | 2023-07-11 14:44 | PC.NURSE ---
vss and up to date at this time. pt still verbalizing 8/10 throat pain at this time. pt waiting to be seen by ED provider. respirations remain even and unlabored. call grimm placed within reach.
[2023-07-11 14:50] LABS: Ethanol 84 mg/dL
--- NOTE | 2023-07-11 15:04 | ED_ITS ---
HPI - General Adult General Chief complaint: General Medical Stated complaint: DIZZY,WEAK X4 DAYS PER EMS Time Seen by Provider: 07/11/23 15:04 Source: patient Mode of arrival: ambulatory Limitations: language barrier ([place] speaking only, educational interpreter used) History of Present Illness HPI narrative: 52-year-old male with a history of congestive heart failure, cirrhosis, anemia who presents emergency department for evaluation of cough x3 weeks. The patient states the cough is persistent and nonproductive. He states he has been feeling fatigued and tired over the past several days. He states that he had fever and chills at home. He has had occasional dyspnea on exertion but no shortness of breath. It nausea but no vomiting or diarrhea. Related Data Home Medications Medication Instructions Recorded Confirmed albuterol sulfate 90 mcg/actuation 2 puff inhalation Q6H PRN wheezing 05/23/23 06/27/23 aerosol inhaler (Ventolin HFA) amlodipine 5 mg tablet 5 mg PO DAILY 05/23/23 06/27/23 cholecalciferol (vitamin D3) 25 25 mcg DAILY 05/23/23 06/27/23 mcg (1,000 unit) capsule folic acid 1 mg tablet 1 mg PO DAILY 05/23/23 06/27/23 hydroxyzine HCl 25 mg tablet 25 mg PO BID PRN Anxiety 05/23/23 06/27/23 sertraline 50 mg tablet 50 mg PO DAILY 05/23/23 06/27/23 spironolactone 50 mg tablet 50 mg PO DAILY 05/23/23 06/27/23 thiamine HCl (vitamin B1) 100 mg 100 mg DAILY 05/23/23 06/27/23 tablet docusate sodium 100 mg capsule 100 mg PO BID PRN constipation 06/27/23 06/27/23 ferrous sulfate 325 mg (65 mg 325 mg PO DAILY 06/27/23 06/27/23 iron) tablet,delayed release quetiapine 25 mg tablet 25 mg BEDTIME 06/27/23 06/27/23 Previous Rx's Medication Instructions Recorded furosemide 40 mg tablet (Lasix) 40 mg PO DAILY #30 tabs 06/30/23 omeprazole 40 mg capsule,delayed 40 mg PO DAILY #30 caps 06/30/23 release doxycycline hyclate 100 mg tablet 100 mg PO Q12H 10 days #20 tabs 07/11/23 Allergies Allergy/AdvReac Type Severity Reaction Status Date / Time aspirin Allergy Unknown rash Verified 07/11/23 12:11 Shrimp Flavor Allergy Unknown anaphylaxis Uncoded 07/11/23 12:11 Review of Systems 2 Review of Systems: Yes all other systems are reviewed and are negative [facility] Past Medical History [facility] Narrative: Social history: The patient smokes 3-4 cigarettes per day. He drinks 3 beers per day. He denies drug use. Medical History Pancreatic lesion Peripheral neuropathy Portal vein thrombosis Recurrent acute pancreatitis Joint pain Insomnia Anxiety Asthma Hypertension Depression Alcoholic fatty liver Alcoholic cirrhosis of liver Alcohol abuse Social History Social History Household Members: Family Housing: Apartment Do you presently have visiting nurse or other home services: Yes (2 nurses and in the process of getting a structural technician. for bp checks and meds) Alcohol intake: current Alcohol intake frequency: 3 or more drinks per day Alcohol type: beer Comment: pt refuse Patient Tobacco Use Status: Former Tobacco user Tobacco use type: Cigarette Cigarette Packs Per Day: 1 Cigarettes Per Day: 20.0 Years Smoked: 33 Smoked in Last 30 Days: No e-Cigarette/Vaping Use: Currently Using Second Hand Smoke Exposure: No Use of substances other than those prescribed or required for medical reasons: No Advance Directives: No Advance Directives Information Provided: Yes service: No Physical Exam ED Vital Signs: Vital Signs - 24 hr 07/11/23 12:11 07/11/23 14:43 Temperature 98.9 F 99.1 F Pulse Rate 97 92 Respiratory Rate 18 16 Blood Pressure 138/75 132/63 Pulse Oximetry 97 97 Oxygen Delivery Method Room Air Room Air BMI result Body Mass Index 35.1 Vital signs were normal Exam: General: Awake, alert in no distress, elevated BMI 35.1 Head: Normocephalic, atraumatic EENT: PERRL, Lids normal, sclera normal, conjunctiva normal, nose normal , ears normal, throat without erythema or exudates Neck: Supple, no adenopathy, no trachea midline or C-spine tenderness Lung: breath sounds symmetric, no wheezing, rales or rhonchi Chest: symmetric movement, nontender Heart: Tachycardia with irregular rate and irregular rhythm, normal S1, S2 no murmurs or rubs Abdomen: soft, non-tender, nondistended, normal bowel sounds Back: no vertebral tenderness, no CVAT Extremities: no deformities, moves all extremities symmetrically Neuro: Awake, alert, oriented, normal speech, cranial nerves intact, moves all extremities symmetrically Psych: Pleasant, cooperative Medications Administered Discontinued Medications Generic Name Dose Route Start Last Admin Trade Name Freq PRN Reason Stop Dose Admin Doxycycline Monohydrate 100 mg 07/11/23 15:23 07/11/23 15:49 Doxycycline Monohydrate 100 Mg Capsule PO 07/11/23 15:24 100 mg ONCE ONE Administration Medical Decision Making Medical Decision Making [facility] Narrative: 52-year-old male with a history of congestive heart failure, cirrhosis, anemia who presents emergency department for evaluation of cough x3 weeks. The patient states the cough is persistent and nonproductive, fatigue, fever, chills, nausea. Vital signs were normal. Physical examination was unremarkable. Differential diagnosis includes was not limited to acute bronchitis, acute pneumonia, anemia, electrolyte abnormality, COVID-19, influenza, pharyngitis Following evaluation was ordered: CBC, BNP, COVID-19, influenza, rapid strep, urinalysis, ethanol level Patient was treated with the following: Doxycycline 100 mg orally 16:41 My interpretation patient's laboratory evaluation as follows: Chronic anemia with an H&H of 8.8 and 28.7. BMP was normal. COVID-19 was negative. Ethanol level was elevated at 84. Patient's COVID-19, influenza and rapid strep were negative. Patient's presentation is consistent acute bronchitis. Patient was treated with doxycycline 100 mg b.i.d. for 10 days. He was given printed and verbal instructions and discharged home. Lab Data [facility] Lab Attestation statement: I reviewed the patient's lab results. 07/11/23 12:28 07/11/23 12:28 Labs: Lab Results 07/11/23 07/11/23 07/11/23 Range/Units 12:28 12:30 14:52 WBC 9.0 (4.8-10.8) X10*3/uL RBC 3.65 L (4.60-5.80) X10*6/uL Hgb 8.8 L (14.0-18.0) g/dl Hct 28.7 L (42.0-52.0) % MCV 78.6 L (80.0-98.0) fL MCH 24.1 L (27.0-33.0) pg MCHC 30.7 L (31.0-36.0) g/dl RDW 26.4 H (11.0-16.0) % Plt Count 408 H D (160-400) X10*3/uL MPV 9.1 L (9.4-12.4) fL Immature Gran % (Auto) 0.2 (0.0-0.4) % Neut % (Auto) 67.7 (45-73) % Lymph % (Auto) 17.9 L (20-40) % Love % (Auto) 13.1 H (2-11) % Eos % (Auto) 0.3 (0-4) % Baso % (Auto) 0.8 (0-2) % Lymph # (Auto) 1.6 (1.2-4.9) X10*3/uL Love # (Auto) 1.2 (0.1-1.2) X10*3/uL Eos # (Auto) 0.0 (0.0-0.4) X10*3/uL Baso # (Auto) 0.1 (0.0-0.2) X10*3/uL Abs Immat Gran (auto) 0.02 (0.00-0.03) X10*3/uL Absolute Neuts (auto) 6.1 (2.0-8.3) x10*3/uL Absolute Nucleated RBC 0.000 (0.0-0.012) X10*3/uL Nucleated RBC % (auto) 0.0 (0.0-0.2) /100WBC Sodium 137 (135-145) mmol/L Potassium 4.7 D (3.3-5.1) mmol/L Chloride 101 (96-108) mmol/L Carbon Dioxide 25 (22-29) mmol/L Anion Gap 16 (12-20) BUN 10 (9-16) mg/dL Creatinine 0.94 (0.5-1.4) mg/dL Estim Creat Clear Calc 119.5 Estimated GFR > 60 Random Glucose 90 (60-115) mg/dL Calcium 8.6 D (8.4-10.2) mg/dL Urine Color Yellow Urine Appearance Clear Urine pH 8.0 (5.0-9.0) Ur Specific [place] 1.015 (1.005-1.025) Urine Protein Negative (Neg-Trace) mg/dL Urine Glucose (UA) Negative (Negative) mg/dL Urine Ketones Negative (Negative) mg/dL Urine Blood Negative (Negative) Urine Nitrite Negative (Negative) Ur Leukocyte Esterase Negative (Negative) Urine RBC 0-2 (0-2) /HPF Urine WBC 0-5 (0-5) /HPF Ur Squamous Epith Cells 0-2 (0-2) /HPF Urine Bacteria None Seen (None Seen) Hyaline Casts 0-2 (0-2) /LPF Ethyl Alcohol 84 mg/dL COVID-19 (STEVNE) Negative (Negative) COVID-19 Clin Com See Note Influenza Type A (YULIET) Negative (Negative) Influenza Type B (YULIET) Negative (Negative) Influenza A & B Note See Note S. pyogenes GrpA YULIET Negative (Negative) Prescription Management I considered prescription management with: Antibiotic Chronic Conditions Patient?s care impacted by: Other (CHF, cirrhosis, alcohol use disorder) Discharge Plan Discharge Clinical Impression: Acute bronchitis Qualifiers: Bronchitis organism: other organism Qualified Code(s): J20.8 - Acute bronchitis due to other specified organisms Patient Disposition: Home, Self-Care Instructions: Acute Bronchitis (ED) Additional Instructions: Your blood work is consistent with your baseline laboratory values Your COVID-19 test was negative. Your symptoms are consistent with bronchitis which is an infection of your breathing tubes. Take doxycycline 100 mg, 1 pill every 12 hours for 10 days Follow-up with your doctor in 2 days. Please return to the emergency department if your symptoms get worse or if you develop any symptoms that are concerning to you. Prescriptions: New doxycycline hyclate 100 mg tablet 100 mg PO Q12H 10 Days Qty: 20 0RF No Action thiamine HCl (vitamin B1) 100 mg tablet 100 mg DAILY amlodipine 5 mg tablet 5 mg PO DAILY folic acid 1 mg tablet 1 mg PO DAILY hydroxyzine HCl 25 mg tablet 25 mg PO BID PRN (Reason: Anxiety) albuterol sulfate [Ventolin HFA] 90 mcg/actuation HFA aerosol inhaler 2 puff INHALATION Q6H PRN (Reason: wheezing) sertraline 50 mg tablet 50 mg PO DAILY spironolactone 50 mg tablet 50 mg PO DAILY cholecalciferol (vitamin D3) 25 mcg (1,000 unit) capsule 25 mcg DAILY quetiapine 25 mg tablet 25 mg BEDTIME docusate sodium 100 mg capsule 100 mg PO BID PRN (Reason: constipation) ferrous sulfate 325 mg (65 mg iron) tablet,delayed release (DR/EC) 325 mg PO DAILY furosemide [Lasix] 40 mg tablet 40 mg PO DAILY Qty: 30 0RF omeprazole 40 mg capsule,delayed release(DR/EC) 40 mg PO DAILY Qty: 30 0RF Interventions: ED Discharge Assessment Last Done: 07/11/23 15:50 Discharge Date/Time: 07/11/23 15:51
[2023-07-11 15:27] LABS: IDNOW Serial# 08D9AD1C; Strep A Nucleic Acid Negative (Negative)
[2023-07-11] MEDS: Doxycycline Monohydrate 100 MG CAPSULE PO (15:49)
--- NOTE | 2023-07-11 15:50 | PC.NURSE ---
medication administered per provider order. pt provided w/ d/c paperwork.
== END 2023-07-11 15:51 | disposition home or self-care (01) ==
PROVIDERS: Emergency Provider Emergency Medicine Emergency Medical Services
DX: J20.8 Acute bronchitis due to other specified organisms (principal); R42 Dizziness and giddiness; R53.1 Weakness; R05.9 Cough, unspecified; R11.0 Nausea; R06.02 Shortness of breath; Z11.52 Encounter for screening for COVID-19; Z79.899 Other long term (current) drug therapy; Z87.891 Personal history of nicotine dependence
CPT/HCPCS: 36415; 80048; 80307; 81001; 85025; 87502; 87635; 87651; 93005; 99283; 99284

== ENCOUNTER → 2023-07-11 13:02 | Outpatient (BNV) | payer OTHER, SELFPAY | PROVIDERS: Emergency Provider Emergency Medicine Emergency Medical Services; Visit Provider Internal Medicine Cardiovascular Disease | DX: I45.81 Long QT syndrome (principal) | CPT/HCPCS: 93010 ==

== ENCOUNTER 2023-07-16 09:22 | Emergency (ER) | payer OTHER, SELFPAY ==
[2023-07-16 09:31] VITALS: BP 123/73; PULSE 92; O2SAT 100
[2023-07-16 09:49] VITALS: BP 132/67; PULSE 94; RESP 18; TEMP 36.6; O2SAT 97; BMI 39.2
[2023-07-16 10:14] LABS: COVID-19 Test Negative (Negative); IDNOW Serial# 58CA691E
[2023-07-16 10:40] LABS: IDNOW Serial# 9DB6401D; Influenza A Negative (Negative); Influenza B2 Negative (Negative)
[2023-07-16 10:44] VITALS: O2SAT 99
--- NOTE | 2023-07-16 11:36 | ED.URI ---
HPI - URI/Sore Throat General Chief Complaint: Upper Respiratory Symptoms Stated Complaint: FLU LIKE SYMPTOMS SINCE LAST NIGHT Time Seen by Provider: 07/16/23 09:45 Source: patient Mode of arrival: EMS History of Present Illness HPI Narrative: 52-year-old male arrives via EMS with left-sided chest pain that is worse with cough and also describing shortness of breath, patient is a daily drinker and did consume some alcoholic beverages prior to arrival he however denies any drug use and endorsed some episodes of nausea and vomiting that he states has since resolved. Related Data Home Medications Medication Instructions Recorded Confirmed albuterol sulfate 90 mcg/actuation 2 puff inhalation Q6H PRN wheezing 05/23/23 06/27/23 aerosol inhaler (Ventolin HFA) amlodipine 5 mg tablet 5 mg PO DAILY 05/23/23 06/27/23 cholecalciferol (vitamin D3) 25 25 mcg DAILY 05/23/23 06/27/23 mcg (1,000 unit) capsule folic acid 1 mg tablet 1 mg PO DAILY 05/23/23 06/27/23 hydroxyzine HCl 25 mg tablet 25 mg PO BID PRN Anxiety 05/23/23 06/27/23 sertraline 50 mg tablet 50 mg PO DAILY 05/23/23 06/27/23 spironolactone 50 mg tablet 50 mg PO DAILY 05/23/23 06/27/23 thiamine HCl (vitamin B1) 100 mg 100 mg DAILY 05/23/23 06/27/23 tablet docusate sodium 100 mg capsule 100 mg PO BID PRN constipation 06/27/23 06/27/23 ferrous sulfate 325 mg (65 mg 325 mg PO DAILY 06/27/23 06/27/23 iron) tablet,delayed release quetiapine 25 mg tablet 25 mg BEDTIME 06/27/23 06/27/23 Previous Rx's Medication Instructions Recorded furosemide 40 mg tablet (Lasix) 40 mg PO DAILY #30 tabs 06/30/23 omeprazole 40 mg capsule,delayed 40 mg PO DAILY #30 caps 06/30/23 release doxycycline hyclate 100 mg tablet 100 mg PO Q12H 10 days #20 tabs 07/11/23 Allergies Allergy/AdvReac Type Severity Reaction Status Date / Time aspirin Allergy Unknown rash Verified 07/19/23 13:42 Shrimp Flavor Allergy Unknown anaphylaxis Uncoded 01/30/24 12:11 Review of Systems Review of Systems: Pertinent positives and negatives as stated in HPI [facility] Past Medical History Source: nursing notes reviewed Medical History Pancreatic lesion Peripheral neuropathy Portal vein thrombosis Recurrent acute pancreatitis Joint pain Insomnia Anxiety Asthma Hypertension Depression Alcoholic fatty liver Alcoholic cirrhosis of liver Alcohol abuse Social History Social History Household Members: Family Housing: Apartment Do you presently have visiting nurse or other home services: Yes (2 nurses and in the process of getting a design/animation instructor. for bp checks and meds) Alcohol intake: current Alcohol intake frequency: 3 or more drinks per day Alcohol type: beer Comment: pt refuse Patient Tobacco Use Status: Former Tobacco user Tobacco use type: Cigarette Cigarette Packs Per Day: 1 Cigarettes Per Day: 20.0 Years Smoked: 33 e-Cigarette/Vaping Use: Currently Using Second Hand Smoke Exposure: No Advance Directives: No Advance Directives Information Provided: No service: No Physical Exam Vital Signs: Vital Signs: Last Vital Signs Temp 98.3 F 07/16/23 11:44 Pulse 98 07/16/23 11:44 Resp 16 07/16/23 11:44 BP 125/69 07/16/23 11:44 Pulse Ox 99 07/16/23 11:44 O2 Del Method Room Air 07/16/23 11:44 BMI result Body Mass Index 39.2 VITAL SIGNS: Reviewed. GENERAL: Well developed, well nourished, in no acute distress. HEAD: Normocephalic/atraumatic EYES: PERRLA, EOMI EARS: Ext canals without abnormality, TMs non-bulging and non-erythematous NOSE: Nares patent bilateral OROPHARYNX: no oral lesions noted, posterior pharynx clear and non-erythematous without noted tonsillar enlargement/erythema/exudates NECK: Supple, no adenopathy LUNGS: Normal breath sounds. No adventitious sounds or accessory muscle use. SpO2<99> CARDIOVASCULAR: Regular rate and rhythm without noted murmurs ABDOMEN: Soft, mild epigastric discomfort, non-distended with bowel sounds. MUSCULOSKELETAL: No tenderness, deformities, or effusions noted on gross inspection. EXTREMITIES: No cyanosis, clubbing or edema. SKIN: Inspection of the skin reveals no rashes NEUROLOGIC: Alert and oriented x 4. Strength and sensation to light touch were grossly intact x 4. Medical Decision Making Medical Decision Making MDM Narrative: 52-year-old male with history and clinical presentation, DDX: Bronchitis, viral illness Reviewed investigations and viral testing is negative COVID-19/influenza. Patient is requesting to leave, I have discussed with him the importance of obtaining further lab work however he states he does not want it and endorses to me that he is feeling better and he just simply wishes to leave. Patient is noted to be tolerating oral intake, vital signs are otherwise stable and he is oxygenating well on room air. Differential Diagnosis Differential Diagnoses: The differential diagnosis associated with the presentation includes Please see the discussion Admission/Observation Consideration of admission/observation: Escalation of care including admission/observation considered Please see the discussion above Lab Data [facility] Lab Attestation statement: I reviewed the patient's lab results. Please see the discussion above Labs: Lab Results 07/16/23 Range/Units 09:55 COVID-19 (STEVEN) Negative (Negative) COVID-19 Clin Com See Note Influenza Type A (YULIET) Negative (Negative) Influenza Type B (YULIET) Negative (Negative) Influenza A & B Note See Note Discharge Plan Discharge Clinical Impression: Alcoholic gastritis Patient Disposition: Home, Self-Care Instructions: Gastritis (ED), Alcohol Use Disorder (ED) Additional Instructions: 1. Resume all home medications as prescribed. 2. Should you ever decide to pursue detox, please return to the emergency room. Prescriptions: No Action doxycycline hyclate 100 mg tablet 100 mg PO Q12H 10 Days Qty: 20 0RF thiamine HCl (vitamin B1) 100 mg tablet 100 mg DAILY amlodipine 5 mg tablet 5 mg PO DAILY folic acid 1 mg tablet 1 mg PO DAILY hydroxyzine HCl 25 mg tablet 25 mg PO BID PRN (Reason: Anxiety) albuterol sulfate [Ventolin HFA] 90 mcg/actuation HFA aerosol inhaler 2 puff INHALATION Q6H PRN (Reason: wheezing) sertraline 50 mg tablet 50 mg PO DAILY spironolactone 50 mg tablet 50 mg PO DAILY cholecalciferol (vitamin D3) 25 mcg (1,000 unit) capsule 25 mcg DAILY quetiapine 25 mg tablet 25 mg BEDTIME docusate sodium 100 mg capsule 100 mg PO BID PRN (Reason: constipation) ferrous sulfate 325 mg (65 mg iron) tablet,delayed release (DR/EC) 325 mg PO DAILY furosemide [Lasix] 40 mg tablet 40 mg PO DAILY Qty: 30 0RF omeprazole 40 mg capsule,delayed release(DR/EC) 40 mg PO DAILY Qty: 30 0RF Discharge Date/Time: 07/16/23 11:54
[2023-07-16 11:44] VITALS: BP 125/69; PULSE 98; RESP 16; TEMP 36.8; O2SAT 99
--- NOTE | 2023-07-16 11:44 | PC.NURSE ---
Addendum entered by Domonique Mcintyre RN 07/16/23 11:53: patient needed 2 passes due to address Original Note: patient given one bus pass to get home.
== END 2023-07-16 11:54 | disposition home or self-care (01) ==
PROVIDERS: Emergency Provider Student in an Organized Health Care Education/Training Program
DX: K29.20 Alcoholic gastritis without bleeding (principal); R07.89 Other chest pain; R05.9 Cough, unspecified; R06.02 Shortness of breath; Z11.52 Encounter for screening for COVID-19; Z79.899 Other long term (current) drug therapy
CPT/HCPCS: 87502; 87635; 99283; 99284

== ENCOUNTER 2023-07-18 05:11 | Emergency (ER) | payer OTHER, SELFPAY ==
--- NOTE | 2023-07-18 | ECG_ITS ---
Test Reason : JIMENEJ Blood Pressure : / mmHG Vent. Rate : 090 BPM Atrial Rate : 090 BPM P-R Int : 154 ms QRS Dur : 096 ms QT Int : 378 ms P-R-T Axes : 044 030 049 degrees QTc Int : 462 ms Normal sinus rhythm Normal ECG When compared with ECG of 11-JUL-2023 13:02, No significant change was found Referred By: Generic ED Physician Electronically Signed By:WALTER VILLAGRAN
[2023-07-18 05:14] VITALS: BP 121/87; PULSE 95; O2SAT 97
[2023-07-18 05:16] VITALS: BP 130/73; PULSE 97; RESP 17; TEMP 36.6; O2SAT 98; BMI 44.2
--- NOTE | 2023-07-18 05:43 | MHC.EDTECH ---
This Tech assumed care of this pt upon arrival. pt changed into a hospital gown and placed on a property assessment monitor. EKG completed and handed to a provider
[2023-07-18 05:48] VITALS: PULSE 90
--- NOTE | 2023-07-18 06:21 | MHC.EDTECH ---
THis Teach was unable to obtain bloodwork due to pt being uncooperative. RN made aware
--- NOTE | 2023-07-18 07:15 | ED_ITS ---
HPI - Chest Pain General Chief Complaint: Chest Pain Stated Complaint: sob Time Seen by Provider: 07/18/23 07:13 Related Data Home Medications Medication Instructions Recorded Confirmed albuterol sulfate 90 mcg/actuation 2 puff inhalation Q6H PRN wheezing 05/23/23 06/27/23 aerosol inhaler (Ventolin HFA) amlodipine 5 mg tablet 5 mg PO DAILY 05/23/23 06/27/23 cholecalciferol (vitamin D3) 25 25 mcg DAILY 05/23/23 06/27/23 mcg (1,000 unit) capsule folic acid 1 mg tablet 1 mg PO DAILY 05/23/23 06/27/23 hydroxyzine HCl 25 mg tablet 25 mg PO BID PRN Anxiety 05/23/23 06/27/23 sertraline 50 mg tablet 50 mg PO DAILY 05/23/23 06/27/23 spironolactone 50 mg tablet 50 mg PO DAILY 05/23/23 06/27/23 thiamine HCl (vitamin B1) 100 mg 100 mg DAILY 05/23/23 06/27/23 tablet docusate sodium 100 mg capsule 100 mg PO BID PRN constipation 06/27/23 06/27/23 ferrous sulfate 325 mg (65 mg 325 mg PO DAILY 06/27/23 06/27/23 iron) tablet,delayed release quetiapine 25 mg tablet 25 mg BEDTIME 06/27/23 06/27/23 Previous Rx's Medication Instructions Recorded furosemide 40 mg tablet (Lasix) 40 mg PO DAILY #30 tabs 06/30/23 omeprazole 40 mg capsule,delayed 40 mg PO DAILY #30 caps 06/30/23 release doxycycline hyclate 100 mg tablet 100 mg PO Q12H 10 days #20 tabs 07/11/23 Allergies Allergy/AdvReac Type Severity Reaction Status Date / Time aspirin Allergy Unknown rash Verified 07/11/23 12:11 Shrimp Flavor Allergy Unknown anaphylaxis Uncoded 07/11/23 12:11 [facility] Past Medical History Medical History Pancreatic lesion Peripheral neuropathy Portal vein thrombosis Recurrent acute pancreatitis Joint pain Insomnia Anxiety Asthma Hypertension Depression Alcoholic fatty liver Alcoholic cirrhosis of liver Alcohol abuse Social History Social History Household Members: Family Housing: Apartment Do you presently have visiting nurse or other home services: Yes (2 nurses and in the process of getting a [employer]re[employer] printer. for bp checks and meds) Alcohol intake: current Alcohol intake frequency: 3 or more drinks per day Alcohol type: beer Comment: pt refuse Patient Tobacco Use Status: Former Tobacco user Tobacco use type: Cigarette Cigarette Packs Per Day: 1 Cigarettes Per Day: 20.0 Years Smoked: 33 e-Cigarette/Vaping Use: Currently Using Second Hand Smoke Exposure: No Use of substances other than those prescribed or required for medical reasons: No Advance Directives: No service: No Physical Exam Vital Signs: Vital Signs: Last Vital Signs Temp 97.9 F 07/18/23 05:16 Pulse 97 07/18/23 05:16 Resp 17 07/18/23 05:16 BP 130/73 07/18/23 05:16 Pulse Ox 98 07/18/23 05:16 O2 Del Method Room Air 07/18/23 05:16 BMI result Body Mass Index 44.2 Course Course Course Narrative: This is an RME: Additional HPI, ROS, PE not included below will be deferred to primary provider. 52 yo m presents via ambulance for CP and sob. When i went to ask him whats wrong he doesn't respond. Starts ripping out his IV blood all over room. Reports he just wants to leave and not be here any longer because the wait was too long. Nursing on phone with Didnt allow an exam. Patient agitated and throwing things. Security at bedside to be escorted out. Adamant that he is leave. Wont speak to staff will leave ama and LWCT. Verbalized understanding of risks. Discharge Plan Discharge Clinical Impression: Left against medical advice Prescriptions: No Action doxycycline hyclate 100 mg tablet 100 mg PO Q12H 10 Days Qty: 20 0RF thiamine HCl (vitamin B1) 100 mg tablet 100 mg DAILY amlodipine 5 mg tablet 5 mg PO DAILY folic acid 1 mg tablet 1 mg PO DAILY hydroxyzine HCl 25 mg tablet 25 mg PO BID PRN (Reason: Anxiety) albuterol sulfate [Ventolin HFA] 90 mcg/actuation HFA aerosol inhaler 2 puff INHALATION Q6H PRN (Reason: wheezing) sertraline 50 mg tablet 50 mg PO DAILY spironolactone 50 mg tablet 50 mg PO DAILY cholecalciferol (vitamin D3) 25 mcg (1,000 unit) capsule 25 mcg DAILY quetiapine 25 mg tablet 25 mg BEDTIME docusate sodium 100 mg capsule 100 mg PO BID PRN (Reason: constipation) ferrous sulfate 325 mg (65 mg iron) tablet,delayed release (DR/EC) 325 mg PO DAILY furosemide [Lasix] 40 mg tablet 40 mg PO DAILY Qty: 30 0RF omeprazole 40 mg capsule,delayed release(DR/EC) 40 mg PO DAILY Qty: 30 0RF
--- NOTE | 2023-07-18 07:16 | PC.NURSE ---
Pt aggressive and agitated ripping off leads, unable to redirect. Spoke to S/O on cell phone w ho states pt just wants to leave and at times gets like this and theres nothing we can do S/O attempting to arrange ride for pt. IV removed. Pt steady on feet and walked out.
== END 2023-07-18 07:19 | disposition left against medical advice (07) ==
PROVIDERS: Emergency Provider Emergency Medicine
DX: R07.9 Chest pain, unspecified (principal); R06.02 Shortness of breath; I10 Essential (primary) hypertension
CPT/HCPCS: 93005; 99283; 99284

== ENCOUNTER → 2023-07-18 05:19 | Outpatient (BNV) | payer OTHER, SELFPAY | PROVIDERS: Emergency Provider Emergency Medicine; Visit Provider Internal Medicine | DX: R06.02 Shortness of breath (principal) | CPT/HCPCS: 93010 ==

== ENCOUNTER 2023-07-19 12:25 | Emergency (ER) | payer OTHER, SELFPAY ==
[2023-07-19 12:33] VITALS: BP 132/65; PULSE 95; O2SAT 100
--- NOTE | 2023-07-19 13:41 | ED.GENADULT ---
HPI - General Adult General Chief complaint: Dyspnea Stated complaint: SOB PER EMS Related Data Home Medications Medication Instructions Recorded Confirmed albuterol sulfate 90 mcg/actuation 2 puff inhalation Q6H PRN wheezing 05/23/23 06/27/23 aerosol inhaler (Ventolin HFA) amlodipine 5 mg tablet 5 mg PO DAILY 05/23/23 06/27/23 cholecalciferol (vitamin D3) 25 25 mcg DAILY 05/23/23 06/27/23 mcg (1,000 unit) capsule folic acid 1 mg tablet 1 mg PO DAILY 05/23/23 06/27/23 hydroxyzine HCl 25 mg tablet 25 mg PO BID PRN Anxiety 05/23/23 06/27/23 sertraline 50 mg tablet 50 mg PO DAILY 05/23/23 06/27/23 spironolactone 50 mg tablet 50 mg PO DAILY 05/23/23 06/27/23 thiamine HCl (vitamin B1) 100 mg 100 mg DAILY 05/23/23 06/27/23 tablet docusate sodium 100 mg capsule 100 mg PO BID PRN constipation 06/27/23 06/27/23 ferrous sulfate 325 mg (65 mg 325 mg PO DAILY 06/27/23 06/27/23 iron) tablet,delayed release quetiapine 25 mg tablet 25 mg BEDTIME 06/27/23 06/27/23 Previous Rx's Medication Instructions Recorded furosemide 40 mg tablet (Lasix) 40 mg PO DAILY #30 tabs 06/30/23 omeprazole 40 mg capsule,delayed 40 mg PO DAILY #30 caps 06/30/23 release doxycycline hyclate 100 mg tablet 100 mg PO Q12H 10 days #20 tabs 07/11/23 Allergies Allergy/AdvReac Type Severity Reaction Status Date / Time aspirin Allergy Unknown rash Verified 07/19/23 13:42 Shrimp Flavor Allergy Unknown anaphylaxis Uncoded 07/11/23 12:11 [facility] Past Medical History Medical History Pancreatic lesion Peripheral neuropathy Portal vein thrombosis Recurrent acute pancreatitis Joint pain Insomnia Anxiety Asthma Hypertension Depression Alcoholic fatty liver Alcoholic cirrhosis of liver Alcohol abuse Social History Social History Household Members: Family Housing: Apartment Do you presently have visiting nurse or other home services: Yes (2 nurses and in the process of getting a creative perfumer. for bp checks and meds) Alcohol intake: current Alcohol intake frequency: 3 or more drinks per day Alcohol type: beer Comment: pt refuse Patient Tobacco Use Status: Former Tobacco user Tobacco use type: Cigarette Cigarette Packs Per Day: 1 Cigarettes Per Day: 20.0 Years Smoked: 33 e-Cigarette/Vaping Use: Currently Using Second Hand Smoke Exposure: No Advance Directives: No Advance Directives Information Provided: No service: No Physical Exam ED Vital Signs: Vital Signs - 24 hr 07/19/23 13:43 Temperature 98.4 F Pulse Rate 98 Respiratory Rate 20 Blood Pressure 106/58 L Pulse Oximetry 100 Oxygen Delivery Method Room Air BMI result Body Mass Index 33.2 Course Course Course Narrative: RME:?52 year old male hx of anemia, CHF, etoh use disorder, here for eval of shortness of breath. states he is lacking oxygen , worsening today. has not been taking any OTC meds at home. [place] [facility] [place], became agitated, security was called, and patient was escorted out leaving AMA. 2 other visits for same this week. no recent travel or long car rides. not hypoxic. not tachy. speaking in complete sentences. 1+ pitting edema b/l LE. RRR. lungs cta b/l, no crackles. cxr and serology ordered. Full HPI, ROS and PE to be performed by the primary ED provider. Reevaluation(s) Reevaluation #1: Patient left the ED without completing treatment. Discharge Plan Discharge Clinical Impression: Shortness of breath Patient Disposition: Left W/O Completing Treatment Prescriptions: No Action doxycycline hyclate 100 mg tablet 100 mg PO Q12H 10 Days Qty: 20 0RF thiamine HCl (vitamin B1) 100 mg tablet 100 mg DAILY amlodipine 5 mg tablet 5 mg PO DAILY folic acid 1 mg tablet 1 mg PO DAILY hydroxyzine HCl 25 mg tablet 25 mg PO BID PRN (Reason: Anxiety) albuterol sulfate [Ventolin HFA] 90 mcg/actuation HFA aerosol inhaler 2 puff INHALATION Q6H PRN (Reason: wheezing) sertraline 50 mg tablet 50 mg PO DAILY spironolactone 50 mg tablet 50 mg PO DAILY cholecalciferol (vitamin D3) 25 mcg (1,000 unit) capsule 25 mcg DAILY quetiapine 25 mg tablet 25 mg BEDTIME docusate sodium 100 mg capsule 100 mg PO BID PRN (Reason: constipation) ferrous sulfate 325 mg (65 mg iron) tablet,delayed release (DR/EC) 325 mg PO DAILY furosemide [Lasix] 40 mg tablet 40 mg PO DAILY Qty: 30 0RF omeprazole 40 mg capsule,delayed release(DR/EC) 40 mg PO DAILY Qty: 30 0RF Discharge Date/Time: 07/19/23 20:44
[2023-07-19 13:43] VITALS: BP 106/58; PULSE 98; RESP 20; TEMP 36.9; O2SAT 100; BMI 33.2
== END 2023-07-19 20:44 | disposition left against medical advice (07) ==
PROVIDERS: Emergency Provider Emergency Medicine
DX: R06.02 Shortness of breath (principal)
CPT/HCPCS: 99281

== ENCOUNTER 2023-08-04 23:08 | Inpatient (IN) | payer OTHER, SELFPAY ==
--- NOTE | ~2023-08-04 | XR_ITS ---
EXAMINATION: XR CHEST CLINICAL INFORMATION: Shortness of breath. COMPARISON: 06/27/2023. TECHNIQUE: Frontal view of the chest was obtained. FINDINGS: The cardiomediastinal silhouette is stable. There is mild pulmonary vascular congestion. There is no focal lung consolidation or pleural effusion. The bony structures and soft tissues are unremarkable. XR/XR chest 1V IMPRESSION: Mild pulmonary vascular congestion. No focal lung consolidation.
[2023-08-04 23:13] VITALS: PULSE 97; O2SAT 99
[2023-08-04 23:15] VITALS: BP 131/64; PULSE 91; RESP 18; TEMP 36.8; O2SAT 95; BMI 38.9
[2023-08-04 23:39] VITALS: BP 109/60; PULSE 87; RESP 18; TEMP 36.9; O2SAT 95
[2023-08-04 23:48] LABS: MANUAL DIFF FLAG NO
[2023-08-04 23:49] LABS: Basophils Absolute Auto 0.1 X10*3/uL (0.0-0.2); Basophils Percent Auto 0.7 % (0-2); Eosinophils Absolute Auto 0.1 X10*3/uL (0.0-0.4); Eosinophils Percent Auto 1.2 % (0-4); Hemoglobin 7.4 g/dl (14.0-18.0); Imm Gran Abs Auto 0.02 X10*3/uL (0.00-0.03); Imm Gran Pct Auto 0.2 % (0.0-0.4); Lymphocytes Absolute Auto 2.5 X10*3/uL (1.2-4.9); Lymphocytes Percent Auto 25.9 % (20-40); Mean Corpuscular HGB Conc 30.8 g/dl (31.0-36.0); Mean Corpuscular Hemoglobin 23.5 pg (27.0-33.0); Mean Corpuscular Volume 76.2 fL (80.0-98.0); Mean Platelet Volume 9.2 fL (9.4-12.4); Monocytes Absolute Auto 1.1 X10*3/uL (0.1-1.2); Monocytes Percent Auto 11.4 % (2-11); Neutrophils Absolute Auto 5.8 x10*3/uL (2.0-8.3); Neutrophils Percent Auto 60.6 % (45-73); Platelet Count 239 X10*3/uL (160-400); Red Blood Count 3.15 X10*6/uL (4.60-5.80); Red Cell Distribution Width 23.5 % (11.0-16.0); White Blood Count 9.5 X10*3/uL (4.8-10.8)
[2023-08-05] VITALS (9 sets, daily range): BP systolic 107–148; BP diastolic 51–71; PULSE 88–107; RESP 14–20; TEMP 36.7–37.2; O2SAT 92–100; BMI 35.9
[2023-08-05 00:10] LABS: Alanine Aminotransferase 56 U/L (0-40); Albumin Level 3.4 g/dL (3.5-5.0); Alkaline Phosphatase 174 U/L (39-117); Anion Gap 14 (12-20); Aspartate Amino Transferase 169 U/L (5-37); Bilirubin Total 0.5 mg/dL (0.0-1.0); Blood Urea Nitrogen 15 mg/dL (9-16); Carbon Dioxide 23 mmol/L (22-29); Chloride 103 mmol/L (96-108); Creatinine Clr Calc Pharmacy 134.5; Estimated Glomerular Filt Rate > 60; Glucose Random 117 mg/dL (60-115); Potassium 4.4 mmol/L (3.3-5.1); Sodium 136 mmol/L (135-145)
[2023-08-05 00:39] LABS: Appearance Urine Clear; Color Urine Yellow; Glucose Urine UA Negative (Negative); Leukocyte Esterase Urine Negative (Negative); Nitrite Urine Negative (Negative); Specific Gravity - Urine <= 1.005 (1.005-1.025); Urine Blood Negative (Negative); Urine Ketones Negative (Negative); Urine Protein Negative (Neg-Trace)
[2023-08-05 00:41] LABS: Bacteria Urine None Seen (None Seen); Hyaline Casts Urine 0-2 /LPF (0-2); RBC Urine 0-2 /HPF (0-2); Squamous Epithelial Cell Urine 0-2 /HPF (0-2); WBC Urine 0-5 /HPF (0-5)
[2023-08-05 00:57] LABS: B Type Natriuretic Peptide 91 pg/mL (<100)
--- NOTE | 2023-08-05 02:42 | PC.NURSE ---
Pt up and ambulating with steady gait to bathroom.
[2023-08-05 04:21] LABS: Basophils Absolute Auto 0.1 X10*3/uL (0.0-0.2); Basophils Percent Auto 1.1 % (0-2); Eosinophils Absolute Auto 0.1 X10*3/uL (0.0-0.4); Eosinophils Percent Auto 1.6 % (0-4); Hematocrit 28.3 % (42.0-52.0); Hemoglobin 8.7 g/dl (14.0-18.0); Imm Gran Abs Auto 0.02 X10*3/uL (0.00-0.03); Imm Gran Pct Auto 0.3 % (0.0-0.4); Lymphocytes Absolute Auto 1.8 X10*3/uL (1.2-4.9); Lymphocytes Percent Auto 25.4 % (20-40); MANUAL DIFF FLAG NO; Mean Corpuscular HGB Conc 30.7 g/dl (31.0-36.0); Mean Corpuscular Hemoglobin 23.6 pg (27.0-33.0); Mean Corpuscular Volume 76.7 fL (80.0-98.0); Monocytes Absolute Auto 0.8 X10*3/uL (0.1-1.2); Monocytes Percent Auto 10.7 % (2-11); Neutrophils Absolute Auto 4.3 x10*3/uL (2.0-8.3); Neutrophils Percent Auto 60.9 % (45-73); PLT CLUMP 1; Red Blood Count 3.69 X10*6/uL (4.60-5.80); Red Cell Distribution Width 23.5 % (11.0-16.0); SCAN SMEAR FLAG 1
--- NOTE | 2023-08-05 06:58 | PC.NURSE ---
Report received from Eduin MCFARLAND & care transferred at this time. Hx of CHF, EtOH. Ambulates independently per overnight RN. Pt currently resting quietly on stretcher, appears in NAD. RR even and unlabored bilaterally. WCTA
--- NOTE | 2023-08-05 07:18 | ED.GENADULT ---
HPI - General Adult General Chief complaint: General Medical Stated complaint: etoh and swelling feet Time Seen by Provider: 08/05/23 07:06 Source: patient Mode of arrival: ambulatory Limitations: no limitations History of Present Illness HPI narrative: 52-year-old male with alcohol dependence, chronic pancreatitis, alcoholic cirrhosis, portal hypertension, chronic thrombocytopenia, portal vein thrombosis, HTN, HLD, asthma presented to the ED for evaluation increased bilateral lower extremities edema, and worsening of exertional dyspnea, patient is active alcohol drinker, had a previous admission to our facility for decompensated cirrhosis with CHF exacerbation despite using diuretics at home. Patient last drink was 2 days ago. No PND. Related Data Home Medications Medication Instructions Recorded Confirmed albuterol sulfate 90 mcg/actuation 2 puff inhalation Q6H PRN wheezing 05/23/23 06/27/23 aerosol inhaler (Ventolin HFA) amlodipine 5 mg tablet 5 mg PO DAILY 05/23/23 06/27/23 cholecalciferol (vitamin D3) 25 25 mcg DAILY 05/23/23 06/27/23 mcg (1,000 unit) capsule folic acid 1 mg tablet 1 mg PO DAILY 05/23/23 06/27/23 hydroxyzine HCl 25 mg tablet 25 mg PO BID PRN Anxiety 05/23/23 06/27/23 sertraline 50 mg tablet 50 mg PO DAILY 05/23/23 06/27/23 spironolactone 50 mg tablet 50 mg PO DAILY 05/23/23 06/27/23 thiamine HCl (vitamin B1) 100 mg 100 mg DAILY 05/23/23 06/27/23 tablet docusate sodium 100 mg capsule 100 mg PO BID PRN constipation 06/27/23 06/27/23 ferrous sulfate 325 mg (65 mg 325 mg PO DAILY 06/27/23 06/27/23 iron) tablet,delayed release quetiapine 25 mg tablet 25 mg BEDTIME 06/27/23 06/27/23 Previous Rx's Medication Instructions Recorded furosemide 40 mg tablet (Lasix) 40 mg PO DAILY #30 tabs 06/30/23 omeprazole 40 mg capsule,delayed 40 mg PO DAILY #30 caps 06/30/23 release doxycycline hyclate 100 mg tablet 100 mg PO Q12H 10 days #20 tabs 07/11/23 Allergies Allergy/AdvReac Type Severity Reaction Status Date / Time aspirin Allergy Unknown rash Verified 07/19/23 13:42 Shrimp Flavor Allergy Unknown anaphylaxis Uncoded 07/11/23 12:11 Review of Systems Review of Systems: All other systems are reviewed and are negative Constitutional: Reports as per HPI and Reports no additional constitutional complaints Eyes: Reports as per HPI and Reports no additional eye complaints Reports system reviewed and no additional complaints, except as documented Cardiovascular: Reports as per HPI and Reports no additional cardiovascular complaints Respiratory: Reports as per HPI and Reports no additional respiratory complaints Gastrointestinal: Reports as per HPI and Reports no additional gastrointestinal complaints Genitourinary: Reports no additional female genitourinary complaints Musculoskeletal: Reports no additional musculoskeletal complaints Skin/Breast: Reports system reviewed and no additional complaints, except as docu Psychiatric: Reports no additional psychiatric complaints Endocrine: Reports no additional endocrine complaints Hematologic/Lymphatic: Reports no additional hematologic/lymphatic complaints Allergic/Immunologic: Reports no additional allergic/immunologic complaints Reports system reviewed and no additional complaints, except as documented and Reports Abnormal speech present PMFSH Past Medical History Medical History Pancreatic lesion Peripheral neuropathy Portal vein thrombosis Recurrent acute pancreatitis Joint pain Insomnia Anxiety Asthma Hypertension Depression Alcoholic fatty liver Alcoholic cirrhosis of liver Alcohol abuse Social History Social History Household Members: Family Housing: Apartment Do you presently have visiting nurse or other home services: Yes (2 nurses and in the process of getting a it analyst. for bp checks and meds) Alcohol intake: current Alcohol intake frequency: 0-2 drinks per day Alcohol type: beer Comment: pt refuse Patient Tobacco Use Status: Former Tobacco user Tobacco use type: Cigarette Cigarette Packs Per Day: 1 Cigarettes Per Day: 20.0 Years Smoked: 33 Smoked in Last 30 Days: Yes e-Cigarette/Vaping Use: Currently Using Second Hand Smoke Exposure: No Use of substances other than those prescribed or required for medical reasons: No Advance Directives: No Advance Directives Information Provided: Yes service: No Physical Exam ED Vital Signs: Vital Signs - 24 hr 08/04/23 23:15 08/04/23 23:39 08/05/23 02:09 Temperature 98.2 F 98.4 F 98.0 F Pulse Rate 91 87 89 Respiratory Rate 18 18 16 Blood Pressure 131/64 109/60 107/51 L Pulse Oximetry 95 95 92 Oxygen Delivery Method Room Air Room Air Room Air 08/05/23 05:51 Temperature 98.2 F Pulse Rate 91 Respiratory Rate 20 Blood Pressure 122/64 Pulse Oximetry 97 Oxygen Delivery Method Room Air BMI result Body Mass Index 38.9 Vital signs have been reviewed and appear to be correct. Blood pressure elevated. Heart rate normal. Respiratory rate normal. Temperature normal. Oxygen saturation normal. Appearance: Alert. Oriented X3. No acute distress. Head: Normal external exam. Normocephalic. Atraumatic. No Mallory signs noted. No raccoon eyes noted Eyes: PERRLA. EOMI. Conjunctiva and sclera normal. Eyelids normal. ENT: TM's Normal. Pharynx normal. Uvula midline. Moist mucous membranes. No trismus noted. No drooling noted. No muffled voice noted. Neck: Normal inspection. Neck supple. FROM. No adenopathy. Thyroid Normal. No meningeal signs. No neck mass noted. CVS: Normal heart rate and rhythm. Heart sound normal. No murmurs noted. Pulses normal throughout. Respiratory: No respiratory distress. Painless inspiration. Breath sounds normal. No wheezes/rales/rhonchi noted. Chest nontender. No accessory muscle usage noted or decreased air movement noted. Abdomen: Soft and nontender. Bowel sounds normal in all 4 quadrants. No distention noted. No organomegaly noted. No visible injury noted. Back: No CVA tenderness. Full range of motion noted. Skin: Skin warm and dry. Normal skin color. Normal skin turgor. No rashes/lesions/lacerations noted. Extremities: +2 bilateral lower extremity pitting edema. Extremities exhibit normal range of motion. Extremities nontender. Neuro: Oriented X 3. Cranial nerve exam: II-XII are grossly intact No motor deficit. No sensory deficit. Reflexes normal. Course Reevaluation(s) Reevaluation #1: 52-year-old male with history of CHF, alcoholic hepatitis came in with worsening of bilateral lower extremity edema was shortness of breath patient with known history of alcohol abuse and withdrawal will start the patient on phenobarb, admit for diuresis. Time: 07:23 Medical Decision Making Differential Diagnosis Differential Diagnoses: The differential diagnosis associated with the presentation includes (CHF exacerbation, acute on chronic alcoholic hepatitis, alcohol withdrawal, severe anemia, electrolyte derangement.) Admission/Observation Consideration of admission/observation: Escalation of care including admission/observation considered Consult Healthcare Provider Management of the patient was discussed with: Hospitalist (Dr. Frank) Lab Data MDM Lab Attestation statement: I reviewed the patient's lab results. 08/05/23 04:15 08/04/23 23:26 Labs: Lab Results 08/04/23 08/04/23 08/05/23 Range/Units 23:26 23:41 00:32 WBC 9.5 (4.8-10.8) X10*3/uL RBC 3.15 L (4.60-5.80) X10*6/uL Hgb 7.4 L (14.0-18.0) g/dl Hct 24.0 L (42.0-52.0) % MCV 76.2 L (80.0-98.0) fL MCH 23.5 L (27.0-33.0) pg MCHC 30.8 L (31.0-36.0) g/dl RDW 23.5 H (11.0-16.0) % Plt Count 239 D (160-400) X10*3/uL MPV 9.2 L (9.4-12.4) fL Immature Gran % (Auto) 0.2 (0.0-0.4) % Neut % (Auto) 60.6 (45-73) % Lymph % (Auto) 25.9 (20-40) % [place] % (Auto) 11.4 H (2-11) % Eos % (Auto) 1.2 (0-4) % Baso % (Auto) 0.7 (0-2) % Lymph # (Auto) 2.5 (1.2-4.9) X10*3/uL [place] # (Auto) 1.1 (0.1-1.2) X10*3/uL Eos # (Auto) 0.1 (0.0-0.4) X10*3/uL Baso # (Auto) 0.1 (0.0-0.2) X10*3/uL Abs Immat Gran (auto) 0.02 (0.00-0.03) X10*3/uL Absolute Neuts (auto) 5.8 (2.0-8.3) x10*3/uL Absolute Nucleated RBC 0.000 (0.0-0.012) X10*3/uL Nucleated RBC % (auto) 0.0 (0.0-0.2) /100WBC Sodium 136 (135-145) mmol/L Potassium 4.4 (3.3-5.1) mmol/L Chloride 103 (96-108) mmol/L Carbon Dioxide 23 (22-29) mmol/L Anion Gap 14 (12-20) BUN 15 (9-16) mg/dL Creatinine 0.88 (0.5-1.4) mg/dL Estim Creat Clear Calc 134.5 Estimated GFR > 60 Random Glucose 117 H (60-115) mg/dL Calcium 8.0 L D (8.4-10.2) mg/dL Total Bilirubin 0.5 (0.0-1.0) mg/dL AST 169 H (5-37) U/L ALT 56 H (0-40) U/L Alkaline Phosphatase 174 H (39-117) U/L B-Natriuretic Peptide 91 (<100) pg/mL Total Protein 8.0 (6.5-8.0) g/dL Albumin 3.4 L (3.5-5.0) g/dL Urine Color Yellow Urine Appearance Clear Urine pH 6.0 (5.0-9.0) Ur Specific [place] <= 1.005 (1.005-1.025) Urine Protein Negative (Neg-Trace) mg/dL Urine Glucose (UA) Negative (Negative) mg/dL Urine Ketones Negative (Negative) mg/dL Urine Blood Negative (Negative) Urine Nitrite Negative (Negative) Ur Leukocyte Esterase Negative (Negative) Urine RBC 0-2 (0-2) /HPF Urine WBC 0-5 (0-5) /HPF Ur Squamous Epith Cells 0-2 (0-2) /HPF Urine Bacteria None Seen (None Seen) Hyaline Casts 0-2 (0-2) /LPF 08/05/24 Range/Units 04:15 WBC 7.0 (4.8-10.8) X10*3/uL RBC 3.69 L (4.60-5.80) X10*6/uL Hgb 8.7 L (14.0-18.0) g/dl Hct 28.3 L (42.0-52.0) % MCV 76.7 L (80.0-98.0) fL MCH 23.6 L (27.0-33.0) pg MCHC 30.7 L (31.0-36.0) g/dl RDW 23.5 H (11.0-16.0) % Plt Count (160-400) X10*3/uL MPV 9.0 L (9.4-12.4) fL Immature Gran % (Auto) 0.3 (0.0-0.4) % Neut % (Auto) 60.9 (45-73) % Lymph % (Auto) 25.4 (20-40) % [place] % (Auto) 10.7 (2-11) % Eos % (Auto) 1.6 (0-4) % Baso % (Auto) 1.1 (0-2) % Lymph # (Auto) 1.8 (1.2-4.9) X10*3/uL [place] # (Auto) 0.8 (0.1-1.2) X10*3/uL Eos # (Auto) 0.1 (0.0-0.4) X10*3/uL Baso # (Auto) 0.1 (0.0-0.2) X10*3/uL Abs Immat Gran (auto) 0.02 (0.00-0.03) X10*3/uL Absolute Neuts (auto) 4.3 (2.0-8.3) x10*3/uL Absolute Nucleated RBC 0.000 (0.0-0.012) X10*3/uL Nucleated RBC % (auto) 0.0 (0.0-0.2) /100WBC Sodium (135-145) mmol/L Potassium (3.3-5.1) mmol/L Chloride (96-108) mmol/L Carbon Dioxide (22-29) mmol/L Anion Gap (12-20) BUN (9-16) mg/dL Creatinine (0.5-1.4) mg/dL Estim Creat Clear Calc Estimated GFR Random Glucose (60-115) mg/dL Calcium (8.4-10.2) mg/dL Total Bilirubin (0.0-1.0) mg/dL AST (5-37) U/L ALT (0-40) U/L Alkaline Phosphatase (39-117) U/L B-Natriuretic Peptide (<100) pg/mL Total Protein (6.5-8.0) g/dL Albumin (3.5-5.0) g/dL Urine Color Urine Appearance Urine pH (5.0-9.0) Ur Specific [place] (1.005-1.025) Urine Protein (Neg-Trace) mg/dL Urine Glucose (UA) (Negative) mg/dL Urine Ketones (Negative) mg/dL Urine Blood (Negative) Urine Nitrite (Negative) Ur Leukocyte Esterase (Negative) Urine RBC (0-2) /HPF Urine WBC (0-5) /HPF Ur Squamous Epith Cells (0-2) /HPF Urine Bacteria (None Seen) Hyaline Casts (0-2) /LPF Independent Interpretation I performed an independent interpretation of an: Plain X-Ray (Chest: Mild pulmonary vascular congestion) Radiology Impression Discussion of test interpretation with radiology: I have reviewed the radiologist's reading. Chronic Conditions Patient?s care impacted by: Other (CHF, alcoholic liver cirrhosis.) Discharge Plan Discharge Clinical Impression: Acute exacerbation of CHF (congestive heart failure), Alcohol use disorder, severe, dependence Patient Disposition: Admitted As Inpatient Prescriptions: No Action doxycycline hyclate 100 mg tablet 100 mg PO Q12H 10 Days Qty: 20 0RF thiamine HCl (vitamin B1) 100 mg tablet 100 mg DAILY amlodipine 5 mg tablet 5 mg PO DAILY folic acid 1 mg tablet 1 mg PO DAILY hydroxyzine HCl 25 mg tablet 25 mg PO BID PRN (Reason: Anxiety) albuterol sulfate [Ventolin HFA] 90 mcg/actuation HFA aerosol inhaler 2 puff INHALATION Q6H PRN (Reason: wheezing) sertraline 50 mg tablet 50 mg PO DAILY spironolactone 50 mg tablet 50 mg PO DAILY cholecalciferol (vitamin D3) 25 mcg (1,000 unit) capsule 25 mcg DAILY quetiapine 25 mg tablet 25 mg BEDTIME docusate sodium 100 mg capsule 100 mg PO BID PRN (Reason: constipation) ferrous sulfate 325 mg (65 mg iron) tablet,delayed release (DR/EC) 325 mg PO DAILY furosemide [Lasix] 40 mg tablet 40 mg PO DAILY Qty: 30 0RF omeprazole 40 mg capsule,delayed release(DR/EC) 40 mg PO DAILY Qty: 30 0RF
--- NOTE | 2023-08-05 07:32 | PC.NURSE ---
Pt reports severe throat pain x2 weeks, continues to endorse discomfort in BLE; Provider notified. Pt denies all other complaints at this time. Pt continues to rest quietly on stretcher.
[2023-08-05] MEDS: Furosemide 20 MG/2 ML VIAL IVPUSH ×2 (08:03→18:36)
[2023-08-05] MEDS: Nitroglycerin 2 % Oint 1 GM Packet 0.5 INCH TRANSDERMA (08:04)
--- NOTE | 2023-08-05 08:18 | PC.NURSE ---
Pt medicated per MAR; Ambulated to bathroom independently. Pharmacy at bedside performing med rec. Pt appears in NAD. Placed on rn cardiac cath.
[2023-08-05 08:25] LABS: Ethanol 172 mg/dL
[2023-08-05 08:35] LABS: Troponin-I High Sensitivity 6.7 ng/L (<3.5-35.0)
[2023-08-05] MEDS: PHENobarbitaL sodium 130 MG/ML IM ONCE 301 MG IM (08:49)
--- NOTE | 2023-08-05 08:57 | PC.NURSE ---
Pt medicated per AUG. Urinal provided at bedside, patient reports frequent urination. Continues to endorse persistent throat pain, requesting pain medication. Contacting IP provider via TT.
[2023-08-05] MEDS: Acetaminophen 325 MG TABLET 650 MG PO (09:21)
--- NOTE | 2023-08-05 10:31 | PHA.MEDREC ---
Pharmacy Consult ? Medication Reconciliation Pharmacy has completed the medication reconciliation. Utilized medical interpreter services. Pt does not know medications. His is at work and cannot be contacted at this time. Called patient's pharmacy for med rec. Pt's pharmacy stated that the patient hasn't filled their amlodipine 5 mg daily since January 2023. However, when conducting a med rec on this patient during a prior visit to the hospital on June 2023, the patient's confirmed amlodipine 5 mg daily. Leaving on med rec at this time.
--- NOTE | 2023-08-05 11:10 | P.HPHOSP_ITS ---
History of Present Illness Date of Service: 08/05/23 Attending physician on admission: Sofi Wise Chief Complaint: SOB Pt is a Namibian-speaking 52-year-old male with a PMH significant for?HFpEF, alcohol use disorder, chronic pancreatitis, alcoholic cirrhosis with portal hypertension, portal vein thrombosis, chronic thrombocytopenia, HTN, HLD, and mild intermittent asthma who presents to the ED with?worsening lower leg edema and increased shortness of breath and difficulty breathing. LLE has been ongoing for months but worsened recently. States he he has gained around 40 lbs in the past 6 months. Pt has a long history of alcohol use disorder with alcoholic cirrhosis and portal hypertension. He was recently admitted to the hospital on 06/27-06/30 for similar symptoms. Reports he continues to drink all that I can and wakes up with uncontrollable tremors which are alleviated with 3-4 beers. Denies chest pain/pressure, palpitations. Some increased anxiety. Denies auditory or visual hallucinations. Denies hx of withdrawal seizures. In the ED pt was elevated heart rate up to 96 and soft BP as low as 107/51. Labs were significant for microcytic anemia 8.7/28.3 (around baseline), AST 169, ALT 56, alk-phos 174, and albumin 3.4. No significant electrolyte abnormalities. No leukocytosis. Troponin 6.7. BNP 91. Tox screen positive for ethyl alcohol of 172. CXR showed mild pulmonary vascular congestion with no focal consolidation. Pt was treated with Lasix 20mg IV, nitroglycerin, Tylenol, and placed on phenobarb protocol. Pt will be admitted to the hospital for treatment and further evaluation of acute HFpEF in the setting of decompensated alcoholic cirrhosis. Review of Systems 2 Review of Systems: Increasing lower leg edema Increasing shortness of breath Moderate resting tremors alleviated by alcohol Increased anxiety Denies auditory or visual hallucinations Denies chest pain/pressure, palpitations PMFSH Medical History Pancreatic lesion Peripheral neuropathy Portal vein thrombosis Recurrent acute pancreatitis Joint pain Insomnia Anxiety Asthma Hypertension Depression Alcoholic fatty liver Alcoholic cirrhosis of liver Alcohol abuse Social History Household Members: None Housing: Apartment Do you presently have visiting nurse or other home services: Yes ([facility]) Alcohol intake: current Alcohol intake frequency: 0-2 drinks per day Alcohol type: beer Comment: pt refuse Patient Tobacco Use Status: Current everyday Tobacco user Tobacco use type: Cigarette Cigarette Packs Per Day: 1 Cigarettes Per Day: 20.0 Years Smoked: 33 Smoked in Last 30 Days: Yes e-Cigarette/Vaping Use: Currently Using Patient Interested in Nicotine Replacement: No Second Hand Smoke Exposure: No Use of substances other than those prescribed or required for medical reasons: No Currently Displaying Signs/Symptoms of Drug Intoxication Withdrawal: No Have you been hit, kicked, punched, or otherwise hurt by someone within the past year? If so, by whom?: No Do you feel safe in your current relationship?: Yes Is there a partner from a previous relationship who is making you feel unsafe now?: No Are you made to feel afraid or neglected: No Advance Directives: No Advance Directives Information Provided: Yes Do you have thoughts of harming others: None Do you have a plan to hurt others: No Plan Recently lost weight without trying: No Eating poorly because of decreased appetite: No Nutrition Risks: Recent weight gain Poor oral hygiene: Yes service: No Meds Allergies Allergy/AdvReac Type Severity Reaction Status Date / Time aspirin Allergy Unknown rash Verified 07/19/23 13:42 Shrimp Flavor Allergy Unknown anaphylaxis Uncoded 07/11/23 12:11 Active Medications: Current Medications Pharmacy Consult (Consult Rx Etoh Phenob Im/Po) 1 each MISCELLANE ONCE PRN; Protocol PRN Reason: Consult order Phenobarbital (Phenobarbital 30 Mg Tablet) 60 mg PO BID [facility]; Protocol Stop: 08/07/23 21:01 Phenobarbital (Phenobarbital 30 Mg Tablet) 30 mg PO BID [facility]; Protocol Stop: 08/09/23 21:01 Phenobarbital (Phenobarbital 30 Mg Tablet) 30 mg PO DAILY [facility]; Protocol Stop: 08/11/23 09:01 Phenobarbital Sodium (Phenobarbital Sodium 130 Mg/Ml Vial Im Q3hx2) 226 mg IM Q3H [facility]; Protocol Stop: 08/05/23 14:31 Home Medications Medication Instructions Recorded Confirmed Last Taken Type albuterol sulfate 90 mcg/actuation 2 puff inhalation Q6H PRN wheezing 05/23/23 08/05/23 08/04/23 History aerosol inhaler (Ventolin HFA) amlodipine 5 mg tablet 5 mg PO DAILY 05/23/23 08/05/23 06/27/23 History cholecalciferol (vitamin D3) 25 25 mcg DAILY 05/23/23 08/05/23 08/04/23 History mcg (1,000 unit) capsule folic acid 1 mg tablet 1 mg PO DAILY 05/23/23 08/05/23 08/04/23 History sertraline 50 mg tablet 50 mg PO DAILY 05/23/23 08/05/23 08/04/23 History spironolactone 50 mg tablet 50 mg PO DAILY 05/23/23 08/05/23 08/04/23 History thiamine HCl (vitamin B1) 100 mg 100 mg DAILY 05/23/23 08/05/23 08/04/23 History tablet docusate sodium 100 mg capsule 100 mg PO BID PRN constipation 06/27/23 08/05/23 08/04/23 History ferrous sulfate 325 mg (65 mg 325 mg PO DAILY 06/27/23 08/05/23 08/04/23 History iron) tablet,delayed release quetiapine 25 mg tablet 25 mg BEDTIME 06/27/23 08/05/23 08/04/23 History gabapentin 100 mg capsule 100 mg PO BID PRN Pain 08/05/23 08/05/23 08/04/23 History omeprazole 40 mg capsule,delayed 40 mg PO DAILY@0630 08/05/23 08/05/23 08/04/23 History release Physical Exam 2 Vital Signs and Narrative: Vital Signs: Last Vital Signs Temp 98.3 F 08/05/23 09:28 Pulse 92 08/05/23 09:28 Resp 14 08/05/23 09:28 BP 134/64 08/05/23 09:28 Pulse Ox 96 08/05/23 09:28 O2 Del Method Room Air 08/05/23 09:28 BMI result Body Mass Index 38.9 Constitutional: Alert, in no acute distress. Mental Status: Oriented to person, place and time. Eyes: Pupils are equal, round, and reactive to light. Ear, Nose, and Throat: Oropharynx clear, mucous membranes moist. Ears and nose without deformities. Trachea midline. Respiratory: Clear to auscultation bilaterally. No wheezing, rales, or rhonchi. Cardiovascular: S1, S2 regular. No murmurs, rubs, or gallops. Gastrointestinal: Abdomen soft, non-tender, non-distended, obese. Normal bowel sounds. Neurologic: Cranial nerves II-XII are grossly intact bilaterally. No focal neurological deficits. Moves all extremities spontaneously. Moderate upper extremity tremors noted. Skin: Warm, dry. Musculoskeletal: No cyanosis or clubbing. Extremities: 2+ bilateral lower leg and fee edema. Psychiatric: Normal mood and affect. Results Labs 08/06/23 05:54 08/06/23 05:54 Labs: Laboratory Results - last 24 hr 08/04/23 08/04/23 08/05/23 23:26 23:41 00:32 MCV 76.2 L MCH 23.5 L MCHC 30.8 L RDW 23.5 H Plt Count 239 D MPV 9.2 L Immature Gran % (Auto) 0.2 Neut % (Auto) 60.6 Lymph % (Auto) 25.9 Montgomery % (Auto) 11.4 H Eos % (Auto) 1.2 Baso % (Auto) 0.7 Lymph # (Auto) 2.5 Montgomery # (Auto) 1.1 Eos # (Auto) 0.1 Baso # (Auto) 0.1 Abs Immat Gran (auto) 0.02 Absolute Neuts (auto) 5.8 Absolute Nucleated RBC 0.000 Nucleated RBC % (auto) 0.0 Anion Gap 14 Estim Creat Clear Calc 134.5 Estimated GFR > 60 Random Glucose 117 H Calcium 8.0 L D Total Bilirubin 0.5 AST 169 H ALT 56 H Alkaline Phosphatase 174 H Troponin I High Sens B-Natriuretic Peptide 91 Total Protein 8.0 Albumin 3.4 L Urine Color Yellow Urine Appearance Clear Urine pH 6.0 Ur Specific Henderson <= 1.005 Urine Protein Negative Urine Glucose (UA) Negative Urine Ketones Negative Urine Blood Negative Urine Nitrite Negative Ur Leukocyte Esterase Negative Urine RBC 0-2 Urine WBC 0-5 Ur Squamous Epith Cells 0-2 Urine Bacteria None Seen Hyaline Casts 0-2 Ethyl Alcohol 08/05/23 08/05/23 04:15 08:09 MCV 76.7 L MCH 23.6 L MCHC 30.7 L RDW 23.5 H Plt Count MPV 9.0 L Immature Gran % (Auto) 0.3 Neut % (Auto) 60.9 Lymph % (Auto) 25.4 Montgomery % (Auto) 10.7 Eos % (Auto) 1.6 Baso % (Auto) 1.1 Lymph # (Auto) 1.8 Montgomery # (Auto) 0.8 Eos # (Auto) 0.1 Baso # (Auto) 0.1 Abs Immat Gran (auto) 0.02 Absolute Neuts (auto) 4.3 Absolute Nucleated RBC 0.000 Nucleated RBC % (auto) 0.0 Anion Gap Estim Creat Clear Calc Estimated GFR Random Glucose Calcium Total Bilirubin AST ALT Alkaline Phosphatase Troponin I High Sens 6.7 B-Natriuretic Peptide Total Protein Albumin Urine Color Urine Appearance Urine pH Ur Specific Henderson Urine Protein Urine Glucose (UA) Urine Ketones Urine Blood Urine Nitrite Ur Leukocyte Esterase Urine RBC Urine WBC Ur Squamous Epith Cells Urine Bacteria Hyaline Casts Ethyl Alcohol 172 Imaging Radiologist's Impressions: Impressions Chest X-Ray 08/05/23 00:08 IMPRESSION: Mild pulmonary vascular congestion. No focal lung consolidation. Assessment and Plan (1) Decompensated hepatic cirrhosis: Status: Acute (2) CHF (congestive heart failure): Status: Acute Plan Pt is a Namibian-speaking 52-year-old male with a PMH significant for?HFpEF, alcohol use disorder, chronic pancreatitis, alcoholic cirrhosis with portal hypertension, portal vein thrombosis, chronic thrombocytopenia, HTN, HLD, and mild intermittent asthma who presents to the ED with?worsening lower leg edema and increased shortness of breath and difficulty breathing. Pt will be admitted to the hospital for treatment and further evaluation of acute HFpEF in the setting of decompensated alcoholic cirrhosis. Acute HFpEF exacerbation Likely secondary to decompensated hepatic cirrhosis Patient with weight gain, increased LLE, SOB, CXR with mild pulmonary vascular congestion, BNP likely falsely low due to morbid obesity Will treat with Lasix 20 mg IV b.i.d. Follow Lytes, I/O daily weights, low-salt diet Echocardiogram on 05/25/2023 found normal LVEF 55-60% with elevated filling pressures Monitor on telemetry Decompensated cirrhosis Complicated by portal hypertension, chronic thrombocytopenia, portal vein thrombosis Abdominal ultrasound on 06/27/2023 negative for ascites Continue spironolactone HTN Apparently has not filled amlopidine in months BP this visit has been soft or normotensive Monitor, add amlodipine as necessary GERD Continue PPt Mood disorder Continue home meds Full Code Attending:?Dr. Wise DVT Prophylaxis: Pneumatic boots d/t chronic thrombocytopenia Pt will require a hospitalization of at least two nights for treatment of?acute CHF exacerbation in the setting of decompensated alcoholic cirrhosis and alcohol withdrawal. Given that patient has failed outpatient therapy on diuretics, he will require hospitalization for administration of phenobarb protocol, IV diuretics, and close monitoring labs and cardiac function. Quality Stroke Does the patient have a stroke diagnosis?: No VTE Prior VTE?: No VTE Risk Level:: Medical - moderate - high VTE Device Contraindication: N/A - Device Ordered VTE Drug Contraindication: Treatment Not Indicated
[2023-08-05] MEDS: PHENobarbitaL sodium 130 MG/ML VIAL IM Q3Hx2 226 MG IM ×2 (11:43→14:20)
--- NOTE | 2023-08-05 11:48 | PC.NURSE ---
Pt medicated per MAR for EtOH withdrawal, denies all complaints outside of mild hand tremor. IP providers at bedside for admit.
[2023-08-05] MEDS: Folic Acid 1 MG TABLET PO (13:22)
[2023-08-05] MEDS: Sertraline HCL 50 MG TABLET PO (13:22)
[2023-08-05] MEDS: Omeprazole 40 MG CAPSULE.DR PO (13:23)
[2023-08-05] MEDS: Spironolactone 25 MG TABLET 50 MG PO (13:23)
[2023-08-05] MEDS: Thiamine HCL 100 MG TABLET PO (13:23)
[2023-08-05] MEDS: Multivitamin TABLET 1 TAB PO (13:23)
[2023-08-05] MEDS: Albuterol Sulfate 90 MCG 8 GM INHALER 2 PUFF INHALE (14:28)
[2023-08-05] MEDS: 0.9 % Sodium Chloride Flush 3 ML SYRINGE IVFLUSH (16:02)
[2023-08-05] MEDS: Gabapentin 100 MG CAPSULE PO (22:23)
[2023-08-05] MEDS: QUEtiapine Fumarate 25 MG TABLET PO (22:23)
[2023-08-05] MEDS: Melatonin 3 MG TABLET 6 MG PO (22:23)
[2023-08-06] VITALS: BP 137/64; PULSE 88; RESP 20; TEMP 36.7; O2SAT 97
[2023-08-06 03:59] VITALS: BP 119/58; PULSE 83; RESP 18; TEMP 36.7; O2SAT 96
[2023-08-06 06:27] LABS: Hematocrit 25.2 % (42.0-52.0); Hemoglobin 7.7 g/dl (14.0-18.0); Mean Corpuscular HGB Conc 30.6 g/dl (31.0-36.0); Mean Corpuscular Hemoglobin 23.5 pg (27.0-33.0); Mean Corpuscular Volume 77.1 fL (80.0-98.0); Mean Platelet Volume 9.1 fL (9.4-12.4); Platelet Count 165 X10*3/uL (160-400); Red Blood Count 3.27 X10*6/uL (4.60-5.80); Red Cell Distribution Width 22.5 % (11.0-16.0); White Blood Count 5.9 X10*3/uL (4.8-10.8)
[2023-08-06 06:40] LABS: Anion Gap 11 (12-20); Blood Urea Nitrogen 12 mg/dL (9-16); Calcium 8.3 mg/dL (8.4-10.2); Carbon Dioxide 25 mmol/L (22-29); Chloride 103 mmol/L (96-108); Creatinine Clr Calc Pharmacy 145.6; Estimated Glomerular Filt Rate > 60; Glucose Random 108 mg/dL (60-115); Potassium 3.2 mmol/L (3.3-5.1); Sodium 136 mmol/L (135-145)
[2023-08-06] MEDS: Omeprazole 40 MG CAPSULE.DR PO (06:41)
[2023-08-06 07:30] VITALS: BP 147/65; PULSE 81; RESP 16; TEMP 37.5; O2SAT 97
[2023-08-06] MEDS: Potassium Chloride Packet 20 MEQ PACKET 40 MEQ PO (09:49)
[2023-08-06] MEDS: Multivitamin TABLET 1 TAB PO (09:49)
[2023-08-06] MEDS: Thiamine HCL 100 MG TABLET PO (09:49)
[2023-08-06] MEDS: Spironolactone 25 MG TABLET 50 MG PO (09:49)
[2023-08-06] MEDS: PHENobarbitaL 30 MG TABLET 60 MG PO ×2 (09:49→20:33)
[2023-08-06] MEDS: Cholecalciferol (Vitamin D3) 25 MCG TABLET PO (09:49)
[2023-08-06] MEDS: Ferrous Sulfate 324 MG TABLET.DR PO (09:49)
[2023-08-06] MEDS: Folic Acid 1 MG TABLET PO (09:50)
[2023-08-06] MEDS: Furosemide 20 MG/2 ML VIAL IVPUSH ×2 (09:50→16:31)
[2023-08-06] MEDS: 0.9 % Sodium Chloride Flush 3 ML SYRINGE IVFLUSH ×3 (09:50→20:33)
[2023-08-06] MEDS: Sertraline HCL 50 MG TABLET PO (09:50)
--- NOTE | 2023-08-06 10:10 | MHC.CM.PN ---
CM MET WITH PT WITH A INFORMATION MANAGER PT LIVES ALONE AND IS IN THE PROCESS OF GETTING [employer] HE HAS A [facility] CM THAT CHECKS IN PERIODICALLY HE USES A WALKER HE SAYS HE HAS A HCP NAMING HIS S/O, SIDDHARTHA,. HIS AGENT HE DOES NOT KNOW THE NAME OF HIS PCP, BUT GOES TO [facility] IMM DELIVERED DCP: HOME NO SERVICES PT WILL NEED TRANSPORTATION ARRANGED
--- NOTE | 2023-08-06 11:08 | HO.PM.IMPN ---
Subjective Subjective Date of Service: 08/06/23 Interval History: chf excerbation,liver cirrosis Review of Systems sob improving denies chest pain around i/o 900 ml neg Physical Exam Vital Signs: Vital Signs: Last Vital Signs Temp 99.5 F 08/06/23 07:30 Pulse 81 08/06/23 07:30 Resp 16 08/06/23 07:30 BP 147/65 H 08/06/23 07:30 Pulse Ox 97 08/06/23 07:30 O2 Del Method Room Air 08/06/23 07:30 BMI result Body Mass Index 35.9 Appearance: Alert.? Oriented X3. cvs: rrr, [id number] , jvd present res: clear to auscultation ,no rhonchii or wheezing abd: no rebound or guarding ,nt, bs present. ext pulses present , no cyanosis ,has 2+ edema . neuro: axo3 , nonfocal. Objective Data Active Medications Acetaminophen (Acetaminophen 325 Mg Tablet) 650 mg PO Q6H PRN PRN Reason: Pain, Mild (Pain Scale 1-3) Albuterol Sulfate (Albuterol Sulfate 90 Mcg 8 Gm Inhaler) 2 puff INHALE Q6H PRN PRN Reason: wheezing Last Admin: 08/05/23 14:28 Dose: 2 puff Documented By: MARTY Benzonatate (Benzonatate 100 Mg Capsule) 100 mg PO TID PRN PRN Reason: Cough Docusate Sodium (Docusate Sodium 100 Mg Capsule) 100 mg PO DAILY PRN PRN Reason: Constipation Docusate Sodium (Docusate Sodium 100 Mg Capsule) 100 mg PO BID PRN PRN Reason: constipation Ferrous Sulfate (Ferrous Sulfate 324 Mg Tablet.) 324 mg PO DAILY [facility] Last Admin: 08/06/23 09:49 Dose: 324 mg Documented By: AZALIA Folic Acid (Folic Acid 1 Mg Tablet) 1 mg PO DAILY [facility] Last Admin: 08/06/23 09:50 Dose: 1 mg Documented By: AZALIA Furosemide (Furosemide 20 Mg/2 Ml Vial) 20 mg IVPUSH BID@0900,1800 [facility]; Protocol Last Admin: 08/06/23 09:50 Dose: 20 mg Documented By: AZALIA Gabapentin (Gabapentin 100 Mg Capsule) 100 mg PO BID PRN PRN Reason: Pain, Mild (Pain Scale 1-3) Last Admin: 08/05/23 22:23 Dose: 100 mg Documented By: ECHO Melatonin (Melatonin 3 Mg Tablet) 6 mg PO BEDTIME PRN PRN Reason: Insomnia Last Admin: 08/05/23 22:23 Dose: 6 mg Documented By: ECHO Multivitamins/Vitamin C (Multivitamin Tablet) 1 tab PO DAILY [facility] Stop: 08/08/23 12:44 Last Admin: 08/06/23 09:49 Dose: 1 tab Documented By: AZALIA Omeprazole (Omeprazole 40 Mg Capsule.Dr) 40 mg PO DAILY@0630 [facility] Last Admin: 08/06/23 06:41 Dose: 40 mg Documented By: ECHO Ondansetron HCl (Ondansetron Hcl 4 Mg/2 Ml Vial) 4 mg IVPUSH Q8H PRN PRN Reason: Nausea and Vomiting Pharmacy Consult (Consult Rx Etoh Phenob Im/Po) 1 each MISCELLANE ONCE PRN; Protocol PRN Reason: Consult order Phenobarbital (Phenobarbital 30 Mg Tablet) 60 mg PO BID [facility]; Protocol Stop: 08/07/23 21:01 Last Admin: 08/06/23 09:49 Dose: 60 mg Documented By: AZALIA Phenobarbital (Phenobarbital 30 Mg Tablet) 30 mg PO BID [facility]; Protocol Stop: 08/09/23 21:01 Phenobarbital (Phenobarbital 30 Mg Tablet) 30 mg PO DAILY [facility]; Protocol Stop: 08/11/23 09:01 Quetiapine Fumarate (Quetiapine Fumarate 25 Mg Tablet) 25 mg PO BEDTIME [facility] Last Admin: 08/05/23 22:23 Dose: 25 mg Documented By: ECHO Sertraline HCl (Sertraline Hcl 50 Mg Tablet) 50 mg PO DAILY [facility] Last Admin: 08/06/23 09:50 Dose: 50 mg Documented By: AZALIA Sodium Chloride (0.9 % Sodium Chloride Flush 3 Ml Syringe) 3 ml [facility] Last Admin: 08/06/23 09:50 Dose: 3 ml Documented By: AZALIA Spironolactone (Spironolactone 25 Mg Tablet) 50 mg PO DAILY [facility]; Protocol Last Admin: 08/06/23 09:49 Dose: 50 mg Documented By: AZALIA Thiamine HCl (Thiamine Hcl 100 Mg Tablet) 100 mg PO DAILY [facility] Last Admin: 08/06/23 09:49 Dose: 100 mg Documented By: AZALIA Vitamin D (Cholecalciferol (Vitamin D3) 25 Mcg Tablet) 25 mcg PO DAILY [facility] Last Admin: 08/06/23 09:49 Dose: 25 mcg Documented By: AZALIA Labs 08/06/23 05:54 08/06/23 05:54 Labs: Laboratory Results - last 24 hr 08/06/23 05:54 MCV 77.1 L MCH 23.5 L MCHC 30.6 L RDW 22.5 H Plt Count 165 D MPV 9.1 L Absolute Nucleated RBC 0.000 Nucleated RBC % (auto) 0.0 Anion Gap 11 L Estim Creat Clear Calc 145.6 Estimated GFR > 60 Random Glucose 108 Calcium 8.3 L Assessment and Plan (1) Decompensated hepatic cirrhosis: Status: Acute (2) CHF (congestive heart failure): Status: Acute Plan 52-year-old male with a PMH significant for?HFpEF, alcohol use disorder, chronic pancreatitis, alcoholic cirrhosis with portal hypertension, portal vein thrombosis, chronic thrombocytopenia, HTN, HLD, and mild intermittent asthma who presents to the ED with?worsening lower leg edema and increased shortness of breath and difficulty breathing. Pt will be admitted to the hospital for treatment and further evaluation of acute HFpEF in the setting of decompensated alcoholic cirrhosis. Acute HFpEF exacerbation Likely secondary to decompensated hepatic cirrhosis Patient with weight gain, increased LLE, SOB, CXR with mild pulmonary vascular congestion, BNP likely falsely low due to morbid obesity Echocardiogram on 05/25/2023 found normal LVEF 55-60% with elevated filling pressures. plan: Monitor on telemetry i/o neg 900 ml ,daily weights Lasix 20 mg IV b.i.d. Follow Lytes, I/O daily weights, low-salt diet Decompensated cirrhosis Complicated by portal hypertension, chronic thrombocytopenia, portal vein thrombosis lft's chronically elevated ( alcohol use also might be contributin) Abdominal ultrasound on 06/27/2023 negative for ascites moniter lft's Continue spironolactone,lasix as above. HTN: stable without meds. GERD:Continue PPt Mood disorder:Continue home meds ALcohol withdrawal: moniter ciwa continue phenobarbital protocol. hypokalemia : repleted and resolved. morbid obesity-advised to lose weight and cut down calories. ch microcytiic anemia : h.h similar and seems above transfusion threhold. continue to moniter cbc. Full Code DVT Prophylaxis: Pneumatic boots d/t chronic thrombocytopenia Ongoing hospitalization need for 48-72 hrs for treatment of?acute CHF exacerbation in the setting of decompensated alcoholic cirrhosis and alcohol withdrawal and Given that patient has failed outpatient therapy on diuretics, he will require hospitalization for administration of phenobarb protocol, IV diuretics, and close monitoring labs and cardiac function. Quality Stroke Does the patient have a stroke diagnosis?: No VTE Prior VTE?: No VTE Risk Level:: Medical - moderate - high VTE Device Contraindication: N/A - Device Ordered VTE Drug Contraindication: Treatment Not Indicated
--- NOTE | 2023-08-06 11:28 | MHC.RECOVRN ---
Referred to provide [facility] consult for pt. Upon arrival with medical cost consultant pt was sleeping soundly. Checked with nurse and she reports that he is comfortable and W/D sx currently managed on meds. Pt last CIWA was a 4. Nurse reports that ETOH level was significantly high even after at ER for some time. T/W informed Nurse Gisel that someone from [facility] will be back tomorrow for assessment. Report passed along to city supervisor Cindy Macedo NP and BARTOLO Menchaca.
[2023-08-06 11:39] VITALS: BP 123/61; PULSE 89; RESP 15; TEMP 37.3; O2SAT 98
[2023-08-06 11:55] LABS: Alanine Aminotransferase 49 U/L (0-40); Albumin Level 3.4 g/dL (3.5-5.0); Alkaline Phosphatase 180 U/L (39-117); Aspartate Amino Transferase 114 U/L (5-37); Bilirubin Direct 0.7 mg/dL (0.0-0.5); Bilirubin Total 1.7 mg/dL (0.0-1.0); Total Protein 7.7 g/dL (6.5-8.0)
[2023-08-06 15:36] VITALS: BP 148/74; PULSE 95; RESP 18; TEMP 36.7; O2SAT 98
[2023-08-06 20:00] VITALS: BP 141/67; PULSE 100; RESP 18; TEMP 36.4; O2SAT 98
[2023-08-06] MEDS: Melatonin 3 MG TABLET 6 MG PO (20:32)
[2023-08-06] MEDS: Gabapentin 100 MG CAPSULE PO (20:32)
[2023-08-06] MEDS: QUEtiapine Fumarate 25 MG TABLET PO (20:33)
[2023-08-07] VITALS (7 sets, daily range): BP systolic 120–134; BP diastolic 62–69; PULSE 75–98; RESP 18–20; TEMP 36.1–37.2; O2SAT 94–100
[2023-08-07] MEDS: Omeprazole 40 MG CAPSULE.DR PO (05:39)
[2023-08-07 08:18] LABS: Hematocrit 25.2 % (42.0-52.0); Hemoglobin 7.6 g/dl (14.0-18.0); Mean Corpuscular HGB Conc 30.2 g/dl (31.0-36.0); Mean Corpuscular Hemoglobin 23.5 pg (27.0-33.0); Mean Corpuscular Volume 77.8 fL (80.0-98.0); Mean Platelet Volume 9.4 fL (9.4-12.4); Platelet Count 154 X10*3/uL (160-400); Red Blood Count 3.24 X10*6/uL (4.60-5.80); Red Cell Distribution Width 22.5 % (11.0-16.0); White Blood Count 6.9 X10*3/uL (4.8-10.8)
[2023-08-07 08:34] LABS: Anion Gap 9 (12-20); Blood Urea Nitrogen 9 mg/dL (9-16); Calcium 8.7 mg/dL (8.4-10.2); Carbon Dioxide 25 mmol/L (22-29); Chloride 103 mmol/L (96-108); Creatinine Clr Calc Pharmacy 153.5; Estimated Glomerular Filt Rate > 60; Glucose Random 133 mg/dL (60-115); Potassium 3.4 mmol/L (3.3-5.1); Sodium 134 mmol/L (135-145)
[2023-08-07] MEDS: Multivitamin TABLET 1 TAB PO (08:49)
[2023-08-07] MEDS: Folic Acid 1 MG TABLET PO (08:49)
[2023-08-07] MEDS: Furosemide 20 MG/2 ML VIAL IVPUSH ×2 (08:49→17:26)
[2023-08-07] MEDS: Sertraline HCL 50 MG TABLET PO (08:49)
[2023-08-07] MEDS: Thiamine HCL 100 MG TABLET PO (08:49)
[2023-08-07] MEDS: 0.9 % Sodium Chloride Flush 3 ML SYRINGE IVFLUSH ×3 (08:50→20:09)
[2023-08-07] MEDS: Acetaminophen 325 MG TABLET 650 MG PO (08:50)
[2023-08-07] MEDS: Cholecalciferol (Vitamin D3) 25 MCG TABLET PO (08:50)
[2023-08-07] MEDS: Spironolactone 25 MG TABLET 50 MG PO (08:50)
[2023-08-07] MEDS: PHENobarbitaL 30 MG TABLET 60 MG PO ×2 (08:50→20:05)
[2023-08-07] MEDS: Ferrous Sulfate 324 MG TABLET.DR PO (08:50)
--- NOTE | 2023-08-07 14:07 | P.PNIM_ITS ---
Subjective Subjective Date of Service: 08/07/23 Interval History: decompensated liver dis Review of Systems gets exceersional dyspnea has b/l leg edema no fever or abd pain Physical Exam 2 Vital Signs: Vital Signs: Last Vital Signs Temp 98.9 F 08/07/23 11:37 Pulse 98 08/07/23 11:37 Resp 20 08/07/23 11:37 BP 133/64 08/07/23 11:37 Pulse Ox 98 08/07/23 11:37 O2 Del Method Room Air 08/07/23 11:37 BMI result Body Mass Index 35.9 Appearance: Alert.? Oriented X3. cvs: rrr, [id number] , jvd present res: clear to auscultation ,no rhonchii or wheezing abd: no rebound or guarding ,nt, bs present. ext pulses present , no cyanosis ,has 2+ edema . neuro: axo3 , nonfocal. Objective Data Active Medications Acetaminophen (Acetaminophen 325 Mg Tablet) 650 mg PO Q6H PRN PRN Reason: Pain, Mild (Pain Scale 1-3) Last Admin: 08/07/23 08:50 Dose: 650 mg Documented By: AZALIA Albuterol Sulfate (Albuterol Sulfate 90 Mcg 8 Gm Inhaler) 2 puff INHALE Q6H PRN PRN Reason: wheezing Last Admin: 08/05/23 14:28 Dose: 2 puff Documented By: MARTY Benzonatate (Benzonatate 100 Mg Capsule) 100 mg PO TID PRN PRN Reason: Cough Docusate Sodium (Docusate Sodium 100 Mg Capsule) 100 mg PO DAILY PRN PRN Reason: Constipation Docusate Sodium (Docusate Sodium 100 Mg Capsule) 100 mg PO BID PRN PRN Reason: constipation Ferrous Sulfate (Ferrous Sulfate 324 Mg Tablet.) 324 mg PO DAILY [facility] Last Admin: 08/07/23 08:50 Dose: 324 mg Documented By: AZALIA Folic Acid (Folic Acid 1 Mg Tablet) 1 mg PO DAILY [facility] Last Admin: 08/07/23 08:49 Dose: 1 mg Documented By: AZALIA Furosemide (Furosemide 20 Mg/2 Ml Vial) 20 mg IVPUSH BID@0900,1800 [facility]; Protocol Last Admin: 08/07/23 08:49 Dose: 20 mg Documented By: AZALIA Gabapentin (Gabapentin 100 Mg Capsule) 100 mg PO BID PRN PRN Reason: Pain, Mild (Pain Scale 1-3) Last Admin: 08/06/23 20:32 Dose: 100 mg Documented By: JOSEEMA Melatonin (Melatonin 3 Mg Tablet) 6 mg PO BEDTIME PRN PRN Reason: Insomnia Last Admin: 08/06/23 20:32 Dose: 6 mg Documented By: DARRELL Multivitamins/Vitamin C (Multivitamin Tablet) 1 tab PO DAILY [facility] Stop: 08/08/23 12:44 Last Admin: 08/07/23 08:49 Dose: 1 tab Documented By: AZALIA Omeprazole (Omeprazole 40 Mg Capsule.Dr) 40 mg PO DAILY@0630 [facility] Last Admin: 08/07/23 05:39 Dose: 40 mg Documented By: DARRELL Ondansetron HCl (Ondansetron Hcl 4 Mg/2 Ml Vial) 4 mg IVPUSH Q8H PRN PRN Reason: Nausea and Vomiting Pharmacy Consult (Consult Rx Etoh Phenob Im/Po) 1 each MISCELLANE ONCE PRN; Protocol PRN Reason: Consult order Phenobarbital (Phenobarbital 30 Mg Tablet) 60 mg PO BID [facility]; Protocol Stop: 08/07/23 21:01 Last Admin: 08/07/23 08:50 Dose: 60 mg Documented By: AZALIA Phenobarbital (Phenobarbital 30 Mg Tablet) 30 mg PO BID [facility]; Protocol Stop: 08/09/23 21:01 Phenobarbital (Phenobarbital 30 Mg Tablet) 30 mg PO DAILY [facility]; Protocol Stop: 08/11/23 09:01 Quetiapine Fumarate (Quetiapine Fumarate 25 Mg Tablet) 25 mg PO BEDTIME [facility] Last Admin: 08/06/23 20:33 Dose: 25 mg Documented By: DARRELL Sertraline HCl (Sertraline Hcl 50 Mg Tablet) 50 mg PO DAILY [facility] Last Admin: 08/07/23 08:49 Dose: 50 mg Documented By: AZALIA Sodium Chloride (0.9 % Sodium Chloride Flush 3 Ml Syringe) 3 ml IVFLUSH [facility] Last Admin: 08/07/23 08:50 Dose: 3 ml Documented By: AZALIA Spironolactone (Spironolactone 25 Mg Tablet) 50 mg PO DAILY [facility]; Protocol Last Admin: 08/07/23 08:50 Dose: 50 mg Documented By: AZALIA Thiamine HCl (Thiamine Hcl 100 Mg Tablet) 100 mg PO DAILY [facility] Last Admin: 08/07/23 08:49 Dose: 100 mg Documented By: AZALIA Vitamin D (Cholecalciferol (Vitamin D3) 25 Mcg Tablet) 25 mcg PO DAILY [facility] Last Admin: 08/07/23 08:50 Dose: 25 mcg Documented By: AZALIA Labs 08/07/23 07:49 08/07/23 07:49 Labs: Laboratory Results - last 24 hr 08/07/23 07:49 MCV 77.8 L MCH 23.5 L MCHC 30.2 L RDW 22.5 H Plt Count 154 L MPV 9.4 Absolute Nucleated RBC 0.000 Nucleated RBC % (auto) 0.0 Anion Gap 9 L Estim Creat Clear Calc 153.5 Estimated GFR > 60 Random Glucose 133 H Calcium 8.7 Assessment and Plan (1) Decompensated hepatic cirrhosis: Status: Acute (2) CHF (congestive heart failure): Status: Acute (3) Anemia: Status: Acute Plan 52-year-old male with a PMH significant for?HFpEF, alcohol use disorder, chronic pancreatitis, alcoholic cirrhosis with portal hypertension, portal vein thrombosis, chronic thrombocytopenia, HTN, HLD, and mild intermittent asthma who presents to the ED with?worsening lower leg edema and increased shortness of breath and difficulty breathing. Pt will be admitted to the hospital for treatment and further evaluation of acute HFpEF in the setting of decompensated alcoholic cirrhosis. Acute HFpEF exacerbation Likely secondary to decompensated hepatic cirrhosis Patient with weight gain, increased LLE, SOB, CXR with mild pulmonary vascular congestion, BNP likely falsely low due to morbid obesity Echocardiogram on 05/25/2023 found normal LVEF 55-60% with elevated filling pressures. plan: Monitor on telemetry i/o 2/2.3 liter ,daily weights Lasix 20 mg IV b.i.d. Follow Lytes, I/O daily weights, low-salt diet Decompensated cirrhosis Complicated by portal hypertension, chronic thrombocytopenia, portal vein thrombosis lft's chronically elevated ( alcohol use also might be contributin) Abdominal ultrasound on 06/27/2023 negative for ascites moniter lft's Continue spironolactone,lasix as above. HTN: stable without meds. GERD:Continue PPt Mood disorder:Continue home meds ALcohol withdrawal: moniter ciwa continue phenobarbital protocol. hypokalemia : repleted and resolved. morbid obesity-advised to lose weight and cut down calories. ch microcytiic anemia : h.h similar and seems above transfusion threhold. continue to moniter cbc. Full Code DVT Prophylaxis: Pneumatic boots d/t chronic thrombocytopenia Ongoing hospitalization need for 48-72 hrs for treatment of?acute CHF exacerbation in the setting of decompensated alcoholic cirrhosis and alcohol withdrawal and Given that patient has failed outpatient therapy on diuretics, he will require hospitalization for administration of phenobarb protocol, IV diuretics, and close monitoring labs and cardiac function. Quality Stroke Does the patient have a stroke diagnosis?: No VTE Prior VTE?: No VTE Risk Level:: Medical - moderate - high VTE Device Contraindication: N/A - Device Ordered VTE Drug Contraindication: Treatment Not Indicated
--- NOTE | 2023-08-07 15:43 | MHC.RECOVRN ---
Chart reviewed. Attempted to meet with pt, pt asleep. Resources left at bedside.
[2023-08-07] MEDS: Nicotine 14 MG PATCH.TD24 TRANSDERMA (20:05)
[2023-08-07] MEDS: QUEtiapine Fumarate 25 MG TABLET PO (20:05)
[2023-08-08 03:04] VITALS: BP 106/44; PULSE 83; RESP 20; TEMP 37.2; O2SAT 97
[2023-08-08] MEDS: Omeprazole 40 MG CAPSULE.DR PO (05:56)
[2023-08-08 06:03] VITALS: BMI 36.0
[2023-08-08 07:13] LABS: Hematocrit 27.2 % (42.0-52.0); Mean Corpuscular HGB Conc 29.4 g/dl (31.0-36.0); Mean Corpuscular Hemoglobin 23.9 pg (27.0-33.0); Mean Corpuscular Volume 81.2 fL (80.0-98.0); Mean Platelet Volume 9.5 fL (9.4-12.4); Platelet Count 168 X10*3/uL (160-400); Red Blood Count 3.35 X10*6/uL (4.60-5.80); White Blood Count 7.6 X10*3/uL (4.8-10.8)
[2023-08-08 07:32] LABS: Anion Gap 12 (12-20); Blood Urea Nitrogen 14 mg/dL (9-16); Calcium 8.7 mg/dL (8.4-10.2); Carbon Dioxide 25 mmol/L (22-29); Chloride 103 mmol/L (96-108); Creatinine Clr Calc Pharmacy 145.7; Estimated Glomerular Filt Rate > 60; Glucose Random 122 mg/dL (60-115); Potassium 3.9 mmol/L (3.3-5.1); Sodium 136 mmol/L (135-145)
[2023-08-08 07:41] VITALS: BP 119/58; PULSE 84; RESP 16; TEMP 36.7; O2SAT 98
[2023-08-08] MEDS: Furosemide 20 MG/2 ML VIAL IVPUSH (07:58)
[2023-08-08] MEDS: PHENobarbitaL 30 MG TABLET PO (07:59)
[2023-08-08] MEDS: Spironolactone 25 MG TABLET 50 MG PO (08:02)
[2023-08-08] MEDS: Folic Acid 1 MG TABLET PO (08:02)
[2023-08-08] MEDS: Sertraline HCL 50 MG TABLET PO (08:02)
[2023-08-08] MEDS: Cholecalciferol (Vitamin D3) 25 MCG TABLET PO (08:02)
[2023-08-08] MEDS: Multivitamin TABLET 1 TAB PO (08:02)
[2023-08-08] MEDS: Ferrous Sulfate 324 MG TABLET.DR PO (08:02)
[2023-08-08] MEDS: 0.9 % Sodium Chloride Flush 3 ML SYRINGE IVFLUSH (08:03)
[2023-08-08] MEDS: Thiamine HCL 100 MG TABLET PO (08:24)
--- NOTE | 2023-08-08 11:40 | PM.DS ---
DS: Providers Provider Date of Service: 08/08/23 Date of admission: 08/05/23 12:33 Date of discharge: 08/08/23 Primary care physician: Nhi So Consults: 08/05/23 12:38 Addiction Medicine Routine Consulting Provider: Addiction Covering Reason for consultation: Alcohol use disorder 08/05/23 18:54 Addiction Medicine Routine Consulting Provider: Addiction Covering Reason for consultation: ETOH Has provider been notified: No DS: Diagnosis Discharge Diagnosis (1) Decompensated hepatic cirrhosis: Status: Acute (2) Alcohol use disorder, severe, dependence: Status: Acute (3) Left against medical advice: Status: Inactive (4) Acute on chronic heart failure with preserved ejection fraction (HFpEF): Status: Acute DS: Summary Hospital Course Hospital Course: from admission H+P by hospitalist ESTEBAN [place], 08/05/23: Pt is a Guamanian-speaking 52-year-old male with a PMH significant for?HFpEF, alcohol use disorder, chronic pancreatitis, alcoholic cirrhosis with portal hypertension, portal vein thrombosis, chronic thrombocytopenia, HTN, HLD, and mild intermittent asthma who presents to the ED with?worsening lower leg edema and increased shortness of breath and difficulty breathing. LLE has been ongoing for months but worsened recently. States he he has gained around 40 lbs in the past 6 months. Pt has a long history of alcohol use disorder with alcoholic cirrhosis and portal hypertension. He was recently admitted to the hospital on 06/27-06/30 for similar symptoms. Reports he continues to drink all that I can and wakes up with uncontrollable tremors which are alleviated with 3-4 beers. Denies chest pain/pressure, palpitations. Some increased anxiety. Denies auditory or visual hallucinations. Denies hx of withdrawal seizures. In the ED pt was elevated heart rate up to 96 and soft BP as low as 107/51. Labs were significant for microcytic anemia 8.7/28.3 (around baseline), AST 169, ALT 56, alk-phos 174, and albumin 3.4. No significant electrolyte abnormalities. No leukocytosis. Troponin 6.7. BNP 91. Tox screen positive for ethyl alcohol of 172. CXR showed mild pulmonary vascular congestion with no focal consolidation. Pt was treated with Lasix 20mg IV, nitroglycerin, Tylenol, and placed on phenobarb protocol. Pt will be admitted to the hospital for treatment and further evaluation of acute HFpEF in the setting of decompensated alcoholic cirrhosis. He was admitted to [place] [facility] and treated with IV diuresis for HFpEF exacerbation as well as edema from cirrhosis. Spironolactone was resumed. Recent echo 05/25/23 showed normal LVEF and elevated filling pressures. He was not hypoxic. No signs of GI bleeding. For alcohol withdrawal, he was treated with phenobarbital taper. Quite suddenly on 08/08/23, he elected to leave the hospital against medical advise despite counseling on the risks of incompletely treated alcohol withdrawal and volume overload. He left before the Addiction Team could meet him. Time Attestation Total time managing care of this patient today: 35 mintues. Discharge coordination time: Greater than 30 minutes Quality: Safe Use of Opioids Does Pt have an Active Cancer Diagnosis on the Problem List?: No Quality: Stroke Does the patient have a stroke diagnosis?: No Physical Exam Vital Signs: Vital Signs: Last Vital Signs Temp 98.1 F 08/08/23 07:41 Pulse 84 08/08/23 07:41 Resp 16 08/08/23 07:41 BP 119/58 L 08/08/23 07:41 Pulse Ox 98 08/08/23 07:41 O2 Del Method Room Air 08/08/23 07:41 BMI result Body Mass Index 36.0 Gen: in no acute distress HEENT: sclera anicteric, moist mucus membranes Neck: supple Lungs: clear to auscultation bilaterally Heart: regular rate and rhythm, no murmurs Abd: soft, non-tender, non-distended, obese Ext: 2+ pitting edema Skin: warm/well-perfused Neuro: alert and oriented x3, no focal findings Psych: appropriate affect DS: Data Data Completed and Pending Completed studies during hospitalization [Text1]: Laboratory Results WBC 7.6 X10*3/uL (4.8-10.8) 08/08/23 06:42 RBC 3.35 X10*6/uL (4.60-5.80) L 08/08/23 06:42 Hgb 8.0 g/dl (14.0-18.0) L 08/08/23 06:42 Hct 27.2 % (42.0-52.0) L 08/08/23 06:42 MCV 81.2 fL (80.0-98.0) 08/08/23 06:42 MCH 23.9 pg (27.0-33.0) L 08/08/23 06:42 MCHC 29.4 g/dl (31.0-36.0) L 08/08/23 06:42 RDW 23.0 % (11.0-16.0) H 08/08/23 06:42 Plt Count 168 X10*3/uL (160-400) 08/08/23 06:42 MPV 9.5 fL (9.4-12.4) 08/08/23 06:42 Immature Gran % (Auto) 0.3 % (0.0-0.4) 08/05/23 04:15 Neut % (Auto) 60.9 % (45-73) 08/05/23 04:15 Lymph % (Auto) 25.4 % (20-40) 08/05/23 04:15 Glenn % (Auto) 10.7 % (2-11) 08/05/23 04:15 Eos % (Auto) 1.6 % (0-4) 08/05/23 04:15 Baso % (Auto) 1.1 % (0-2) 08/05/23 04:15 Lymph # (Auto) 1.8 X10*3/uL (1.2-4.9) 08/05/23 04:15 Glenn # (Auto) 0.8 X10*3/uL (0.1-1.2) 08/05/23 04:15 Eos # (Auto) 0.1 X10*3/uL (0.0-0.4) 08/05/23 04:15 Baso # (Auto) 0.1 X10*3/uL (0.0-0.2) 08/05/23 04:15 Abs Immat Gran (auto) 0.02 X10*3/uL (0.00-0.03) 08/05/23 04:15 Absolute Neuts (auto) 4.3 x10*3/uL (2.0-8.3) 08/05/23 04:15 Absolute Nucleated RBC 0.000 X10*3/uL (0.0-0.012) 08/08/23 06:42 Nucleated RBC % (auto) 0.0 /100WBC (0.0-0.2) 08/08/23 06:42 Sodium 136 mmol/L (135-145) 08/08/23 06:42 Potassium 3.9 mmol/L (3.3-5.1) 08/08/23 06:42 Chloride 103 mmol/L (96-108) 08/08/23 06:42 Carbon Dioxide 25 mmol/L (22-29) 08/08/23 06:42 Anion Gap 12 (12-20) 08/08/23 06:42 BUN 14 mg/dL (9-16) 08/08/23 06:42 Creatinine 0.78 mg/dL (0.5-1.4) 08/08/23 06:42 Estim Creat Clear Calc 145.7 08/08/23 06:42 Estimated GFR > 60 08/08/23 06:42 Random Glucose 122 mg/dL (60-115) H 08/08/23 06:42 Calcium 8.7 mg/dL (8.4-10.2) 08/08/23 06:42 Total Bilirubin 1.7 mg/dL (0.0-1.0) H 08/06/23 05:54 Direct Bilirubin 0.7 mg/dL (0.0-0.5) H 08/06/23 05:54 AST 114 U/L (5-37) H 08/06/23 05:54 ALT 49 U/L (0-40) H 08/06/23 05:54 Alkaline Phosphatase 180 U/L (39-117) H 08/06/23 05:54 Troponin I High Sens 6.7 ng/L (<3.5-35.0) 08/05/23 08:09 B-Natriuretic Peptide 91 pg/mL (<100) 08/05/23 00:32 Total Protein 7.7 g/dL (6.5-8.0) 08/06/23 05:54 Albumin 3.4 g/dL (3.5-5.0) L 08/06/23 05:54 Urine Color Yellow 08/05/23 00:32 Urine Appearance Clear 08/05/23 00:32 Urine pH 6.0 (5.0-9.0) 08/05/23 00:32 Ur Specific [place] <= 1.005 (1.005-1.025) 08/05/23 00:32 Urine Protein Negative mg/dL (Neg-Trace) 08/05/23 00:32 Urine Glucose (UA) Negative mg/dL (Negative) 08/05/23 00:32 Urine Ketones Negative mg/dL (Negative) 08/05/23 00:32 Urine Blood Negative (Negative) 08/05/23 00:32 Urine Nitrite Negative (Negative) 08/05/23 00:32 Ur Leukocyte Esterase Negative (Negative) 08/05/23 00:32 Urine RBC 0-2 /HPF (0-2) 08/05/23 00:32 Urine WBC 0-5 /HPF (0-5) 08/05/23 00:32 Ur Squamous Epith Cells 0-2 /HPF (0-2) 08/05/23 00:32 Urine Bacteria None Seen (None Seen) 08/05/23 00:32 Hyaline Casts 0-2 /LPF (0-2) 08/05/23 00:32 Ethyl Alcohol 172 mg/dL 08/05/23 08:09 Impressions Chest X-Ray 08/05/23 00:08 IMPRESSION: Mild pulmonary vascular congestion. No focal lung consolidation. Discharge Plan Discharge Anticipated Discharge Date/Time: 08/08/23 11:28 Patient Disposition: Left Against Medical Advice Discharge Diagnosis: Alcohol withdrawal, decompensated liver cirrhosis, CHF exacerbation, LEFT AGAINST MEDICAL ADVICE Referrals: Nhi So [Primary Care Provider] - 1 Week Discharge Medications: Continued gabapentin 100 mg capsule 100 mg PO BID PRN (Reason: Pain) omeprazole 40 mg capsule,delayed release(DR/EC) 40 mg PO DAILY@0630 thiamine HCl (vitamin B1) 100 mg tablet 100 mg DAILY amlodipine 5 mg tablet 5 mg PO DAILY folic acid 1 mg tablet 1 mg PO DAILY albuterol sulfate [Ventolin HFA] 90 mcg/actuation HFA aerosol inhaler 2 puff INHALATION Q6H PRN (Reason: wheezing) sertraline 50 mg tablet 50 mg PO DAILY spironolactone 50 mg tablet 50 mg PO DAILY cholecalciferol (vitamin D3) 25 mcg (1,000 unit) capsule 25 mcg DAILY quetiapine 25 mg tablet 25 mg BEDTIME docusate sodium 100 mg capsule 100 mg PO BID PRN (Reason: constipation) ferrous sulfate 325 mg (65 mg iron) tablet,delayed release (DR/EC) 325 mg PO DAILY furosemide [Lasix] 40 mg tablet 40 mg PO DAILY Qty: 30 0RF Discharge Orders: Discharge Order (Routine); Ordered 08/08/23 Ordered By: Adis rFancis Diet: Low salt diet Activity on Discharge: As tolerated Care Plan Goals: sobriety, liver health, cardiac health Health Concerns: Alcohol withdrawal, decompensated liver cirrhosis, CHF exacerbation LEFT AGAINST MEDICAL ADVICE Plan of Treatment: Return to the hospital [facility]. Assessment: See Discharge Summary.
--- NOTE | 2023-08-08 12:02 | MHC.CM.PN ---
Pt left AMA.
== END 2023-08-08 12:07 | disposition left against medical advice (07) | DRG 291 ==
LOC: HO.ED 08-05 07:29 → HO.EDOVER 08-05 12:43 → HO.IMC 08-05 17:06
PROVIDERS: Internal Medicine; Admitting Provider Student in an Organized Health Care Education/Training Program; Emergency Provider Emergency Medicine; PCP Internal Medicine; Visit Provider Family Medicine
DX: I11.0 Hypertensive heart disease with heart failure (principal); I50.33 Acute on chronic diastolic (congestive) heart failure; I81 Portal vein thrombosis; F10.239 Alcohol dependence with withdrawal, unspecified; F39 Unspecified mood [affective] disorder; K70.30 Alcoholic cirrhosis of liver without ascites; K21.9 Gastro-esophageal reflux disease without esophagitis; D64.9 Anemia, unspecified; E66.01 Morbid (severe) obesity due to excess calories; Z68.36 Body mass index [BMI] 36.0-36.9, adult; Z71.3 Dietary counseling and surveillance; F17.210 Nicotine dependence, cigarettes, uncomplicated; Z71.6 Tobacco abuse counseling; J45.20 Mild intermittent asthma, uncomplicated; Y90.6 Blood alcohol level of 120-199 mg/100 ml; D69.59 Other secondary thrombocytopenia; Z79.899 Other long term (current) drug therapy
CPT/HCPCS: 36415; 71045; 80048; 80053; 80076; 80307; 81001; 83880; 84484; 85025; 85027; 99285; J1940; J2560

== ENCOUNTER → 2023-08-05 12:33 | Outpatient (BNV) | payer OTHER, SELFPAY | PROVIDERS: Admitting Provider Student in an Organized Health Care Education/Training Program; Emergency Provider Emergency Medicine; Visit Provider Student in an Organized Health Care Education/Training Program | DX: K72.90 Hepatic failure, unspecified without coma (principal); K74.60 Unspecified cirrhosis of liver; F10.939 Alcohol use, unspecified with withdrawal, unspecified; I50.33 Acute on chronic diastolic (congestive) heart failure; Z53.29 Procedure and treatment not carried out because of patient's decision for other reasons | CPT/HCPCS: 99223; 99232; 99239 ==